=== PATIENT | female | born 1960 | race Caucasian/White ===

== ENCOUNTER 2020-04-30 13:30 | Emergency (ER) | payer OTHER, SELFPAY ==
--- NOTE | ~2020-04-30 | XR_ITS ---
XR tibia fibula RT 2V 04/30/2020 14:03 INDICATION: Right leg pain status post recent fall PROCEDURE: 2 views right tibia/fibula COMPARISON: 08/03/2016 FINDINGS: Fracture, dislocation or subluxation is not identified. The soft tissues appear within norm al limits. No foreign bodies are identified. IMPRESSION: 1: NO ACUTE BONE OR JOINT ABNORMALITY IDENTIFIED. Reviewed, dictated and finalized at location A.
[2020-04-30 13:49] VITALS: PULSE 87; RESP 16; TEMP 36.7; O2SAT 99
[2020-04-30 13:53] VITALS: BP 110/66
--- NOTE | 2020-04-30 14:02 | ED.GENADULT ---
HPI - General Adult General Chief complaint: Extremity Injury, Lower Stated complaint: fell right leg pain Time Seen by Provider: 04/30/20 14:02 Source: patient and RN notes reviewed Mode of arrival: ambulatory (with walker) Limitations: no limitations History of Present Illness HPI narrative: 59-year-old female presents with complains of right anterior-lateral knee-leg (below knee) pain for 1 day. Andra says she fell on 04/29/20 without injury to head. Advil 800mg, last this morning at 09:30 without relief. No radiation of pain. No numbness or tingling, or bleeding. No swelling. No loss of mobility. Exacerbating factor consist of bearing weight. Denies loss of consciousness. No fever or chills. Denies nausea, vomiting, and abdominal pain. LMP hysterectoomy. Remains active. The patient reports she have not been diagnosed with COVID-19. The patient reports she is not waiting for the results of a COVID-19 lab test. The patient reports she do not have fever, chills, weakness, or fatigue. The patient reports she do not have a new or worsening cough or shortness of breath. Denies chest pain. The patient reports she do not have any rhinorrhea, congestion, sore throat, loss of taste, nausea, vomiting, abdominal pain, and diarrhea. Tolerating po intake well. Denies recent traveling. Denies concerns for COVID-19 or exposures been home with limited outdoor exposure except for essential household needs, work, and return home. At this time, patient is not suspected of having COVID-19. Some parts of this dictation were generated by voice recognition software and may contain typographical and/or grammatical inaccuracies. Related Data Home Medications Medication Instructions Recorded Confirmed cetirizine 10 mg tablet 10 mg PO DAILY PRN 07/03/19 02/12/20 fluticasone propionate 50 2 spray NASAL DAILY PRN 07/03/19 02/12/20 mcg/actuation nasal spray,suspension cholecalciferol (vitamin D3) 125 125 mcg PO DAILY 02/12/20 02/12/20 mcg (5,000 unit) capsule cyanocobalamin (vitamin B-12) 5,000 mcg SUBLINGUAL DAILY 02/12/20 02/12/20 5,000 mcg sublingual tablet diazepam 5 mg PO QID PRN 04/30/20 04/30/20 furosemide 20 mg PO QAM 04/30/20 04/30/20 Allergies Allergy/AdvReac Type Severity Reaction Status Date / Time adhesive tape Allergy Unknown BLISTER Verified 02/12/20 11:33 clonazepam AdvReac Unknown Drowsy Verified 02/12/20 11:33 Review of Systems Review of Systems: Narrative: CONSTITUTIONAL: Denies fever, chills, sweats. EYES: Denies visual changes, redness, discharge. ENT: Denies rhinorrhea, congestion, sore throat, otalgia. CARDIOVASCULAR: Denies chest pain, palpitations, edema. RESPIRATORY: Denies dyspnea, wheezing, cough. GASTROINTESTINAL: Denies abdominal pain, nausea, vomiting, diarrhea. GENITOURINARY: Denies dysuria, hematuria, abnormal discharge SKIN: Denies rash or itching. MUSCULOSKELETAL: Denies acute back pain or myalgia. Complains right anterior-lateral knee-leg (below knee) pain. NEUROLOGIC: Denies numbness or focal weakness. PSYCHIATRIC: Denies anxiety or depression. All other systems reviewed & are unremarkable except as noted in HPI and below. [facility] Past Medical History Medical History (Updated 04/30/20 @ 14:28 by RONALD Cruz) Diabetic gastroparesis Essential (primary) hypertension Fibromyalgia Glucose intolerance Intervertebral disc degeneration (~2001) Major depressive disorder, recurrent, moderate Metabolic syndrome Other obesity due to excess calories Primary insomnia Surgical History Surgical History (Updated 04/30/20 @ 14:28 by RONALD Cruz) History of cholecystectomy (~12/04/11) History of gastric bypass (~02/02/09) History of hysterectomy, supracervical (~03/05/06) History of left knee surgery meniscus tear History of lumbar discectomy (~07/05/10) History of lumbar discectomy (~07/05/09) History of lumbar discectomy (~1999) History of lumbar fusion (~
== END 2020-04-30 14:32 | disposition home or self-care (01) ==
PROVIDERS: Emergency Provider Nurse Practitioner Family; PCP Family Medicine
DX: S83.91XA Sprain of unspecified site of right knee, initial encounter (principal); W19.XXXA Unspecified fall, initial encounter; S80.11XA Contusion of right lower leg, initial encounter; Z98.84 Bariatric surgery status; E11.43 Type 2 diabetes mellitus with diabetic autonomic (poly)neuropathy; K31.84 Gastroparesis; I10 Essential (primary) hypertension; M79.7 Fibromyalgia; E66.09 Other obesity due to excess calories; Z68.42 Body mass index [BMI] 45.0-49.9, adult
CPT/HCPCS: 73590; 99213; G0463

== ENCOUNTER → 2020-05-13 11:17 | Outpatient (CLI) | payer OTHER, SELFPAY ==
--- NOTE | ~2020-05-13 | CT_ITS ---
EXAMINATION: CT abdomen pelvis wo/w con DATE: 05/13/2020 11:56 INDICATION: Right lower quadrant abdominal pain. (History of hysterectomy, gastric bypass and cholecy stectomy.) TECHNIQUE: Computed tomography (CT) of the abdomen and pelvis was performed without and subsequently with 100 cc Omnipaque 350 intravenous contrast. Automated exposure control and iterative reconstructi on technique were employed. Exam dose: 1709.80 mGy-cm total exam DLP. COMPARISON: None. FINDINGS: There is mild discoid atelectasis or scarring in both lower lobes. No infiltrate or consoli dation in the included lower lung zones. Normal heart size. No pericardial or pleural effusion. There is postoperative change from gastric bypass surgery. Status post cholecystectomy. The liver, bile ducts, pancreas, pancreatic duct, spleen, and adrenal glands appear normal. Probable 7 mm lower pole left renal cyst; the kidneys are otherwise unremarkable. No urinary tract ca lculus or hydroureteronephrosis. Normal caliber of the abdominal aorta. No intraperitoneal or retroperitoneal or pelvic mass lesion or adenopathy or ascites. The urinary bladder is unremarkable. History of hysterectomy. No bowel obstruction, bowel wall thickening, pneumatosis or intraperitoneal free air. Normal appendix . There is posterior surgical spinal fusion at L1-L5. There is severe degenerative disc disease at L5-S1 with associated mild retrolisthesis. There is mode rate to moderately severe degenerative disease at the remaining lumbar interspaces. There is diffuse idiopathic skeletal hyperostosis of the lower thoracic spine. IMPRESSION: Normal appendix Probable 7 mm lower pole left renal cyst Status post cholecystectomy Status post gastric bypass surgery Status post partial hysterectomy by clinical history Reviewed, dictated and finalized at Location A. Reviewed, dictated and finalized at location A.
[2020-05-13 11:42] LABS: Estimated Glomerular Filt Rate > 60
== END ==
PROVIDERS: PCP Family Medicine; Visit Provider Family Medicine
DX: R10.9 Unspecified abdominal pain (principal); Z98.84 Bariatric surgery status; Z90.710 Acquired absence of both cervix and uterus; Z90.49 Acquired absence of other specified parts of digestive tract; Z79.899 Other long term (current) drug therapy
CPT/HCPCS: 74178; Q9967

== ENCOUNTER → 2020-10-26 14:36 | Outpatient (CLI) | payer OTHER, SELFPAY ==
--- NOTE | ~2020-10-26 | XR_ITS ---
XR hip BI 2V w AP pelvis DATE: 10/26/2020 15:45 INDICATION: Fall. Pelvis and hip injury TECHNIQUE: AP pelvis. AP and lateral views of each hip. COMPARISON: None FINDINGS: There is diffuse osteopenia. No pelvic fracture or bone destruction. Normal alignment at th e pubic symphysis and sacroiliac joints. No fracture or dislocation, avascular necrosis or bone destruction of either hip is evident. Hip join t spaces are symmetric and relatively preserved. Postoperative change and degenerative change of the lumbar spine findings are described in a separate lumbar spine radiographic report today. IMPRESSION: Osteopenia No pelvic or left or right hip fracture or dislocation Reviewed, dictated and finalized at location B.
--- NOTE | ~2020-10-26 | XR_ITS ---
XR_CERV2-3V_CR DATE: 10/26/2020 15:45 INDICATION: Fall. TECHNIQUE: Swimmer's, lateral, AP, open-mouth views COMPARISON: None FINDINGS: Status post anterior cervical spine fusion by plate and screws at C5-C7. Diffuse osteopenia. C1 and C2 are normally aligned and the odontoid process is intact. No fracture or dislocation or lock ed facet or prevertebral soft tissue swelling. IMPRESSION: No fracture or dislocation Status post anterior cervical spine fusion at C5-7 Reviewed, dictated and finalized at Location A. Reviewed, dictated and finalized at location B.
--- NOTE | ~2020-10-26 | XR_ITS ---
XR ribs RT 2V w CXR 2V DATE: 10/26/2020 15:45 INDICATION: Fall. Right rib injury, pain TECHNIQUE: PA and lateral views of the right ribs. 3 views of the right ribs. COMPARISON: 07/27/2017 PA and lateral chest FINDINGS: Normal heart size. No hilar or mediastinal enlargement. No pulmonary infiltrate or consolid ation, pleural effusion or pulmonary vascular congestion or pneumothorax. Diffuse osteopenia. Degenerative spurring of the thoracic spine. No right rib fracture is evident. Status post lumbar spine surgical fusion by pedicle screws and rods. Lumbar laminectomy. IMPRESSION: No active cardiopulmonary disease No right rib fracture is evident Postoperative changes of the cervical and lumbar spine Reviewed, dictated and finalized at location B.
--- NOTE | ~2020-10-26 | XR_ITS ---
XR lumbar spine 6V w bending DATE: 10/26/2020 15:45 INDICATION: Fall. TECHNIQUE: Standing AP and lateral neutral, flexion and extension views. Bilateral oblique views, con ed lateral lumbosacral view COMPARISON: 04/23/2018 lumbar spine FINDINGS: Diffuse osteopenia. Posterior surgical spinal fusion by pedicle screws and rods from L1 through L5 and interbody spinal f usion at L3-4. There is mild retrolisthesis at L2-3 and association with moderately severe degenerative disc disease . There is grade 1 anterolisthesis at L4-5. There is severe degenerative disc disease at L5-S1 with mild retrolisthesis. These findings are stabl e in flexion and extension. There is no significant change since 04/23/2018. The sacroiliac joints are intact. Diffuse idiopathic skeletal hyperostosis of the thoracic spine. Postoperative changes, left upper quadrant. IMPRESSION: No lumbar spine fracture or significant change since 04/23/2018 Reviewed, dictated and finalized at location B.
--- NOTE | ~2020-10-26 | XR_ITS ---
XR sacroiliac joints min 3V DATE: 10/26/2020 15:45 INDICATION: Fall. Sacral and coccygeal injury TECHNIQUE: AP and bilateral oblique views COMPARISON: 10/26/2020 lumbar spine FINDINGS: Surgical lumbar spine fusion from L1 to L5. Severe degenerative disc disease at L5-S1. Diffuse osteopenia. The pubic symphysis and sacroiliac joints are intact. No sacral fracture or bone destruction is evide nt. IMPRESSION: No sacral fracture or bone destruction Reviewed, dictated and finalized at Location A. Reviewed, dictated and finalized at location B.
== END ==
PROVIDERS: PCP Family Medicine; Visit Provider Family Medicine
DX: T14.90XA Injury, unspecified, initial encounter (principal); M48.14 Ankylosing hyperostosis [Forestier], thoracic region; Z98.1 Arthrodesis status; M47.817 Spondylosis without myelopathy or radiculopathy, lumbosacral region
CPT/HCPCS: 71046; 71100; 72040; 72114; 72202; 73521

== ENCOUNTER → 2021-02-21 13:26 | Outpatient (CLI) | payer OTHER, SELFPAY ==
--- NOTE | ~2021-02-21 | DEXA_ITS ---
Bone Density Report Name: Andra Ross Age: 60 Sex: Female Ethnicity: White Date of : 1960 Indication: postmenopausal; screening for osteoporosis; height loss; hysterectomy; Referring Provider: Prieto Meeks Study: Bone densitometry was performed. Exam Date: February 21, 2021 Accession number: [id number] Bone Density: Region BMD T-score Z-score Classification Femoral Neck (Left) 0.802 -0.4 0.8 Normal Total Hip (Left) 0.903 -0.3 0.6 Normal Femoral Neck (Right) 0.754 -0.9 0.4 Normal Total Hip (Right) 0.852 -0.7 0.2 Normal Total Hip Mean 0.878 -0.5 0.4 Normal World Health Organization criteria for BMD impression classify patients as: Normal (T-score at or above -1.0), Osteopenia (T-score between -1.0 and -2.5), or Osteoporosis (T-score at or below -2.5). 10-year Fracture Risk: FRAX not reported because: All T-scores for Spine Total, Hip Total, Femoral Neck at or above -1.0 Clinical Information Provided by Patient: Has used the following medications: Vitamin D, Calcium Has the following medical conditions: Hysterectomy Patient maximum height was 66.5 Menopause Age: 46 No regular weight bearing exercise Does not regularly consume dairy products Drinks caffeinated beverages Onset of menses at age 11.5 Number of children 0 Impression: The patient has normal bone mass. Discussion: BONE DENSITY IS ABOVE THE MINIMUM DESIRABLE LEVEL AT ALL SKELETAL SITES TESTED. This patient?s bone mineral density is above the minimum desirable level (T-score -1.0 or better) at all sites measured. The patient should follow a healthful lifestyle (good nutrition with adequate calcium and vitamin D, and appropriate weight-bearing exercise). Follow-Up: Consider repeating this study in 5 years or sooner if there is some new clinical indication. Reported by: SAMI on 02/21/2021 1:47:00 PM. Reviewed, dictated and finalized at location ACandis QUIÑONES
== END ==
PROVIDERS: PCP Family Medicine; Visit Provider Family Medicine
DX: Z78.0 Asymptomatic menopausal state (principal)
CPT/HCPCS: 77080

== ENCOUNTER → 2021-03-07 12:13 | Outpatient (CLI) | payer OTHER, SELFPAY ==
--- NOTE | ~2021-03-07 | MR_ITS ---
EXAMINATION: MR thoracic spine wo con DATE: 03/07/2021 13:27 INDICATION: Thoracic back pain. TECHNIQUE: Magnetic resonance imaging (MRI) of the thoracic spine was performed without intravenous c ontrast. Sagittal localizer T1-weighted FSE of the cervical spine was obtained. Thoracic spine sequen darby included sagittal T2-weighted FSE, sagittal T1-weighted FSE, sagittal T2-weighted FS FSE, and axi al T2-weighted FSE. COMPARISON: None FINDINGS: There is 5 degrees dextrocurvature of thoracic spine. There is 2 mm anterolisthesis of T2 o n T3 and 4 mm retrolisthesis of T12 on L1. There is mild chronic anterior wedging of T3, T10, T11, T1 2, and L1 vertebral bodies. There are changes of posterior fusion procedure in lumbar spine and samuel es of anterior fusion procedure in cervical spine. There is mildly decreased disc height at most leve ls in thoracic spine. There is multilevel facet joint osteoarthritis, severe at some levels. At T5-T6 , there is a right central extrusion with mild central canal stenosis. At T9-T10, there is a left mark tral extrusion with mild central canal stenosis. At T10-T11, disc is bulging with mild central canal stenosis. At T11-T12, the disc is bulging with mild central canal stenosis. At T12-L1, the disc is bu lging with mild central canal stenosis. There is mild neural foraminal stenosis at many levels bilate rally. On the right, there is moderate neural foraminal stenosis at T10-T11 and T12-L1. On the left, there is moderate neural foraminal stenosis at T6-T7, T10-T11, and T12-L1. The spinal cord signal int ensity is normal. IMPRESSION: 1. Moderate thoracic spondylosis. Reviewed, dictated and finalized at location A.
== END ==
PROVIDERS: PCP Family Medicine
DX: M47.814 Spondylosis without myelopathy or radiculopathy, thoracic region (principal)
CPT/HCPCS: 72146

== ENCOUNTER → 2021-04-04 02:41 | Outpatient (CLI) | payer OTHER, SELFPAY ==
[2021-04-06 19:18] LABS: SARS-CoV-2 RNA PCR Negative
== END ==
PROVIDERS: PCP Family Medicine; Visit Provider Family Medicine
DX: R53.83 Other fatigue (principal); R50.9 Fever, unspecified
CPT/HCPCS: C9803; U0003; U0005

== ENCOUNTER → 2022-03-01 08:38 | Outpatient (CLI) | payer OTHER, SELFPAY ==
--- NOTE | ~2022-03-01 | MR_ITS ---
EXAMINATION: MR cervical spine wo con DATE: 03/01/2022 09:46 INDICATION: Impairment of balance TECHNIQUE: Magnetic resonance imaging (MRI) of the cervical spine was performed without intravenous c ontrast. Sequences included sagittal T2-weighted FSE, sagittal T2-weighted FS FSE, sagittal T1-weight ed FSE, axial MERGE and axial T2-weighted FSE. COMPARISON: Cervical spine CT dated 10/09/2016 FINDINGS: Osseous alignment of the cervical spine is normal. 2 mm anterolisthesis T1 on T2. Again seen is C5-C7 anterior spinal fusion with anterior plate and screw fixation.Unfused vertebral body heights are nor mal. Mild disc height loss at C7-T1 with annular fissure and disc extrusion. Mild disc height loss at T1-T2 and T2-T3. Additional annular fissure and disc extrusion at C4-C5 without appreciable disc hei ght loss. Bone marrow signal intensity is normal. Cervical soft tissues are unremarkable. Cord signa l intensity is normal. The following disc levels are specifically discussed: C2-C3: The disc does not extend beyond the endplate margin. There is no uncovertebral joint osteoarth ritis. There is mild left and minimal right facet joint osteoarthritis. There is no neural foraminal stenosis. There is no central canal stenosis. C3-C4: The disc does not extend beyond the endplate margin. There is minimal bilateral uncovertebral joint osteoarthritis. There is minimal bilateral facet joint osteoarthritis. There is mild right neur al foraminal stenosis. There is no central canal stenosis. C4-C5: Disc is bulging with annular fissure and small left paracentral disc extrusion with disc mater ial extending up to 4 mm caudal to the level of the superior endplate of C5 and which mildly flattens the left ventral surface of the cord. There is mild to moderate left and mild right uncovertebral deborah int osteoarthritis. There is mild bilateral facet joint osteoarthritis. There is mild bilateral neura l foraminal stenosis. There is mild central canal stenosis. C5-C6: Disc space is fused with small right paracentral osteophyte with mild indentation of the right ventral surface of the cord. There is mild bilateral facet joint osteoarthritis. There is mild right neural foraminal stenosis. There is mild central canal stenosis. C6-C7: Disc space is fused with mild hypertrophic change at the central aspect of the disc space. The re is mild bilateral facet joint osteoarthritis. There is no neural foraminal stenosis. There is mini mal central canal stenosis. C7-T1: Annular fissure with left foraminal zone disc extrusion with disc material extending a few mil limeters cephalad and caudal to the level of the endplates. There is mild bilateral uncovertebral narcisa nt osteoarthritis. There is mild bilateral facet joint osteoarthritis. There is mild right and modera te left neural foraminal stenosis. There is mild central canal stenosis. IMPRESSION: 1. C5-C7 anterior spinal fusion with mild cervical spondylosis. Reviewed, dictated and finalized at location A.
== END ==
PROVIDERS: PCP Emergency Medicine
DX: R26.89 Other abnormalities of gait and mobility (principal); Z98.1 Arthrodesis status; M47.812 Spondylosis without myelopathy or radiculopathy, cervical region
CPT/HCPCS: 72141

== ENCOUNTER 2022-08-15 00:11 | Day surgery (SDC) | payer OTHER, SELFPAY ==
[2022-07-31 14:34] VITALS: BMI 42.7
[2022-08-15 09:39] VITALS: BP 136/78; PULSE 75; RESP 20; TEMP 36.1; O2SAT 96
[2022-08-15] MEDS: LACTATED RINGERS 1,000 ML 150 ML IV CONT (09:59)
[2022-08-15 10:02] LABS: Glucose Point of Care 111 mg/dl (65-105)
--- NOTE | 2022-08-15 10:02 | WPDANESEPPF ---
Anes - Initial Pre Proc Eval Procedure: Operation Date: 08/15/22 11:00 Proposed Procedures p Screening Colonoscopy - Ashkan Dyer MD Date/Time: 08/15/22 10:02 Surgeon: Ashkan Dyer MD Pre Op Diagnosis: hx colon polyps Patient Data Age: 61 Gender: F Height: 1.63 m Weight: 110.8 kg Last Vital Signs Temp 97 F L 08/15/22 09:39 Pulse 75 08/15/22 09:39 Resp 20 08/15/22 09:39 BP 136/78 08/15/22 09:39 Pulse Ox 96 08/15/22 09:39 O2 Del Method Room Air 08/15/22 09:39 Allergies Allergy/AdvReac Type Severity Reaction Status Date / Time adhesive tape Allergy Unknown BLISTER Verified 08/15/22 09:38 Home Medications Medication Instructions Recorded Confirmed Type cetirizine 10 mg tablet (Zyrtec) 10 mg PO DAILY PRN Allergy Symptoms 07/03/19 07/31/22 History syringe with needle, safety 3 mL #20 ea 10/03/20 04/10/22 Rx 25 gauge x 1 (BD Integra Syringe) metronidazole 1 % topical gel 1 applic topical DAILY #60 grams 01/03/22 07/31/22 Rx (Metrogel) duloxetine 60 mg capsule,delayed 120 mg PO DAILY #180 caps 03/19/22 07/31/22 Rx release albuterol sulfate 90 mcg/actuation 2 puff inhalation Q4H PRN 03/22/22 07/31/22 Rx aerosol inhaler (Ventolin HFA) bronchospasm #8.5 grams metoprolol tartrate 50 mg tablet 50 mg PO DAILY #90 tabs 03/22/22 07/31/22 Rx zolpidem 10 mg tablet 10 mg PO QHS PRN insomnia #90 tabs 06/14/22 07/31/22 Rx pregabalin 150 mg capsule 150 mg PO TID #90 caps 06/21/22 07/31/22 Rx methocarbamol 1,000 mg tablet 1,000 mg PO TID PRN chronic pain 07/02/22 07/31/22 Rx #120 tabs trazodone 100 mg tablet See Rx Instructions .Route 07/06/22 07/31/22 Rx .COMPLEX #270 tabs diazepam 5 mg tablet 5 mg PO QID PRN anxiety #60 tabs 07/19/22 07/31/22 Rx aspirin 81 mg capsule 162 mg PO EVERY OTHER DAY 07/31/22 07/31/22 History cyanocobalamin (vitamin B-12) 1,000 mcg IM WEEKLY 07/31/22 07/31/22 History 1,000 mcg/mL injection solution phentermine 37.5 mg tablet 37.5 mg PO DAILY 07/31/22 07/31/22 History semaglutide 0.25 mg or 0.5 mg (2 mg subcut 07/31/22 History mg/1.5 mL) subcutaneous pen injector (Ozempic) Laboratory Tests 08/15/22 09:58 POC Capillary Glucose Pending Patient hx anesthesia problems: none Family hx anesthesia problems: none Results Review: All pre-operative results and documents have been reviewed as part of the pre-operative evaluation. [facility] Past Medical History Medical History Abdominal pain in female Acute cystitis Acute non-recurrent maxillary sinusitis Diabetic gastroparesis Diarrhea of presumed infectious origin Essential (primary) hypertension Fibromyalgia Glucose intolerance History of miscarriage x 1 Intervertebral disc degeneration (~2001) Major depressive disorder, recurrent, moderate Metabolic syndrome Other obesity due to excess calories Preoperative clearance Primary insomnia RLQ discomfort Surgical History Surgical History History of cholecystectomy (~12/04/11) History of dilatation and curettage History of gastric bypass (~02/02/09) History of hysterectomy, supracervical (~03/05/06) History of left knee surgery meniscus tear History of lumbar discectomy (~07/05/10) History of lumbar discectomy (~07/05/09) History of lumbar discectomy (~1999) History of lumbar fusion (~09/05/13) S/P cervical spinal fusion (~03/05/14) Family History Family History Mother Hypertension Vascular disease Cerebrovascular accident Dementia Father Brain cancer Other Breast cancer Maternal niece Ovarian cancer Paternal cousin Other Family history of malignant neoplasm of breast Family history of malignant neoplasm of ovary No family history of malignant neoplasm Social History Social History (Reviewed 06/07
--- NOTE | 2022-08-15 10:17 | PM.HPGS ---
History of Present Illness History of Present Illness Consent: Risks, benefits, and alternatives have been discussed and questions answered. Patient agrees to proceed with procedure. Chief complaint: hx colon polyps Narrative: Andra Ross is a 61 year old female Referred for colon cancer screening. She has a history of polyps. Review of Systems Review of Systems: All systems reviewed & are unremarkable except as noted in HPI and below PMFSH Past Medical History Medical History Abdominal pain in female Acute cystitis Acute non-recurrent maxillary sinusitis Diabetic gastroparesis Diarrhea of presumed infectious origin Essential (primary) hypertension Fibromyalgia Glucose intolerance History of miscarriage x 1 Intervertebral disc degeneration (~2001) Major depressive disorder, recurrent, moderate Metabolic syndrome Other obesity due to excess calories Preoperative clearance Primary insomnia RLQ discomfort Surgical History Surgical History History of cholecystectomy (~12/04/11) History of dilatation and curettage History of gastric bypass (~02/02/09) History of hysterectomy, supracervical (~03/05/06) History of left knee surgery meniscus tear History of lumbar discectomy (~07/05/10) History of lumbar discectomy (~07/05/09) History of lumbar discectomy (~1999) History of lumbar fusion (~09/05/13) S/P cervical spinal fusion (~03/05/14) Family History Family History Mother Hypertension Vascular disease Cerebrovascular accident Dementia Father Brain cancer Other Breast cancer Maternal niece Ovarian cancer Paternal cousin Other Family history of malignant neoplasm of breast Family history of malignant neoplasm of ovary No family history of malignant neoplasm Social History Social History Smoking status: Never smoker Tobacco type: cigarettes Second hand tobacco smoke exposure: No Alcohol intake: former Substance use: never Substance use type: does not use Living arrangements: with family 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 Gender identity (if verbalized by the patient): Female Sexual Orientation (if Verbalized by the Patient): Straight or Heterosexual Spiritual care concerns: No Meds Home Medications and Allergies Home Medications Medication Instructions Recorded Confirmed Type cetirizine 10 mg tablet (Zyrtec) 10 mg PO DAILY PRN Allergy Symptoms 07/03/19 07/31/22 History syringe with needle, safety 3 mL #20 ea 10/03/20 04/10/22 Rx 25 gauge x 1 (BD Integra Syringe) metronidazole 1 % topical gel 1 applic topical DAILY #60 grams 01/03/22 07/31/22 Rx (Metrogel) duloxetine 60 mg capsule,delayed 120 mg PO DAILY #180 caps 03/19/22 07/31/22 Rx release albuterol sulfate 90 mcg/actuation 2 puff inhalation Q4H PRN 03/22/22 07/31/22 Rx aerosol inhaler (Ventolin HFA) bronchospasm #8.5 grams metoprolol tartrate 50 mg tablet 50 mg PO DAILY #90 tabs 03/22/22 07/31/22 Rx zolpidem 10 mg tablet 10 mg PO QHS PRN insomnia #90 tabs 06/14/22 07/31/22 Rx pregabalin 150 mg capsule 150 mg PO TID #90 caps 06/21/22 07/31/22 Rx methocarbamol 1,000 mg tablet 1,000 mg PO TID PRN chronic pain 07/02/22 07/31/22 Rx #120 tabs trazodone 100 mg tablet See Rx Instructions .Route 07/06/22 07/31/22 Rx .COMPLEX #270 tabs diazepam 5 mg tablet 5 mg PO QID PRN anxiety #60 tabs 07/19/22 07/31/22 Rx aspirin 81 mg capsule 162 mg PO EVERY OTHER DAY 07/31/22 07/31/22 History cyanocobalamin (vitamin B-12) 1,000 mcg IM WEEKLY 07/31/22 07/31/22 History 1,000 mcg/mL injection solution phentermine 37.5 mg tablet 37.5 mg PO DAILY 07/31/22 07/31/22 History semaglutide 0.25 mg or 0.5 mg (2 mg subcut 07/31/22 History mg/1.5 mL) subcutaneo
[2022-08-15 10:34] VITALS: BP 79/45; PULSE 67; RESP 16; O2SAT 95
[2022-08-15 10:44] VITALS: BP 134/70; PULSE 69; RESP 16; O2SAT 100
[2022-08-15 10:54] VITALS: BP 134/69; PULSE 67; RESP 16; O2SAT 100
== END 2022-08-15 11:17 | disposition home or self-care (01) ==
PROVIDERS: Visit Provider Internal Medicine Gastroenterology
PROC: 0DJD8ZZ Inspection of Lower Intestinal Tract, Via Natural or Artificial Opening Endoscopic (ICD-10-PCS; CPT 45378; principal; 2022-08-15 11:00)
DX: Z12.11 Encounter for screening for malignant neoplasm of colon (principal); Z86.010 Personal history of colon polyps; I10 Essential (primary) hypertension; E11.43 Type 2 diabetes mellitus with diabetic autonomic (poly)neuropathy; K31.84 Gastroparesis; M79.7 Fibromyalgia; F33.1 Major depressive disorder, recurrent, moderate; Z79.51 Long term (current) use of inhaled steroids; Z79.82 Long term (current) use of aspirin; Z79.899 Other long term (current) drug therapy; Z98.84 Bariatric surgery status; Z98.1 Arthrodesis status; E66.01 Morbid (severe) obesity due to excess calories; Z68.41 Body mass index [BMI] 40.0-44.9, adult
CPT/HCPCS: 45378; 82948; J2704; J7120

== ENCOUNTER → 2023-01-02 13:31 | Outpatient (CLI) | payer OTHER, SELFPAY ==
--- NOTE | ~2023-01-02 | MR_ITS ---
MRI of the cervical spine Clinical History: Pain Technique: Axial T2-weighted and gradient images, and sagittal T1-weighted, T2-weighted, and STIR jr ges were acquired. COMPARISON: 03/01/2022 Findings: No acute fracture or subluxation of the cervical spine is seen. Osseous alignment is unchan ged from prior exam. There is anterior fusion from C5 to C7, with fusion across the C5-C6 and C6-C7 d isc spaces as well. No suspicious bone marrow signal abnormality seen. At C2-C3, there is no disc bulge or herniation. No spinal canal stenosis, cord compression, or neural foraminal narrowing. At C3-C4, there is no significant disc bulge or herniation. No spinal canal stenosis, cord compressio n, or neural foraminal narrowing. At C4-C5, there is disc osteophyte complex, most pronounced in the left paracentral region, resulting in mild to moderate canal stenosis and cord compression. There is bilateral neural foraminal narrowi ng. At C5-C6, there is a right paracentral osteophyte. No ariana canal stenosis or cord compression. Neura l foramina are preserved. At C6-C7, there is no disc bulge or herniation. No spinal canal stenosis, cord compression, or neural foraminal narrowing. No abnormal signal evident in the spinal cord. Paravertebral soft tissues are unremarkable. Impression: Mild to moderate canal stenosis and cord compression at C4-C5, related to disc osteophyte complex, mo st pronounced in the left paracentral region. Degree of compression is mildly progressed since prior exam. Associated bilateral neural foraminal narrowing at C4-C5. Stable anterior fusion from C5 to C7. Reviewed, dictated and finalized at location M. Impression: Mild to moderate canal stenosis and cord compression at C4-C5, related to disc osteophyte complex, most pronounced in the left paracentral region. Degree of c ompression is mildly progressed since prior exam. Associated bilateral neural foraminal narrowing at C4-C5. Stable anterior fusion from C5 to C7.
--- NOTE | ~2023-01-02 | MR_ITS ---
MRI of the thoracic spine Clinical History: Pain Technique: Axial T2-weighted and gradient images, and sagittal T1-weighted, T2-weighted, and STIR jr ges were acquired. Findings: There is no fracture or subluxation of the thoracic spine. Thoracic vertebral bodies mainta in normal height and alignment. No suspicious marrow signal abnormality seen in the thoracic spine. T here are several small scattered intraosseous hemangiomas. There is mild degenerative disc change/narrowing throughout the thoracic spine. No significant disc b ulge or herniation seen at any thoracic level. No spinal canal stenosis or cord compression identifie d. No epidural mass or collection seen. No abnormal signal seen in the spinal cord. Paravertebral soft tissues are unremarkable. Impression: Minimal degenerative disc change throughout the thoracic spine. No other significant findings. Reviewed, dictated and finalized at [facility]. Impression: Minimal degenerative disc change throughout the thoracic spine. No other significant findings.
== END ==
PROVIDERS: PCP Family Medicine Adolescent Medicine
DX: M54.12 Radiculopathy, cervical region (principal); M48.02 Spinal stenosis, cervical region; Z98.1 Arthrodesis status
CPT/HCPCS: 72141; 72146

== ENCOUNTER → 2023-10-03 11:32 | Outpatient (CLI) | payer OTHER, SELFPAY ==
--- NOTE | ~2023-10-03 | XR_ITS ---
Left Knee Technique: AP, lateral, and sunrise views were obtained. Clinical History: Pain Findings: No fracture or dislocation is seen. Osseous alignment is anatomic. Minimal patellar spurrin g noted. Soft tissues are unremarkable. No joint effusion is seen. Impression: Minimal patellar spurring. Reviewed, dictated and finalized at location . EGE RECRUITER Impression: Minimal patellar spurring.
== END ==
PROVIDERS: PCP Nurse Practitioner Family; Visit Provider Nurse Practitioner Family
DX: M25.562 Pain in left knee (principal); M76.52 Patellar tendinitis, left knee
CPT/HCPCS: 73562

== ENCOUNTER 2024-07-15 14:18 | Outpatient (CLI) | payer OTHER, SELFPAY ==
--- NOTE | ~2024-07-15 | XR_ITS ---
XR foot RT 2V Ordering provider: Leana Luna APRN History: . S99.921A - Unspecified injury of right foot, initial enco... . Comparison: None. FINDINGS: BONES: Fracture of the midshaft of the proximal phalanx of the second toe. JOINT SPACES: Narrowing of the proximal and distal interphalangeal joints. No tarsal coalition. SOFT TISSUES: Ossification of the insertion of the tendo Achilles. IMPRESSION: Fracture of the proximal phalanx of the second toe with no displacement. Proximal and distal interphalangeal joint osteoarthritic changes. Reviewed, dictated and finalized at location A. CONTROL MECHANIC
== END 2024-07-15 14:19 | disposition home or self-care (01) ==
LOC: MICIMG 14:19
PROVIDERS: PCP Nurse Practitioner Family; Visit Provider Nurse Practitioner Family
DX: S92.514A Nondisplaced fracture of proximal phalanx of right lesser toe(s), initial encounter for closed fracture (principal); X58.XXXA Exposure to other specified factors, initial encounter; M19.071 Primary osteoarthritis, right ankle and foot
CPT/HCPCS: 73620

== ENCOUNTER 2024-09-25 12:07 | Outpatient (CLI) | payer OTHER, SELFPAY ==
--- NOTE | ~2024-09-25 | CT_ITS ---
EXAMINATION: CT abdomen pelvis wo con DATE: 09/25/2024 12:46 INDICATION: Unspecified abdominal pain. TECHNIQUE: Computed tomography (CT) of the abdomen and pelvis was performed without intravenous contr ast. Automated exposure control and iterative reconstruction technique were employed. The dose-length product was 1587.78 mGy-cm. COMPARISON: 05/23/2020 FINDINGS: Discoid atelectasis in the bilateral lower lobes, left greater than right. Small calcified left lower lobe nodule consistent with old granulomatous disease. Heart size is normal. No pericardial or pleur al effusion. Postoperative change of prior gastric bypass procedure with antecolic Hernandez limb extendin g to the jejunojejunal anastomosis in the left abdomen. Gallbladder is not displaced likely surgicall y absent. Liver, spleen, pancreas, bilateral adrenal glands and kidneys are normal. No bowel obstruct ion. Normal appendix. Bladder is normal. The uterus is not identified and has likely been surgically resected. Bilateral adnexa are unremarkable. No free intraperitoneal gas or fluid. No pathologically enlarged abdominal or pelvic lymphadenopathy. Severe lumbar and lower thoracic spondylosis. L2-L4 rodgers inectomies with instrumented L1-L5 posterior spinal fusion with bilateral vertical ronnie and pedicle sc rew fixation. There is also anterior spinal fusion with intervertebral bone graft cage at L3-L4. IMPRESSION: 1. No acute intra-abdominal/pelvic process. 2. Postoperative changes of prior cholecystectomy, Hernandez-en-Y gastric bypass procedure, hysterectomy a nd instrumented L1-L5 posterior and L3-L4 anterior spinal fusions. Reviewed, dictated and finalized at location A. ENT WORKER IMPRESSION: 1. No acute intra-abdominal/pelvic process. 2. Postoperative changes of prior cholecystectomy, Hernandez-en-Y gastric bypass pro cedure, hysterectomy and instrumented L1-L5 posterior and L3-L4 anterior spinal fusions.
--- OUTSIDE RECORDS SUMMARY | 2024-09-25 12:09 | XMS_ITS | Clinical Summary ---
Author Organization [facility] Address [address] [place] [address] Care Team Providers Care Procurement Agent Name Role Phone Molly Figueroa MD Primary Care Provider Reena Solitario ANTIQUER Unavailable [phone] Leana Luna ANTIQUER Unavailable [phone] Allergies Active Allergy Reactions Criticality Noted Date Comments Gluten Other (See comments) ,Diarrhea,Nausea And Vomiting Low 03/26/2022 Adhesive Rash Medium 07/10/2016 Medications LYRICA 150 mg capsule Take 150 mg by mouth 3 (three) times a day as needed 2 8 Active albuterol HFA (PROVENTIL HFA,VENTOLIN HFA,PROAIR HFA) 90 mcg/actuation inhaler Inhale 2 puffs as needed 2 Active cholecalciferol (VITAMIN D-3) 3,000 unit tablet Take 6,000 Units by mouth daily 2 Active ferrous fumarate 325 mg (106 mg iron) tabletIndication s:History of gastric bypass Take 1 tablet (325 mg total) by mouth daily with breakfast 90 tablet [address] (CYMBALTA) 60 mg capsuleIndicatio ns:AMBER (generalized anxiety disorder) Take 1 capsule (60 mg total) by mouth 2 (two) times a day 180 capsule 1 3 Active zolpidem (AMBIEN) 5 mg tabletIndication s:Sleep-Onset Insomnia Take 1 tablet (5 mg total) by mouth nightly as needed for sleep 10 tabs needs to last 30 days 10 tablet 3 Active Additional Information Patient not taking.Reported on 10/26/2022 mupirocin (BACTROBAN) 2 % ointmentIndicati ons:Rash and nonspecific skin eruption Apply topically 3 (three) times a day To sores on face and torso for 2-3 weeks until healed 22 g 1 3 Active metoprolol tartrate (LOPRESSOR) 50 mg immediate release tabletIndication s:Hypertension, essential Take 1 tablet (50 mg total) by mouth 2 (two) times a day 180 tablet 1 3 Active methocarbamoL (ROBAXIN) 500 mg tabletIndication s:Chronic pain syndrome,Failed back syndrome,Fibromy algia Take 1-2 tablets (500-1,000 mg total) by mouth 3 (three) times a day as needed for muscle spasms 540 tablet 3 Active traZODone (DESYREL) 100 mg tablet Take 3 tablets (300 mg total) by mouth nightly 270 tablet 1 3 Active buprenorphine (BUTRANS) 10 mcg/hourIndicati ons:Lumbar post-laminectomy syndrome,Chronic midline low back pain without sciatica,Fibromy algia Place 1 patch on the skin every 7 days 4 patch 3 Active semaglutide 0.25 mg or 0.5 mg (2 mg/3 mL) pen injector injectionIndicat ions:Prediabetes Inject 0.5 mg under the skin every 7 days 9 mL 1 3 Active Active Problems Problem Noted Date Diagnosed Date Moderate episode of recurrent major depressive d isorder 10/26/2022 Sedative dependence (CMS/[facility]) 10/26/2022 Primary insomnia 10/26/2022 Sacroiliitis 10/20/2022 Lumbar post-laminectomy syndrome 10/02/2022 Lumbar radiculitis 10/02/2022 Prediabetes 08/29/2022 Overview (08/29/2022): unclear if controlled Dm or true Pre-DM. get records. continue ozempic for now. work on diet, exercise, wt loss Mild intermittent asthma without complication 01 / Lumbar stenosis 12/04/2016 Chronic midline low back pain without sciatica 0 10/09/2016 AMBER (generalized anxiety disorder) 10/09/2016 [id number] spots 08/29/2015 Fibromyalgia 05/18/2015 Vitamin D deficiency 03/10/2015 Hypertension, essential 03/10/2015 Spondylolisthesis of lumbar region 09/09/2013 Immunizations Immunization Administration Dates Next Due Influenza, Quadrivalent, Rec ombinant, Egg Free, Preservative Free, Intramuscular 07/15/2020,07/03/2019 Influenza, Quadrivalent, Spl it, Preservative Free, Intramuscular 04/15/2018 Influenza, Trivalent, IM (MDV) 05/06/2016,2012,05/05/2011 Influenza, Trivalent, Preser vative Free, Intramuscular 05/05/2014 Pfizer SARS-CoV-2 Monovalent Vaccination (12+ Yrs) PURPLE 07/27/2021,10/27/2020,10/06/2020 Td, Unspecified 04/02/1995 Tdap 04/16/2007 Surgical History Surgery Date Site/Laterality Comments SC ARTHRD ANT INTERBODY MIN DSC LUMBAR Lumbar Vertebral Fusion - (Added by TW Conv) SC ARTHRD ANT INTERBODY MIN DSC CRV BELOW C2 Cervical Vertebral Fusion - (Added by TW Conv) SC CHOLECYSTECTOMY Cholecystectomy - (Added by TW Conv) GASTRIC BYPASS High Gastric Bypass - (Added by TW Conv) SC ARTHROSCOPY KNEE W/MENISCUS RPR MEDIAL/LATERAL Knee Arthroscopy With Lateral Meniscus Repair - (Added by TW Conv) BACK SURGERY Back Surgery - (Added by TW Conv) SC NEUROPLASTY &/TRANSPOS MEDIAN NRV CARPAL TUNNE Neuroplasty Decompression Median Nerve At Carpal Tunnel - (Added by TW Conv) LAPRASCOPIC SUPRACERVICAL HYSTERECTOMY Supracervical Hysterectomy Laparoscopic - (Added by TW Conv) FACET BLOCK CERVICAL THORACIC 1 LEVEL LEFT 03/22/2021 Bilateral HYSTERECTOMY At age 41, partial SPINE SURGERY 7 surgeries beginnin g approx. 20 yr ago with resulting in failed back syndrome s. ago with concommitent BARIATRIC SURGERY Completed approx. 2009 Medical History Medical History Date Comments Personal history of other diseases of the respiratory system History of asthma - (Added by TW Conv) Personal history of other me ntal and behavioral disorders History of depression - (Added by TW Conv) Personal history of other diseases of the musculoskeletal system and connective tissue History of fibromyalgia - (Added by TW Conv) Hypertension Fibromyalgia Arthritis Sinusitis Depression Insomnia Anemia Until March 2022, n oted via blood results Anxiety Dx. over 10 yrs ago. Autoimmune disease (CMS/HCC) (HCC) Fibro myalgia Infection Upper resp. Infectio n, possible pneumonia. Family History Medical History Relation Name Comments Diabetes Brother Antonio Hewitt Vision loss Brother Antonio Hewitt Arthritis Father Jesus E. Scherff Family his tory of arthritis - (Added by TW Conv) Cancer Father Jesus E. Scherff brain tumo r Coronary artery disease Father Jesus E. Scherff Depression Father Jesus E. Scherff Diabetes Father Jesus E. Scherff Family his tory of diabetes mellitus - (Added by TW Conv) Hyperlipidemia Father Jesus E. Scherff Hypertension Father Jesus E. Scherff Family his tory of hypertension - (Added by TW Conv) Lung cancer Father Jesus E. Scherff Obesity Father Jesus E. Scherff Rashes / Skin problems Father Jesus E. Scherff Vision loss Father Jesus ECandis Scherff Arthritis Mother Anais Hewitt (Mother) Depression Mother Anais Hewitt (Mother) Family history of depression - (Added by TW Conv) Heart disease Mother Anais Hewitt (Mother) Famil y history of cardiac disorder - (Added by TW Conv) Hyperlipidemia Mother Anais Hewitt (Mother) Memory loss Mother Anais Hewitt (Mother) Rashes / Skin problems Mother Anais Hewitt (Moth er) Vision loss Mother Anais Hewitt (Mother) Cancer Other 1 Family history of cancer - (Added by TW Conv) Coronary artery disease Other 2 Fami ly history of coronary artery disease - (Added by TW Conv) Diabetes Other 3 Family history of diabetes mellitus - (Added by TW Conv) Hypertension Other 4 Family history of hypertension - (Added by TW Conv) Relation Name Status Comments Brother Atnonio Hewitt Father Jesus Hilliard Scherff Mother Anais Hewitt (Mother) Other 1 Other 2 Other 3 Other 4 Social History Tobacco Use Types Packs/Day Years Used Date Smoking Tobacco: Never Smokeless Tobacco: Never Alcohol Use Standard Drinks/Week Comments Never 0 (1 standard drink = 0.6 oz pur e alcohol) PHQ-2 Answer Date Recorded PHQ-2 Total Score (If total score is 3 or more points, staff should administer the PHQ-9) 2 10/26/2022 Comments No Sex and Gender Information Value Date Recorded Sex Assigned at Not on file 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 Gender Identity Not on file Sexual Orientation Not on file Obstetrics History Last Filed Vital Signs Vital Sign Reading Time Taken Comments Blood Pressure 138/77 10/30/2022 1:06 PM CDT Pulse 72 10/30/2022 1:06 PM CDT Temperature 37.8 C (100.1 F) 01/12/2022 9:39 AM CDT Respiratory Rate 16 10/17/2022 3:35 PM CDT Oxygen Saturation 95% 10/30/2022 1:06 PM CDT Inhaled Oxygen Concentration - - Weight 109.1 kg (240 lb 8 oz) 10/30/2022 1:06 PM CDT Height 164.5 cm (5' 4.76 ) 10/30/2022 1:06 PM CD T Body Mass Index 40.31 10/30/2022 1:06 PM CDT Plan of Treatment Health Maintenance Due Date Last Done Comments Breast Cancer Screening-Mammogram 1961 Hepatitis C Screening 1960 Hepatitis B Screening 11/27/1979 Regular Well Visit/Exam 18-64 11/27/1979 Pneumococcal vaccine <65 (1 of 2 - PCV) 1980 Zoster Vaccine (1 of 2) 11/27/2011 DTaP/Tdap/Td Vaccine (2 - Td or Tdap) 04/16/2017 04/16/2007, 04/02/1995 Depression Screening 10/27/2023 10/26/2022, 10/26/2022, 08/29/2022, Additional history exists Covid-19 Vaccine ( - 2023-2 5 season) 2024 07/27/2021, 10/27/2020, 10/06/2020 Influenza Vaccine (#1) 2024 , 07/03/2019, 04/15/2018, Additional history exists Colon Cancer Screening-Colonoscopy 08/15/2027 08/15/2022 Colon Cancer Screening-CT Colonography Discontinued 08/15/2022 Colon Cancer Screening-DNA Stool Discontinued 08/15/19 Colon Cancer Screening-FIT Discontinued 08/15/2022 Colon Cancer Screening-Sigmoidoscopy Discontinued 08/15/2022 Procedures Procedure Name Priority Date/Time Associated Diagnosis Comments COLONOSCOPY Routine 08/15/2022 from Last 3 Months or Most Recently Relevant to Health Maintenance Results * COLONOSCOPY (08/15/2022) us Historical Provider MD HEALTH MAINTENANCE Final Result from Last 3 Months or Most Recently Relevant to Health Maintenance Insurance [facility] Member Subscriber Plan / Payer (Ef fective 2020-Present) Name:Andra Ross Relation to Subscriber:Spouse Name:EMY ROSS Date of :1962 (Home) Address: [address] [place] [id number] Payer ID:[id number] (NAIC) Type:[facility] HMO/PPO Address: [place] [id number] [facility] Advance Directives For more information, please contact: [phone] * Full Code (Latest Code Status on File) Date Activated Date Inactivated Comments 08/17/2021 9:30 AM 08/18/2021 4:36 AM Care Teams Procurement Agent Relationship Specialty Start Date End Date Molly Figueroa MD PCP - General Family Practice 08/29/22 Reena Solitario NP [address] [place] [address] Nurse Practitioner Psychiatry 10/26/22 Leana Lnua NP [address] [place] [address] Nurse Practitioner Family Practice 03/11/23
--- OUTSIDE RECORDS SUMMARY | 2024-09-25 12:09 | XMS_ITS | Continuity of Care Document ---
Author Organization [facility] Address [address] [place] [address] Phone Care Team Providers Care Applications Support Analyst Name Role Phone Myke Reed MD Unavailable Unavailable Advance Directives Directive Yes / No Effective Date File Name No Information Encounters Encounter Description Practice Location Reason(s) For Visit Diagnoses Date Provider Providers Copied on Encounter [facility] , [address] [facility] [address], [place], [address], tel:[phone] [facility] No Information 2 Derek Stringer. [address] [place], [place], [id number] . tel:[phone] Referring Provider: Jean Perla [address], [place], [address] . tel:[phone] Family History Family Member Type Diagnosis Age At Onset No Information Payers Payer name Insurance type Covered republican ID Authoriza dom(s) UMR [id number] [id number] Social History Type Description Quantity Date Captured Comments Sex Female Smoking Status No Information Chief Complaint And Reason For Visit No Information Reason For Referral Reason For Referral No Information History Of Present Illness Encounter Date Complaint History Of Prese nt Illness No Information Functional Status Date Functional Assessmen t No Information Instructions Date Instruction Additional Infor mation No Information Assessments Type Assessment Date No Information Patient Care Teams Name Effective Dates (start - stop) Status Members No Information
--- OUTSIDE RECORDS SUMMARY | 2024-09-25 12:09 | XMS_ITS | Referral Summary ---
Author Organization [facility] Address [address] [place] [id number] Care Team Providers Care Mud Plant Operator Name Role Phone Molly Figueroa MD Primary Care Provider Reena Solitario DIVEMASTER Unavailable [phone] Leana Luna DIVEMASTER Unavailable [phone] Allergies Active Allergy Reactions Criticality Noted [...] major depressive d isorder 10/26/2022 Sedative dependence (CMS/[facility]) 10/26/2022 Primary insomnia 10/26/2022 Sacroiliitis 10/20/2022 Lumbar post-laminectomy syndrome 10/02/2022 Lumbar radiculitis 10/02/2022 Prediabetes 08/29/2022 Overview (08/29/2022): unclear if controlled Dm or true Pre-DM. get records. continue ozempic for now. 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 H[facility]/PPO Address: [facility] [id number] [place] [phone] [facility] HMO/PPO Address: [address] [address] [place] [address] R [facility]PP[facility] Address: [address] [address] [place] [address] Advance Directives For more information, please contact: [phone] * Full Code (Latest Code Status on File) Date Activated Date Inactivated Comments 08/17/2021 9:30 AM 08/18/2021 4:36 AM Care Teams Mud Plant Operator Relationship Specialty Start Date End Date Molly Figueroa MD PCP - General Family Practice 08/29/22 Reena Solitario NP [address] [place] [address] Nurse Practitioner Psychiatry 10/26/22 Leana Luna NP [address] [place] [address] Nurse Practitioner Family Practice 03/11/23
--- OUTSIDE RECORDS SUMMARY | 2024-09-25 12:09 | XMS_ITS | Continuity of Care Document ---
Author Organization [id number] - [facility] Address [address] [place] [address] Phone Care Team Providers Care Apartment Community Manager Name Role Phone Surendra Killian MD Unavailable Unavailable Procedures Procedure Date OFFICE/OUTPT EM EST EXP PROB FOCUS/LOW 1 5 MINS UPPER GI ENDO DX W/WO COLLECTION SPECIME N OFFICE/OUTPT EM EST EXP PROB FOCUS/LOW 1 5 MINS POSTOP FOLLOW-UP VISIT POSTOP FOLLOW-UP VISIT POSTOP FOLLOW-UP VISIT LAPAROSCOPIC CHOLECYSTECTOMY OFFICE/OUTPATIENT VISIT, NEW Advance Directives Directive Yes / No Effective Date File Name No Information Encounters Encounter Description Practice Location Reason(s) For Visit Diagnoses Date Provider Providers Copied on Encounter OFFICE/OUTPT EM EST EXP PROB FOCUS/LOW 15 MINS [id number] - [facility], [address], [place], [address], [place] tel:[phone] [facility] No Information Constantin Agosto. [facility], [address], [place], [place], [id number]. tel:[phone] Referring Provider: Surendra Lyon, [facility] [address], [place], [address] . tel:[phone] [id number] - [facility], [address], [place], [address], [place] tel:[phone] [facility] No Information Constantin Agosto. [facility], [address], [place], [place], [id number]. tel:[phone] Referring Provider: Surendra Lyon, [facility] [address] [facility] [address], [place], [address] . tel:[phone] OFFICE/OUTPT EM EST EXP PROB FOCUS/LOW 15 MINS [id number] - [facility],[employer], [address], [place], [address], [place] tel:[phone] [facility] No Information Constantin Agosto. [facility], [address], [place], [place], [id number]. tel:[phone] Referring Provider: Surendra Lyon, [facility] [address] [facility] [address], [place], [address] . tel:[phone] [id number] - [facility] [employer], [address], [place], [address], [place] tel:[phone] [facility] No Information Constantin Agosto. [facility], [address], [place], [place], [id number]. tel:[phone] Referring Provider: Surendra Lyon, [facility] [address], [place], [address] . tel:[phone] [id number] - [facility] [employer], [address], [place], [address], [place] tel:[phone] [facility] No Information Constantin Agosto. [facility], [address], [place], [place], [id number]. tel:[phone] Referring Provider: Surendra Lyon, [facility] [address], [place], [address] . tel:[phone] [id number] - [facility], [address] [facility] [address], [place], [address], [place] tel:[phone] PMS [facility] No Information Constantin Surendra. [facility], [address], [place], [place], [id number]. tel:[phone] Referring Provider: Surendra Lyon, [facility] [address], [place], [address] . tel:[phone] [id number] - [facility],[employer], [address] [facility] [address], [place], [address], [place] tel:[phone] [facility] No Information Constantin Surendra. [facility], [address], [place], [place], [id number]. tel:[phone] Referring Provider: Surendra Lyon, [facility] [address], [place], [address] . tel:[phone] OFFICE/OUTPAT IENT VISIT, NEW [id number] - [facility],[employer], [address] [facility] [address], [place], [address], [place] tel:[phone] PMS [facility] No Information Constantin Surendra. [facility], [address], [place], [place], [id number]. tel:[phone] Referring Provider: Surendra Lyon, [facility] [address], [place], [address] . tel:[phone] Family History Family Member Type Diagnosis Age At Onset No Information Payers Payer name Insurance type Covered libertarian ID Brenda fernandes(s) [facility] CI [id number] Social History Type Description Quantity Date Captured [...]
--- OUTSIDE RECORDS SUMMARY | 2024-09-25 12:09 | XMS_ITS | Encounter Summary ---
Author Organization [facility] Address [address] [place] [address] Phone Care Team Providers Care Fitter Helper Name Role Phone Javi Meeks MD Primary Care Provider [phone] Jose Panda MD Primary Care Provider [phone] Unknown, Notinfile Primary Care Provider Unavail able Molly Figueroa MD Primary Care Provider Reena Solitario CHURCH SUPERVISOR Unavailable [phone] Leana Luna CHURCH SUPERVISOR Unavailable [phone] Encounter Details Date Type Department Care Team (Late st Contact Info) Description 03/26/2022 Telephone [facility] [address] [place] [address] Jassi Rene MD [address] [facility] [address] [place], [place] [id number] Social History Tobacco Use Types Packs/Day Years Used Date Smoking Tobacco: Never Smokeless Tobacco: Never Alcohol Use Standard Drinks/Week Comments Never 0 (1 standard drink = 0.6 oz pur e alcohol) Comments No Sex and Gender Information Value Date Recorded Sex Assigned at Not on file Legal Sex Female 1:19 PM [employer] Gender Identity Not on file Sexual Orientation Not on file documented as of this encounter Plan of Treatment Not on file documented as of this encounter Visit Diagnoses Not on filedocumented in this encounter Care Teams Fitter Helper Relationship Specialty Start Date End Date Javi Meeks MD [address] [place], [place] [id number] PCP - General 10/15/16 06/03/22 Jose Panda MD [address] [place] [address] PCP - General Family Medicine 06/04/22 07/10/22 Unknown, Notinfile PCP - General 07/11/22 08/28/22 Molly Figueroa MD PCP - General Family Practice 08/29/22 Reena Solitario NP [address] [facility] [address] [place] [address] Nurse Practitioner Psychiatry 10/26/22 Leana Luna NP [address] [place] [address] Nurse Practitioner Family Practice 03/11/23 documented as of this encounter
--- OUTSIDE RECORDS SUMMARY | 2024-09-25 12:09 | XMS_ITS | Referral Summary ---
Author Organization [facility] Address [address] [place] [address] Care Team Providers Care Gas Plant Worker Name Role Phone Javi Meeks MD Primary Care Provider [phone] Source Comments [facility],non-owned Affiliates and Associated Physician Practices is amultiple site organization consisting of ambulatory clinics and hospital sitesin [place], [place], [place] and [place]. This disclosure is being madepursuant to the Care Everywhere program and may not contain all information available regarding this patient. 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 [id number] spots 08/29/2015 Fibromyalgia 05/18/2015 Social History Tobacco Use Types Packs/Day Years Used Date Smoking Tobacco: Never Smokeless Tobacco: Never Alcohol Use Standard Drinks/Week Comments No 0 (1 standard drink = 0.6 oz pur e alcohol) Sex and Gender Information Value Date Recorded Sex Assigned at Not on file Gender Identity Not on file Sexual Orientation Not on file Last Filed Vital Signs Vital Sign Reading Time Taken Comments Blood Pressure 136/72 06/22/2015 8:42 AM LOCK TENDER Pulse 74 06/22/2015 8:42 AM LOCK TENDER Temperature 36.2 C (97.1 F) 06/22/2015 8:42 AM LOCK TENDER Respiratory Rate - - Oxygen Saturation 98% 06/22/2015 8:42 AM LOCK TENDER Inhaled Oxygen Concentration - - Weight 91.5 kg (201 lb 12.8 oz) 06/22/2015 8:42 AM LOCK TENDER Height 162.6 cm (5' 4 ) 06/22/2015 8:42 AM LOCK TENDER Body Mass Index 34.64 06/22/2015 8:42 AM LOCK TENDER Plan of Treatment Not on file Procedures Procedure Name Priority Date/Time Associated Diagnosis Comments HEPATITIS C ANTIBODY Routine 05/18/2015 1:36 PM CDT from Last 3 Months or Most Recently Relevant to Health Maintenance Results * HEPATITIS C ANTIBODY (05/18/2015 1:36 PM CDT) Hepatitis C Virus Antibody <0.1 0.0 - 0.9 s/co ratio [facility] Comment: Negative: < 0.8 Indeterminate: 0.8 - 0.9 Positive: > 0.9 In order to reduce the incidence of a false positive result, the CDC recommends that all s/co ratios between 1.0 and 10.9 be confirmed by a more specific supplemental or PCR testing. [facility] offers HCV Ab w/Reflex to Verification test #[id number]. Blood specimen (specimen) BLOOD SPECIMEN / Unknown 05/18/2015 1:36 PM CDT 05/18/2015 4:06 PM CDT Narrative [facility]) - 05/20/2015 7:18 AM CDT Performed at: [address] [place] [id number] Snowboard Instructor: Santiago Jaime PhD, Phone: [phone] Gayla Abreu MD LAB - CHEM ISTRY ORDERABLES [facility]IS [facility]) from Last 3 Months or Most Recently Relevant to Health Maintenance Care Teams Gas Plant Worker Relationship Specialty Start Date End Date Javi Meeks MD [address] [place] [id number] PCP - General 05/16/18
--- OUTSIDE RECORDS SUMMARY | 2024-09-25 12:09 | XMS_ITS | Patient Health Summary ---
Author Organization [facility] Address [address] [address] Care Team Providers Care Head Sawyer Name Role Phone Javi Meeks MD Primary Care Provider [phone] Note from [facility],non-owned Affiliates and Associated Physician Practices is amultiple site organization consisting of ambulatory clinics and hospital sitesin [place], [place], [place] and [place]. This disclosure is being madepursuant to the Care Everywhere program and may not contain all information available regarding this patient. 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 Bexg-gt-ofsi spots 08/29/2015 Fibromyalgia 05/18/2015 Social History Tobacco [...] Comments Blood Pressure 136/72 06/22/2015 8:42 AM AUTO BODY REPAIR TECHNICIAN Pulse 74 06/22/2015 8:42 AM AUTO BODY REPAIR TECHNICIAN Temperature 36.2 C (97.1 F) 06/22/2015 8:42 AM AUTO BODY REPAIR TECHNICIAN Respiratory Rate - - Oxygen Saturation 98% 06/22/2015 8:42 AM AUTO BODY REPAIR TECHNICIAN Inhaled Oxygen Concentration - - Weight 91.5 kg (201 lb 12.8 oz) 06/22/2015 8:42 AM AUTO BODY REPAIR TECHNICIAN Height 162.6 cm (5' 4 ) 06/22/2015 8:42 AM AUTO BODY REPAIR TECHNICIAN Body Mass Index 34.64 06/22/2015 8:42 AM AUTO BODY REPAIR TECHNICIAN Procedures * XR PELVIS W BILAT HIP 2VW(Performed 09/03/2023) Performed for Ankylosing spondylitis of multiple sites in spine (HCC) * CYCLIC CITRULLINATED PEPTIDE(CCP) AB IGG(Performed 05/18/2015) * RHEUMATOID FACTOR BLOOD QUANTITATIVE(Performed 05/18/2015) * CHEMICAL LABORATORY CHIEF ANTIBODY(Performed 05/18/2015) * MATOS (SM) ANTIBODY RAYSHAWN(Performed 05/18/2015) * SS-A/SS-B (SJOGREN'S) ANTIBODY PANEL(Performed 05/18/2015) * DNA ANTIBODY DOUBLE STRANDED(Performed 05/18/2015) * LOPEZ BLOOD SCREEN W/REFLEX TITER(Performed 05/18/2015) * ERYTHROCYTE SEDIMENTATION RATE(Performed 05/18/2015) * C-REACTIVE PROTEIN(Performed 05/18/2015) * CK BLOOD(Performed 05/18/2015) * ALDOLASE(Performed 05/18/2015) * HEPATITIS C ANTIBODY(Performed 05/18/2015) * HEPATITIS B SURFACE ANTIGEN W RFLX CONFIRMATION(Performed 05/18/2015) * HEPATITIS B CORE ANTIBODY TOTAL(Performed 05/18/2015) * VITAMIN D 25-HYDROXY(Performed 05/18/2015) * TSH(Performed 05/18/2015) * URINALYSIS W/MICROSCOPIC NO CULTURE(Performed 05/18/2015) * COMPREHENSIVE METABOLIC PANEL(Performed 05/18/2015) * CBC W AUTO DIFFERENTIAL(Performed 05/18/2015) * URINALYSIS MICROSCOPIC ONLY REFLEXED(Performed 05/18/2015) Results * XR HIPS BILATERAL 2 VW W AP PELVIS (09/03/2023 9:19 AM AUTO BODY REPAIR TECHNICIAN) Anatomical Region Laterality Modality Pelvis, Lower Extremity [facility] 09/03/2023 9:35 AM AUTO BODY REPAIR TECHNICIAN Impressions 09/03/2023 9:38 AM AUTO BODY REPAIR TECHNICIAN IMPRESSION: 1. No acute fracture or osseous abnormality. 2. Postoperative changes in the lower lumbar spine. > Interpreting Provider: Cynthia Shin MD on 09/03/2023 9:38 AM Narrative 09/03/2023 9:38 AM AUTO BODY REPAIR TECHNICIAN PROCEDURE: XR PELVIS W BILAT HIP 2VW DATE/TIME OF EXAM: 09/03/2023 9:19 AM CLINICAL INFORMATION: None relevant/not provided if blank. Indication: M45.0: Ankylosing spondylitis of multiple sites in spine ([facility]) Additional History: COMPARISON: None. TECHNIQUE: AP and lateral views of both hips were obtained along with AP view of the pelvis. FINDINGS: Postoperative changes and spinal rods are seen in the lower lumbar spine. No acute fracture or dislocation is seen in either hip. No acute fractures noted in the pelvis. Joint spaces are maintained. Procedure Note Cynthia Shin MD - 09/03/2023 PROCEDURE: XR PELVIS W BILAT HIP 2VW DATE/TIME OF EXAM: 09/03/2023 9:19 AM CLINICAL INFORMATION: None relevant/not provided if blank. Indication: M45.0: Ankylosing spondylitis of multiple sites in spine ([facility]) Additional History: COMPARISON: None. TECHNIQUE: AP and lateral views of both hips were obtained along with AP view ofthe pelvis. FINDINGS: Postoperative changes and spinal rods are seen in the lower lumbarspine. No acute fracture or dislocation is seen in either hip. No acutefractures noted in the pelvis. Joint spaces are maintained. IMPRESSION: 1. No acute fracture or osseous abnormality. 2. Postoperative changes in the lower lumbar spine. > Interpreting Provider: Cynthia Shin MD on 09/03/2023 9:38 AM Emory Roth MD DIAGNOSTIC IMAGING O RDERABLES * URINALYSIS MICROSCOPIC ONLY REFLEXED (05/18/2015 1:36 PM CDT) WBC, UA 0-5 0 - 5 /hpf [facility] (BEAKER) RBC UA None seen 0 - 2 /hpf [facility] (BEAKER) Epithelial Cells (non renal) None seen 0 - 10 /hpf [facility] (BEAKER) Bacteria UA None seen None seen/Few [facility] (BEAKER) 05/18/2015 1:36 PM CDT 05/18/2015 4:06 PM CDT Narrative [facility] (BEAKER) - 05/20/2015 7:18 AM CDT Performed at: 01 - [address] [id number] Tie Presser: Santiago Jaime PhD, Phone: [phone] Gayla Abreu MD LAB - URIN ALYSIS ORDERABLES [facility] (BEAKER) * (ABNORMAL) URINALYSIS W/MICROSCOPIC NO CULTURE (05/18/2015 1:36 PM CDT) Specific [place]nam <=1.005(A) 1.005 - 1.030 [facility] (BEAKER) pH Urine 6.5 5.0 - 7.5 [facility] ([facility]) Color UA Yellow Yellow [facility] (BEAK[facility]) Appearance Clear Clear [facility] (BE[facility]) Leukocyte Esterase Negative Negative [facility] (BEAK[facility]) Protein UA Negative Negative/Tra ce [facility] (BEAKER) Glucose UA Negative Negative [facility] (BEAK[facility]) Ketone UA Negative Negative [facility] (BEAK[facility]) Occult Blood Negative Negative [facility] (BEAKER) Bilirubin Negative Negative [facility] ([facility]) Urobilinogen Semi-Qn 0.2 0.0 - 1.9 mg/dL [facility] (BEAKER) Comment: Effective May 23, 2015 the reference interval for Urobiliogen,Semi-Qn will be changing to: 0.2 - 1.0 Nitrite UA Negative Negative [facility] (BEAKER) Microscopic Examination [facility] (BEAKER) Comment:Microscopic follows if indicated. Microscopic Examination See below: [facility] (BEAKER) Comment:Microscopic was bdudy cated and was performed. Urine specimen (specimen) URINE SPECIMEN OBTAINED BY CLEAN CATCH PROCEDURE / Unknown 05/18/2015 1:36 PM CDT 05/18/2015 4:06 PM CDT Narrative [facility] (BEAKER) - 05/20/2015 7:18 AM CDT Performed at: - Lab[address] [id number] Tie Presser: Santiago Jaime PhD, Phone: [phone] Gayla Abreu MD LAB - URIN ALYSIS ORDERABLES Performing Organization Address City/[facility]/ZIP Co de Phone Number [facility]) * MATOS (SM) ANTIBODY RAYSHAWN (05/18/2015 1:36 PM CDT) Matos Antibody <0.2 0.0 - 0.9 AI [facility] ([facility]) Blood specimen (specimen) BLOOD SPECIMEN / Unknown 05/18/2015 1:36 PM CDT 05/18/2015 4:06 PM CDT Narrative [facility]) - 05/20/2015 7:18 AM CDT Performed at: [address] [place] [address] [id number] Tie Presser: Santiago Jaime PhD, Phone: [phone] Gayla Abreu MD LAB - CHEM ISTRY ORDERABLES Performing Organization Address [facility] Co de Phone Number [facility] ([facility]) * CHEMICAL LABORATORY CHIEF ANTIBODY (05/18/2015 1:36 PM CDT) CHEMICAL LABORATORY CHIEF Antibody <0.2 0.0 - 0.9 [facility]) Blood specimen (specimen) BLOOD SPECIMEN / Unknown 05/18/2015 1:36 PM CDT 05/18/2015 4:06 PM CDT Narrative [facility]) - 05/20/2015 7:18 AM CDT Performed at: [address] [place] [address] [id number] Tie Presser: Santiago Jaime PhD, Phone: [phone] Gayla Abreu MD LAB - CHEM ISTRY ORDERABLES Performing Organization Address City/[facility]/ZIP Co de Phone Number [facility]) * RHEUMATOID FACTOR BLOOD QUANTITATIVE (05/18/2015 1:36 PM CDT) Pathologist [facility] RA latex Turbidimetry 7.1 0.0 - 13.9 IU/mL [facility] ([facility]) Blood specimen (specimen) BLOOD SPECIMEN / Unknown 05/18/2015 1:36 PM CDT 05/18/2015 4:06 PM CDT Narrative [facility] ([facility]) - 05/20/2015 7:18 AM CDT Performed at: [address] [place] [id number] Tie Presser: Santiago Jaime PhD, Phone: [phone] Gayla Abreu MD LAB - CHEM ISTRY ORDERABLES Performing Organization Address [facility]/ZIP Co de Phone Number [facility]) * C-REACTIVE PROTEIN (05/18/2015 1:36 PM CDT) Pathologist [facility] C-Reactive Protein <0.3 0.0 - 4.9 mg/L [facility]) Blood specimen (specimen) BLOOD SPECIMEN / Unknown 05/18/2015 1:36 PM CDT 05/18/2015 4:06 PM CDT Narrative [facility]) - 05/20/2015 7:18 AM CDT Performed at: [address] [place] [address] [id number] Tie Presser: Santiago Jaime PhD, Phone: [phone] Gayla Abreu MD LAB - CHEM ISTRY ORDERABLES [facility] ([facility]) * LOPEZ BLOOD SCREEN W/REFLEX TITER (05/18/2015 1:36 PM CDT) Pathologist [facility] LOPEZ IFA Negative [facility] ([facility]) Comment: Negative <1:80 Borderline 1:80 Positive >1:80 Blood specimen (specimen) BLOOD SPECIMEN / Unknown 05/18/2015 1:36 PM CDT 05/18/2015 4:06 PM CDT Narrative [facility] (BEAKER) - 05/20/2015 7:18 AM CDT Performed at: [address] [place] [address] [id number] Tie Presser: Santiago Jaime PhD, Phone: [phone] Gayla Abreu MD LAB - CHEM ISTRY ORDERABLES Performing Organization Address [facility] de Phone Number [facility] ([facility]) * SS-A/SS-B (SJOGRENS) ANTIBODY PANEL (05/18/2015 1:36 PM CDT) Sjogren's Antibodies (SSA) <0.2 0.0 - 0.9 AI [facility] ([facility]) Sjogren's Antibodies (SSB) <0.2 0.0 - 0.9 AI [facility] ([facility]) 05/18/2015 1:36 PM CDT 05/18/2015 4:06 PM CDT Narrative [facility] ([facility]) - 05/20/2015 7:18 AM CDT Performed at: [address] [place] [address] [id number] Tie Presser: Santiago Jaime PhD, Phone: [phone] Gayla Abreu MD LAB - CHEM ISTRY ORDERABLES Performing Organization Address [facility] de Phone Number [facility] ([facility]) * DNA ANTIBODY DOUBLE STRANDED (05/18/2015 1:36 PM CDT) dsDNA Antibody <1 0 - 9 IU/mL [facility] ([facility]) Comment: Negative <5 Equivocal 5 - 9 Positive >9 Blood specimen (specimen) BLOOD SPECIMEN / Unknown 05/18/2015 1:36 PM CDT 05/18/2015 4:06 PM CDT Narrative [facility] ([facility]) - 05/20/2015 7:18 AM CDT Performed at: 01 - [address] [id number] Tie Presser: Santiago Jaime PhD, Phone: [phone] Gayla Abreu MD LAB - BRIAN TOLOGY ORDERABLES Performing Organization Address [facility] Co de Phone Number [facility] ([facility]) * VITAMIN D 25-HYDROXY (05/18/2015 1:36 PM CDT) Vitamin D, 25 Hydroxy 31.8 30.0 - 100.0 ng/mL [facility]) Comment: Vitamin D deficiency has been defined by the Alexander of Medicine and an Endocrine Society practice guideline as a level of serum 25-OH vitamin D less than 20 ng/mL (1,2). The Endocrine Society went on to further define vitamin D insufficiency as a level between 21 and 29 ng/mL (2). 1. IOM (Alexander of Medicine). 2010. Dietary reference intakes for calcium and D. [place]: The National Academies Press. 2. Alesia MF, Surjit NC, Darren JUNG, et al. Evaluation, treatment, and prevention of vitamin D deficiency: an Endocrine Society clinical practice guideline. JCEM. 2010; 96(7):1911-30. Blood specimen (specimen) BLOOD SPECIMEN / Unknown 05/18/2015 1:36 PM CDT 05/18/2015 4:06 PM CDT Narrative [facility]) - 05/20/2015 7:18 AM CDT Performed at: [address] [place] [address] [id number] Tie Presser: Santiago Jaime PhD, Phone: [phone] Gayla Abreu MD LAB - CHEM ISTRY ORDERABLES Performing Organization Address City/[facility]/ZIP Co de Phone Number [facility]) * ALDOLASE (05/18/2015 1:36 PM CDT) Aldolase 5.0 3.3 - 10.3 U/L [facility]) Blood specimen (specimen) BLOOD SPECIMEN / Unknown 05/18/2015 1:36 PM CDT 05/18/2015 4:06 PM CDT Narrative [facility]) - 05/20/2015 7:18 AM CDT Performed at: [address] [id number] Tie Presser: Santiago Jaime PhD, Phone: [phone] Gayla Abreu MD LAB - CHEM ISTRY ORDERABLES [facility] ([facility]) * CYCLIC CITRUL PEPTIDE AB IGG (CCP) (05/18/2015 1:36 PM CDT) Cyclic Citrullinated Peptide Antibody 2 0 - 19 units [facility] ([facility]) Comment: Negative <20 Weak positive 20 - 39 Moderate positive 40 - 59 Strong positive >59 Blood specimen (specimen) BLOOD SPECIMEN / Unknown 05/18/2015 1:36 PM CDT 05/18/2015 4:06 PM CDT Narrative [facility] ([facility]) - 05/20/2015 7:18 AM CDT Performed at: [address] [place] [id number] Tie Presser: Kevin Harris MD, Phone: [phone] Gayla Abreu MD LAB - CHEM ISTRY ORDERABLES Performing Organization Address City/[facility]/ZIP Co de Phone Number [facility] ([facility]) * ERYTHROCYTE SEDIMENTATION RATE (05/18/2015 1:36 PM CDT) Erythrocyte Sedimentation Rate Westergren 2 0 - 40 mm/hr [facility]) Blood specimen (specimen) BLOOD SPECIMEN / Unknown 05/18/2015 1:36 PM CDT 05/18/2015 4:06 PM CDT Narrative [facility] ([facility]) - 05/20/2015 7:18 AM CDT Performed at: [address], [place] [id number] Tie Presser: Santiago Jaime PhD, Phone: [phone] Gayla Abreu MD LAB - BRIAN TOLOGY ORDERABLES [facility] (BEAKER) * CBC W AUTO DIFFERENTIAL (05/18/2015 1:36 PM CDT) WBC 5.7 3.4 - 10.8 x10E3/uL [facility] (BEAK[facility]) RBC 4.08 3.77 - 5.28 x10E6/uL [facility] ([facility]) Hemoglobin 12.3 11.1 - 15.9 g/dL [facility] ([facility]) Hematocrit 37.0 34.0 - 46.6 % [facility] (BEAK[facility]) MCV 91 79 - 97 fL [facility] ([facility]) MCH 30.1 26.6 - 33.0 pg [facility] (BEAKER) MCHC 33.2 31.5 - 35.7 g/dL [facility] (BEAK[facility]) RDW-CV 14.0 12.3 - 15.4 % [facility] (BEAKER) Platelet 237 150 - 379 x10E3/uL [facility] ([facility]) Neutrophils % 63 % [facility] ([facility]) Lymphocytes % 29 % [facility] ([facility]) Monocytes % 4 % [facility] ([facility]) Eosinophils % 3 % [facility] ([facility]) Basophil % 1 % [facility] ([facility]) Neutrophils Absolute 3.7 1.4 - 7.0 x10E3/uL [facility] ([facility]) Lymphocyte Absolute Manual 1.6 0.7 - 3.1 x10E3/uL [facility] (BEAKER) Monocytes Absolute 0.2 0.1 - 0.9 x10E3/uL [facility] ([facility]) Eosinophils Absolute Manual 0.1 0.0 - 0.4 x10E3/uL [facility] (BEAKER) Basophil Absolute Manual 0.0 0.0 - 0.2 x10E3/uL [facility] ([facility]) Immature Granulocytes % 0 % [facility] (BE[facility]ER) Immature Granulocytes absolute 0.0 0.0 - 0.1 x10E3/uL [facility] ([facility]ER) Blood specimen (specimen) BLOOD SPECIMEN / Unknown 05/18/2015 1:36 PM CDT 05/18/2015 4:06 PM CDT Narrative [facility] ([facility]) - 05/20/2015 7:18 AM CDT Performed at: [address] [id number] Tie Presser: Santiago Jaime PhD, Phone: [phone] Gayla Abreu MD LAB - BRIAN TOLOGY ORDERABLES [facility] ([facility]) * (ABNORMAL) COMPREHENSIVE METABOLIC PANEL (05/18/2015 1:36 PM CDT) Glucose 72 65 - 99 mg/dL [facility] (BEAKER) BUN 8 6 - 24 mg/dL [facility] (BEAKER) Creatinine 0.75 0.57 - 1.00 mg/dL [facility] (BEAKER) eGFR non- 91 >59 mL/min/1.7 3 [facility] (BEAKER) eGFR 105 >59 mL/min/1.7 3 [facility] (BEAKER) BUN/Creatinine Ratio 11 9 - 23 [facility] ([facility]AKER) Sodium 141 134 - 144 mmol/L [facility] (BEAKER) Potassium 4.6 3.5 - 5.2 mmol/L [facility] (BEAKER) Chloride 101 97 - 108 mmol/L [facility] (BEAKER) CO2 26 18 - 29 mmol/L [facility] (BEAKER) Calcium 9.4 8.7 - 10.2 mg/dL [facility] (BEAKER) Protein Total 6.3 6.0 - 8.5 g/dL [facility] ([facility]) Albumin 4.1 3.5 - 5.5 g/dL [facility] ([facility]ER) Globulin Total 2.2 1.5 - 4.5 g/dL [facility] (BE[facility]ER) Albumin/Globulin Ratio 1.9 1.1 - 2.5 [facility] ([facility]) Bilirubin Total 0.3 0.0 - 1.2 mg/dL [facility] ([facility]AK[facility]) Alkaline Phosphatase 74 39 - 117 IU/L [facility] (BEAKER) AST 64(H) 0 - 40 IU/L [facility] ([facility]) ALT 61(H) 0 - 32 IU/L [facility] (BEAKER) Blood specimen (specimen) BLOOD SPECIMEN / Unknown 05/18/2015 1:36 PM CDT 05/18/2015 4:06 PM CDT Narrative [facility] ([facility]) - 05/20/2015 7:18 AM CDT Performed at: [address] [place] [address] [id number] Tie Presser: Santiago Jaime PhD, Phone: [phone] Gayla Abreu MD LAB - CHEM ISTRY ORDERABLES Performing Organization Address City/[facility] Co de Phone Number [facility] ([facility]) * HEPATITIS B CORE ANTIBODY (05/18/2015 1:36 PM CDT) Hepatitis B Core Virus Antibody Total Negative Negative [facility] ([facility]) Blood specimen (specimen) BLOOD SPECIMEN / Unknown 05/18/2015 1:36 PM CDT 05/18/2015 4:06 PM CDT Narrative [facility] ([facility]) - 05/20/2015 7:18 AM CDT Performed at: [address] [place] [address] [id number] Tie Presser: Santiago Jaime PhD, Phone: [phone] Gayla Abreu MD LAB - CHEM ISTRY ORDERABLES Performing Organization Address City/[facility]/ZIP Co de Phone Number [facility]) * HEPATITIS B SURFACE ANTIGEN W RFLX CONFIRMATION (05/18/2015 1:36 PM CDT) Pathologist [facility] Hepatitis B Virus Surface Antigen Screen Negative Negative [facility] ([facility]) Blood specimen (specimen) BLOOD SPECIMEN / Unknown 05/18/2015 1:36 PM CDT 05/18/2015 4:06 PM CDT Narrative [facility] ([place]) - 05/20/2015 7:18 AM CDT Performed at: [address] [place] [address] [id number] Tie Presser: Santiago Jaime PhD, Phone: [phone] Gayla Abreu MD LAB - CHEM ISTRY ORDERABLES Performing Organization Address [facility] de Phone Number [facility] ([facility]) * CK BLOOD (05/18/2015 1:36 PM CDT) Pathologist [facility] CK Total 67 24 - 173 U/L [facility] ([place]) Blood specimen (specimen) BLOOD SPECIMEN / Unknown 05/18/2015 1:36 PM CDT 05/18/2015 4:06 PM CDT Narrative [facility] ([place]) - 05/20/2015 7:18 AM CDT Performed at: [address] [place] [address] [id number] Tie Presser: Santiago Jaime PhD, Phone: [phone] Gayla Abreu MD LAB - CHEM ISTRY ORDERABLES Performing Organization Address City/[facility] Co de Phone Number [facility] ([place]) * TSH (05/18/2015 1:36 PM CDT) Pathologist [facility] TSH 1.180 0.450 - 4.500 uIU/mL [facility] ([facility]) Blood specimen (specimen) BLOOD SPECIMEN / Unknown 05/18/2015 1:36 PM CDT 05/18/2015 4:06 PM CDT Narrative [facility] ([place]) - 05/20/2015 7:18 AM CDT Performed at: [address] [id number] Tie Presser: Santiago Jaime PhD, Phone: [phone] Gayla Abreu MD LAB - CHEM ISTRY ORDERABLES Performing Organization Address [facility] de Phone Number [facility] * HEPATITIS C ANTIBODY (05/18/2015 1:36 PM CDT) Hepatitis C Virus Antibody <0.1 0.0 - 0.9 s/co ratio [facility] ([facility]) Comment: Negative: < 0.8 Indeterminate: 0.8 - 0.9 Positive: > 0.9 In order to reduce the incidence of a false positive result, the CDC recommends that all s/co ratios between 1.0 and 10.9 be confirmed by a more specific supplemental or PCR testing. [facility] offers HCV Ab w/Reflex to Verification test #[id number]. Blood specimen (specimen) BLOOD SPECIMEN / Unknown 05/18/2015 1:36 PM CDT 05/18/2015 4:06 PM CDT Narrative [facility]) - 05/20/2015 7:18 AM CDT Performed at: [address] [place] [address] [id number] Tie Presser: Santiago Jaime PhD, Phone: [phone] Gayla Abreu MD LAB - CHEM ISTRY ORDERABLES Performing Organization Address City/[facility]/ZIP Co de Phone Number [facility] Care Teams Head Sawyer Relationship Specialty Start Date End Date Javi Meeks MD [address] [place] [address] PCP - General 05/16/18
--- OUTSIDE RECORDS SUMMARY | 2024-09-25 12:09 | XMS_ITS | Clinical Summary ---
Author Organization [facility] Address [address] [place] [address] Care Team Providers Care Merchandise Clerk Name Role Phone Javi Meeks MD Primary Care Provider [phone] Source Comments [facility],non-owned Affiliates and Associated Physician Practices is amultiple site organization consisting of ambulatory clinics and hospital sitesin [place], [place], [place] and [place]. This disclosure is being madepursuant to the Care Everywhere program and may not contain all information available regarding this patient. Last updated 18.[facility] Active Problems Problem Noted Date Diagnosed Date Epidermal cyst 08/29/2015 Melanocytic nevus 08/29/2015 Other melanin hyperpigmentation 08/29/2015 Personal history of other malignant neoplasm of skin 08/29/2015 Other specified follicular disorders 08/29/2015 Lzjn-vs-ukuq spots 08/29/2015 Fibromyalgia 05/18/2015 Family History Medical History Relation Name Comments Depression Brother Status: Alive Diabetes Brother Status: Alive Thyroid Disease Brother Status: Aliv e Diabetes Father Status: d Arthritis - Osteo Mother Status: Al mike Cancer - Skin, Melanoma Neg Hx Cancer - Skin, Non Melanoma Neg Hx Relation Name Status Comments Brother Father Mother Social History Tobacco Use Types Packs/Day Years [...] Comments Blood Pressure 136/72 06/22/2015 8:42 AM TOOL OR DIE DRAWING CHECKER Pulse 74 06/22/2015 8:42 AM TOOL OR DIE DRAWING CHECKER Temperature 36.2 C (97.1 F) 06/22/2015 8:42 AM TOOL OR DIE DRAWING CHECKER Respiratory Rate - - Oxygen Saturation 98% 06/22/2015 8:42 AM TOOL OR DIE DRAWING CHECKER Inhaled Oxygen Concentration - - Weight 91.5 kg (201 lb 12.8 oz) 06/22/2015 8:42 AM TOOL OR DIE DRAWING CHECKER Height 162.6 cm (5' 4 ) 06/22/2015 8:42 AM TOOL OR DIE DRAWING CHECKER Body Mass Index 34.64 06/22/2015 8:42 AM TOOL OR DIE DRAWING CHECKER Plan of Treatment Health Maintenance Due Date Last Done Comments COLOGUARD (AGES 45-75) - COLON CA SCREENING 1961 COLON MONITORING 1961 COLONOSCOPY - COLON CA SCREENING 1961 CT COLONOGRAPHY - COLON CA SCREENING 1961 Colorectal Cancer Screening 1961 FIT - COLON CA SCREENING 1961 FLEX SIG - COLON CA SCREENING 1961 LIPID TESTING 1961 MAMMOGRAM 1961 PAP SMEAR 1961 HIV SCREENING 1976 DTAP/TDAP/TD VACCINES (1 - Tdap) 1980 PNEUMOCOCCAL VACCINE 50+ (1 of 1 - PCV) 11/27/2011 ZOSTER VACCINE (1 of 2) 11/27/2011 COVID-19 VACCINE (4 - season) 2024 07/27/2021, 10/27/2020, 10/06/2020 INFLUENZA VACCINE (#1) 2024 , 07/03/2019, 04/15/2018, Additional history exists DEPRESSION SCREENING 08/05/2024 Respiratory Syncytial Virus (RSV) Vaccine Pt: or over 60 yrs (1 - 1-dose 75+ series) 2036 HEPATITIS C SCREENING Completed 05/18/2015 HEPATITIS B VACCINE Aged Out No longe r eligible based on patient's age to complete this topic HIB VACCINE Aged Out No longer eligi ble based on patient's age to complete this topic HPV VACCINE Aged Out No longer eligi ble based on patient's age to complete this topic MENINGOCOCCAL (Group B) VACCINE Aged Out No longer eligible based on patient's age to complete this topic MENINGOCOCCAL VACCINE Aged Out No jean gaetano eligible based on patient's age to complete this topic PNEUMOCOCCAL VACCINE Aged Out No long er eligible based on patient's age to complete this topic Procedures Procedure Name Priority Date/Time Associated Diagnosis Comments HEPATITIS C ANTIBODY Routine 05/18/2015 1:36 PM CDT from Last 3 Months or Most Recently Relevant to Health Maintenance Results * HEPATITIS C ANTIBODY (05/18/2015 1:36 PM CDT) Hepatitis C Virus Antibody <0.1 0.0 - 0.9 s/co ratio [facility] Comment: Negative: < 0.8 Indeterminate: 0.8 - 0.9 Positive: > 0.9 In order to reduce the incidence of a false positive result, the CDC recommends that all s/co ratios between 1.0 and 10.9 be confirmed by a more specific supplemental or PCR testing. [facility] offers HCV Ab w/Reflex to Verification test #[id number]. Blood specimen (specimen) BLOOD SPECIMEN / Unknown 05/18/2015 1:36 PM CDT 05/18/2015 4:06 PM CDT Narrative [facility] ([place]) - 05/20/2015 7:18 AM CDT Performed at: [address] [id number] Slot Operations Manager: Santiago Jaime PhD, Phone: [phone] Gayla Abreu MD LAB - CHEM ISTRY ORDERABLES Performing Organization Address City/State/[facility] Co de Phone Number [facility] [place]) from Last 3 Months or Most Recently Relevant to Health Maintenance Care Teams Merchandise Clerk Relationship Specialty Start Date End Date Javi Meeks MD [address] [place], [place] [id number] PCP - General 05/16/18
== END 2024-09-25 12:08 | disposition home or self-care (01) ==
LOC: ANHIMG 12:08
PROVIDERS: PCP Nurse Practitioner Family; Visit Provider Nurse Practitioner Family
DX: R10.9 Unspecified abdominal pain (principal); Z90.49 Acquired absence of other specified parts of digestive tract; Z87.442 Personal history of urinary calculi; Z98.84 Bariatric surgery status; Z90.710 Acquired absence of both cervix and uterus; Z98.1 Arthrodesis status
CPT/HCPCS: 74176

== ENCOUNTER 2025-02-16 08:53 | Emergency (ER) | payer OTHER, SELFPAY ==
--- NOTE | ~2025-02-16 | XR_ITS ---
XR hand LT min 3V Ordering provider: Candice Dudley APRN History: . pain swelling bruising, bent fingers backwards . Comparison: March 02, 2013 FINDINGS: BONES: Fracture at the base of the proximal phalanx of the second, third and fourth fingers. Minimal anterior displacement is noted. Osteopenia of the bones. JOINT SPACES: Narrowing of the proximal and distal interphalangeal joints.. SOFT TISSUES: Unremarkable. IMPRESSION: Fracture at the base of the second, third and fourth fingers proximal phalanges. Reviewed, dictated and finalized at location A. IMPRESSION: Fracture at the base of the second, third and fourth fingers proximal phalanges .
[2025-02-16 09:02] VITALS: BP 130/81; PULSE 80; RESP 16; TEMP 36.2; O2SAT 94
--- NOTE | 2025-02-16 09:08 | ED_ITS ---
HPI - General Adult General Chief complaint: Extremity Injury, Upper Stated complaint: Fall, Left Hand Injury Time Seen by Provider: 02/16/25 09:10 Source: patient, RN notes reviewed and old records reviewed Mode of arrival: ambulatory Limitations: no limitations History of Present Illness HPI narrative: 64-year-old female presents to the [facility] with left hand pain worse of the 4 fingers. Patient states that on 4:00 a.m. this morning she was changing, was in a seated position, fell forward and bent her fingers all the way back. Significant bruising, swelling are noted able to the palmar and dorsal aspect. Patient has sensation intact in all 5 fingers. Capillary refill under 2 seconds Denies hitting head. Has been applying ice Related Data Home Medications ?Medication ?Instructions ?Recorded ?Confirmed ?Last Taken ?Type cetirizine 10 mg tablet (Zyrtec) 10 mg PO DAILY PRN Allergy Symptoms 07/03/19 12/23/24 Unknown History folic acid 1 mg tablet PO DAILY 10/03/23 12/23/24 Unknown History golimumab 12.5 mg/mL intravenous IV 06/03/24 12/23/24 Unknown History solution (Simponi ARIA) methotrexate sodium 2.5 mg tablet 2.5 mg PO WEEKLY 09/25/24 12/23/24 Unknown History Allergies Allergy/AdvReac Type Severity Reaction Status Date / Time adhesive tape Allergy Unknown BLISTER Verified 02/16/25 09:27 prednisone AdvReac Intermediate edema Verified 02/16/25 09:27 Review of Systems 2 Review of Systems: All systems reviewed & are unremarkable except as noted in HPI and below Constitutional: Constitutional: Reports no additional constitutional complaints Musculoskeletal: Musculoskeletal: Reports as per HPI Integumentary/Breasts: Skin/Breast: Reports as per HPI PMFSH Past Medical History Medical History RLQ discomfort Preoperative clearance Diarrhea of presumed infectious origin Acute non-recurrent maxillary sinusitis Acute cystitis Abdominal pain in female History of miscarriage x 1 Fibromyalgia Diabetic gastroparesis Major depressive disorder, recurrent, moderate Metabolic syndrome Other obesity due to excess calories Essential (primary) hypertension Primary insomnia Intervertebral disc degeneration (~2001) Surgical History Surgical History History of dilatation and curettage History of left knee surgery meniscus tear History of cholecystectomy (~12/04/11) History of lumbar discectomy (~1999) History of hysterectomy, supracervical (~03/05/06) History of gastric bypass (~02/02/09) History of lumbar discectomy (~07/05/09) History of lumbar discectomy (~07/05/10) History of lumbar fusion (~09/05/13) S/P cervical spinal fusion (~03/05/14) Family History Family History Mother Hypertension Vascular disease Cerebrovascular accident Dementia Father Brain cancer Other Breast cancer Maternal niece Ovarian cancer Paternal cousin Other Family history of malignant neoplasm of breast Family history of malignant neoplasm of ovary No family history of malignant neoplasm Social History Social History Smoking status: Never smoker Tobacco type: cigarettes Second hand tobacco smoke exposure: No Alcohol intake: former Substance use: never Substance use type: does not use Lack of Transportation: No Lack of Food: Never True Current Housing: I Have Housing Concerned About Future Housing: No Difficulty Paying Gas/Electric Bills: No Difficulty Paying for Meds: No Currently Unemployed: No Education: Master's Degree or Higher Difficulty w/ Childcare or Family Care: Decline to Answer Living arrangements: with family 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 There is no relevant family history pertinent to the patient complaint. Exam 2 Const: General: cooperative, healthy appearing, comfortable, no acute distress, well developed, alert and well nourished Nutritional Appearance: w ell nourished and obese Orientation/consciousness: patient oriented x3 L imitations: no limitations HENMT: Head: normal to inspection Eyes: General: appearance normal, both eyes and all related structures A lignment and Position: alignment normal Neck: Neck: normal visual inspection, full ROM, no lymphadenopathy and no meningeal signs Chest: Chest palpation & inspection: normal inspection of the chest Resp: Effort & Inspection: normal respiratory effort and able to speak in complete sentences Cardio: Rate: regular rate Neuro: General: patient oriented x3, gait normal, moves all extremities and no meningeal signs Cognition (Neuro): normal cognition Speech: normal speech Gait exam (Neuro): Normal gait present Extrem: General: normal to inspection, full ROM, capillary refill normal and normal gait Left upper extremity: hand normal capillary refill, neuromotor exam normal Details: wrist extension normal, thumb opposition normal, thumb IP flexion normal, thumb ADduction normal and fingers 2-5 ABduction normal, tenderness, vascular exam radial pulse present and normal capillary refill, swelling and ecchymosis Hand/finger images: 1. Bruising and swelling noted 2. Significant bruising and swelling Psych: Appearance: grossly normal and well kempt Mental Status: mental status grossly normal Speech and movement: Normal speech and movement present and Clear speech present Affect: normal affect Attitude: cooperative Course Course Level of Care: Express Care Visit Vital Signs Vital signs: Vital Signs Temperature 97.2 F L 02/16/25 09:02 Pulse Rate 80 02/16/25 09:02 Respiratory Rate 16 02/16/25 09:02 Blood Pressure 130/81 02/16/25 09:02 Pulse Oximetry 94 02/16/25 09:02 Oxygen Delivery Room Air 02/16/25 09:02 Temperature 97.2 F L 02/16/25 09:02 Pulse Rate 80 02/16/25 09:02 Respiratory Rate 16 02/16/25 09:02 Blood Pressure 130/81 02/16/25 09:02 Pulse Oximetry 94 02/16/25 09:02 Oxygen Delivery Room Air 02/16/25 09:02 Reviewed Medical Decision Making MDM Narrative Medical decision making narrative: Patient sitting comfortably in exam room. Nontoxic, vitals stable. Patient in no acute distress Patient presents with bending back fingers at 4:00 a.m.. Significant bruising and swelling. X-ray shows fractures to fingers 2 3 and 4 proximal Discussed with patient prescribing pain medications which she is declining at this time. Splint is applied, sling given. Patient is appropriate for outpatient treatment with close follow-up with orthopedic Discharge instructions reviewed with patient, as well as provided in writing per nursing staff. The instructions also include specific and strict return/GO TO THE ER as well as f/u information. All questions have been answered, and the patient deny any further questions with discharge and discharge plan. Some parts of this dictation were generated by voice recognition software and may contain typographical and/or grammatical inaccuracies. Differential Diagnosis Differential Diagnosis: Sprain, sprain, fracture, contusion Medical Records Medical records reviewed: Yes I reviewed the external patient's medical records. Vital Signs Vital Signs: Vital Signs Temperature 97.2 F L 02/16/25 09:02 Pulse Rate 80 02/16/25 09:02 Respiratory Rate 16 02/16/25 09:02 Blood Pressure 130/81 02/16/25 09:02 Pulse Oximetry 94 02/16/25 09:02 Oxygen Delivery Room Air 02/16/25 09:02 Temperature 97.2 F L 02/16/25 09:02 Pulse Rate 80 02/16/25 09:02 Respiratory Rate 16 02/16/25 09:02 Blood Pressure 130/81 02/16/25 09:02 Pulse Oximetry 94 02/16/25 09:02 Oxygen Delivery Room Air 02/16/25 09:02 Reviewed Lab Data Lab results reviewed: Yes I reviewed the patient's lab results. Labs: Reviewed Imaging Data Radiologist's impression: XR hand LT min 3V Ordering provider: Candice Dudley APRN History: . pain swelling bruising, bent fingers backwards . Comparison: March 02, 2013 FINDINGS: BONES: Fracture at the base of the proximal phalanx of the second, third and fourth fingers. Minimal anterior displacement is noted. Osteopenia of the bones. JOINT SPACES: Narrowing of the proximal and distal interphalangeal joints.. SOFT TISSUES: Unremarkable. IMPRESSION: Fracture at the base of the second, third and fourth fingers proximal phalanges. Critical Care Time Critical Care Time Critical Care Time: No Discharge Plan Discharge Clinical Impression: Multiple closed fractures of fingers Qualifiers: Encounter type: initial encounter Qualified Code(s): S62.609A - Fracture of unspecified phalanx of unspecified finger, initial encounter for closed fracture Patient Disposition: Home Condition: Stable Instructions: Antibiotic Form, Finger Fracture (ED), How to Use a Sling (ED), Splint Care (ED) Additional Instructions: Rest, ice and elevate every 2-3 hours for 15-20 minutes while awake. Wear the splint until cleared by Ortho Follow-up with primary care provider Call Ortho today for a appointment Patient Language: Barbadian Prescriptions: No Action folic acid 1 mg tablet PO DAILY meclizine 25 mg tablet 25 mg PO TID PRN (Reason: dizziness) Qty: 30 0RF methotrexate sodium 2.5 mg tablet 2.5 mg PO WEEKLY Simponi ARIA 12.5 mg/mL solution IV Wegovy 2.4 mg/0.75 mL pen injector 2.4 mg subcut WEEKLY Qty: 3 5RF cetirizine [Zyrtec] 10 mg tablet 10 mg PO DAILY PRN (Reason: Allergy Symptoms) albuterol sulfate [Ventolin HFA] 90 mcg/actuation HFA aerosol inhaler 2 puff INHALATION Q4H PRN (Reason: bronchospasm) Qty: 8.5 2RF meloxicam 7.5 mg tablet 7.5 mg PO BID PRN (Reason: pain) Qty: 30 0RF trazodone 100 mg tablet 200 mg PO QHS Qty: 180 1RF duloxetine [Cymbalta] 60 mg capsule,delayed release(DR/EC) 60 mg PO DAILY Qty: 90 1RF spironolactone 25 mg tablet See Rx Instructions .ROUTE .COMPLEX Qty: 90 0RF Dose Instruction: TAKE 1 TABLET BY MOUTH DAILY Rx Instructions: TAKE 1 TABLET BY MOUTH DAILY metoprolol tartrate 50 mg tablet See Rx Instructions .ROUTE .COMPLEX Qty: 180 1RF Dose Instruction: TAKE ONE TABLET BY MOUTH TWICE A DAY Rx Instructions: TAKE ONE TABLET BY MOUTH TWICE A DAY zolpidem 10 mg tablet 10 mg PO QHS Qty: 30 5RF diazepam 5 mg tablet 5 mg PO TID PRN (Reason: anxiety or muscle spasms) Qty: 30 1RF baclofen 20 mg tablet 20 mg PO TID PRN (Reason: muscle spasm) Qty: 60 0RF Rx Instructions: Do not take with cyclobenzaprine hydrocodone-acetaminophen 5-325 mg tablet 1 tablet PO QID PRN (Reason: pain) Qty: 25 0RF Follow-up/Referrals: Mikel Goodson MD [Physician] - 3 Days Leana Luna APRN [Advanced Practice Nurse] - Marquis Mann MD [Primary Care Provider] - 1 Week Time of Disposition: 10:08
== END 2025-02-16 10:15 | disposition home or self-care (01) ==
PROVIDERS: Emergency Provider Nurse Practitioner; PCP Family Medicine Adolescent Medicine
DX: S62.611A Displaced fracture of proximal phalanx of left index finger, initial encounter for closed fracture (principal); S62.613A Displaced fracture of proximal phalanx of left middle finger, initial encounter for closed fracture; S62.615A Displaced fracture of proximal phalanx of left ring finger, initial encounter for closed fracture; W19.XXXA Unspecified fall, initial encounter; M79.7 Fibromyalgia; E11.43 Type 2 diabetes mellitus with diabetic autonomic (poly)neuropathy; K31.84 Gastroparesis; Z79.85 Long-term (current) use of injectable non-insulin antidiabetic drugs; I10 Essential (primary) hypertension; E66.89 Other obesity not elsewhere classified; Z68.41 Body mass index [BMI] 40.0-44.9, adult; Z98.84 Bariatric surgery status; F33.9 Major depressive disorder, recurrent, unspecified
CPT/HCPCS: 29125; 73130; 99214; A4565; G0463

== ENCOUNTER 2025-02-20 15:14 | Observation (INO) | payer OTHER, SELFPAY ==
[2025-02-20] VITALS (8 sets, daily range): BP systolic 138–188; BP diastolic 76–99; PULSE 76–93; RESP 16–20; TEMP 36.7–36.9; O2SAT 95–100; BMI 43.1
--- NOTE | ~2025-02-20 | XR_ITS ---
Portable chest x-ray Comparison: 10/26/2020 Clinical History: CVA Findings: Lungs are clear, without focal consolidation or pleural effusion. Cardiomediastinal silho uette is stable. Soft tissues are unremarkable. Stable fixation hardware at the cervical and lumbar s pine.. Impression: Clear lungs. Reviewed, dictated and finalized at location . Impression: Clear lungs.
--- NOTE | ~2025-02-20 | MR_ITS ---
EXAMINATION: MR brain/brain stem wo/w con DATE: 02/21/2025 16:02 INDICATION: TIA workup TECHNIQUE: Magnetic resonance imaging (MRI) of the brain and brainstem was performed without and with 20 mL MultiHance were intravenous contrast. Sequences included sagittal and axial T1-weighted SE, ax ial diffusion-weighted FS EPI ASSET, axial T2*-weighted GRE, axial T2-weighted FLAIR Propeller, and a xial T2-weighted Propeller. Postcontrast axial and coronal T1-weighted SE was obtained. Apparent diff usion coefficient (ADC) maps were created. COMPARISON: 10/22/2014; CTA brain carotid 02/20/2025; CT brain April 1925 FINDINGS: No abnormal restricted diffusion to suggest acute ischemic infarct. No MRI evidence of hemorrhage or extra-axial collection. No suspicious foci of susceptibility to suggest prior intraparenchymal hemorr kadie. Scattered foci of white matter hyperintensity, likely representing mild small vessel ischemic d isease. Mild generalized parenchymal volume loss. The basilar cisterns are patent. Flow voids are pre served. Paranasal sinuses are within normal limits. Globes and orbital contents are within normal tabor its. IMPRESSION: No acute intracranial process. Reviewed, dictated and finalized at location K.
--- NOTE | ~2025-02-20 | CT_ITS ---
Non-contrast Head CT History: CVA Technique: Axial non-contrast imaging of the brain was performed. Dose reduction technique was used on this scan by utilizing automated exposure control and iterative reconstruction technique. The dose -length product (DLP) was 605.33 mGy-cm. Findings: There is no evidence of intracranial hemorrhage, mass lesion, or acute infarct. Brain par enchyma appears normal. The ventricles and subarachnoid spaces are normal in size. The calvarium ap pears normal. The visualized paranasal sinuses and mastoid air cells are clear. Impression: No significant abnormality seen. Reviewed, dictated and finalized at location . Impression: No significant abnormality seen.
--- NOTE | ~2025-02-20 | CT_ITS ---
CT ANGIOGRAM NECK AND HEAD History: CVA. Technique: Serial spiral axial images through the head and neck were obtained during arterial phase I V injection of 100 cc of Omnipaque 350. 3-D postprocessing and MIP images were then reconstructed on the remote workstation. Dose reduction technique was used on this scan by utilizing automated exposur e control and iterative reconstruction technique. The dose-length product (DLP) was 1154.44 mGy-cm. CTA neck findings: Bilateral vertebral arteries are patent. Bilateral common carotid, internal carot id, and external carotid arteries are patent. Questionable focal high-grade stenosis at the origin of the right internal carotid artery, versus volume averaging. No large vessel occlusion. No aneurysm. The proximal right internal carotid artery demonstrates possible 70% stenosis relative to the normal distal artery lumen diameter. The proximal left internal carotid artery demonstrates 0% stenosis rela tive to the normal distal artery lumen diameter. CTA head findings: Distal vertebral arteries, basilar artery, posterior cerebral arteries are patent. Distal internal carotid arteries, middle cerebral arteries, and anterior cerebral arteries are paten t. No large vessel occlusion or stenosis. No aneurysm. Impression: Questionable 70% stenosis of the origin of the right internal carotid artery versus volume averaging. Reviewed, dictated and finalized at location M. Impression: Questionable 70% stenosis of the origin of the right internal carotid artery ve rsus volume averaging.
--- OUTSIDE RECORDS SUMMARY | 2025-02-20 15:18 | XMS_ITS | Clinical Summary ---
Author Organization [facility] Address [address] [place] [id number] Care Team Providers Care Water Engineer Name Role Phone Molly Figueroa MD Primary Care Provider Reena Solitario AUDIOMETRIC TECHNICIAN Unavailable [phone] Leana Luna AUDIOMETRIC TECHNICIAN Unavailable [phone] Allergies Active Allergy Reactions Criticality Noted [...] major depressive d isorder 10/26/2022 Sedative dependence 10/26/2022 Primary insomnia 10/26/2022 Sacroiliitis 10/20/2022 Lumbar post-laminectomy syndrome 10/02/2022 Lumbar radiculitis 10/02/2022 Prediabetes 08/29/2022 Overview (08/29/2022): unclear if controlled Dm or true Pre-DM. get records. continue ozempic for now. work on diet, exercise, wt loss Mild intermittent asthma without complication Lumbar stenosis 12/04/2016 Chronic midline low back pain without sciatica 0 10/09/2016 AMBER (generalized anxiety disorder) 10/09/2016 Cdft-pu-qzzu spots 08/29/2015 Fibromyalgia 05/18/2015 Vitamin D deficiency [...] 04/16/2007 Surgical History Surgery Date Site/Laterality Comments ME ARTHRD ANT INTERBODY MIN DSC LUMBAR Lumbar Vertebral Fusion - (Added by TW Conv) ME ARTHRD ANT INTERBODY MIN DSC CRV BELOW C2 Cervical Vertebral Fusion - (Added by TW Conv) ME CHOLECYSTECTOMY Cholecystectomy - (Added by TW Conv) GASTRIC BYPASS High Gastric Bypass - (Added by TW Conv) ME ARTHROSCOPY KNEE W/MENISCUS RPR MEDIAL/LATERAL Knee Arthroscopy With Lateral Meniscus Repair - (Added by TW Conv) BACK SURGERY Back Surgery - (Added by TW Conv) ME NEUROPLASTY &/TRANSPOS MEDIAN NRV CARPAL TUNNE Neuroplasty Decompression Median Nerve At Carpal Tunnel - (Added by TW Conv) LAPRASCOPIC SUPRACERVICAL HYSTERECTOMY Supracervical Hysterectomy Laparoscopic - (Added by TW Conv) FACET BLOCK CERVICAL THORACIC 1 LEVEL LEFT 03/22/2021 Bilateral HYSTERECTOMY At age 41, partial SPINE SURGERY 7 surgeries beginnin g approx. 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 ago with concommitent BARIATRIC SURGERY Completed approx. [...] Dx. over 10 yrs ago. Autoimmune disease Fibro myalgia Infection Upper resp. Infectio n, possible pneumonia. Family History Medical History Relation Name Comments Diabetes Brother Antonio Hewitt Vision loss Brother Antonio Hewitt Arthritis Father Jesus Benites. 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 Gender Identity Not on file Sexual Orientation [...] 1:06 PM CDT Height 164.5 cm (5' 4.76) 10/30/2022 1:06 PM CD T Body Mass [...] 10/26/2022, 08/29/2022, Additional history exists Covid-19 Vaccine (4 - 2023-2 5 season) 2024 07/27/2021, 10/27/2020, 10/06/2020 Influenza Vaccine (Season Ended) 2025 07/15/2020, 07/03/2019, 04/15/2018, Additional history exists Colon Cancer [...] Most Recently Relevant to Health Maintenance Insurance [facility] Advance Directives For more information, please contact: [phone] * Full Code (Latest Code Status on File) Date Activated Date Inactivated Comments 08/17/2021 9:30 AM 08/18/2021 4:36 AM Care Teams Water Engineer Relationship Specialty Start Date End Date Molly Figueroa MD PCP - General Family Practice 08/29/22 Reena Solitario NP [address] [place] [address] Nurse Practitioner Psychiatry 10/26/22 Leana Luna NP [address] [place] [address] Nurse Practitioner Family Practice 03/11/23
--- OUTSIDE RECORDS SUMMARY | 2025-02-20 15:18 | XMS_ITS | Clinical Summary ---
Author Organization [facility] Address [address] [place] [address] Care Team Providers Care Manager Office Name Role Phone Javi Meeks MD Primary Care Provider [phone] Source Comments [facility],non-owned Affiliates and Associated Physician Practices is amultiple site organization consisting of ambulatory clinics and hospital sitesin [place], [place] and [place]. This disclosure is being madepursuant to the Care Everywhere program and may not contain all information available regarding this patient. 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/2015 [id number] spots 08/29/2015 Fibromyalgia 05/18/2015 Family History Medical [...] = 0.6 oz pur e alcohol) Comments Unknown Sex and Gender Information Value Date Recorded Sex Assigned at Not on file Legal Sex Female 6:02 PM FIREMAN Gender Identity Not on file Sexual Orientation Not on file Last Filed Vital Signs Vital Sign Reading Time Taken Comments Blood Pressure 136/72 06/22/2015 8:42 AM FIREMAN Pulse 74 06/22/2015 8:42 AM FIREMAN Temperature 36.2 C (97.1 F) 06/22/2015 8:42 AM FIREMAN Respiratory Rate - - Oxygen Saturation 98% 06/22/2015 8:42 AM FIREMAN Inhaled Oxygen Concentration - - Weight 91.5 kg (201 lb 12.8 oz) 06/22/2015 8:42 AM FIREMAN Height 162.6 cm (5' 4) 06/22/2015 8:42 AM FIREMAN Body Mass Index 34.64 06/22/2015 8:42 AM FIREMAN Plan of Treatment Health Maintenance Due Date Last Done Comments COLOGUARD (AGES 45-75) - COLON CA SCREENING 1961 COLON MONITORING 1961 COLONOSCOPY - COLON CA SCREENING 1961 CT COLONOGRAPHY - COLON CA SCREENING 1961 Colorectal Cancer Screening 1961 FIT - COLON CA SCREENING 1961 FLEX SIG - COLON CA SCREENING 1961 LIPID TESTING 1961 MAMMOGRAM 1961 HIV SCREENING 1976 DTAP/TDAP/TD VACCINES (1 - Tdap) 1980 PAP SMEAR 1982 PNEUMOCOCCAL VACCINE 50+ (1 of 1 - PCV) 11/27/2011 ZOSTER VACCINE (1 of 2) 11/27/2011 COVID-19 VACCINE (4 - 2023- season) 2024 07/27/2021, 10/27/2020, 10/06/2020 DEPRESSION SCREENING 08/05/2024 INFLUENZA VACCINE (#1) 2025 , 07/03/2019, 04/15/2018, Additional history exists Respiratory Syncytial Virus (RSV) Vaccine Pt: or [...] complete this topic MENINGOCOCCAL (Group B) VACCINE SHARED DECISION-MAKING Aged Out No longer eligible based on patient's age to complete this topic MENINGOCOCCAL GROUPS A/C/Y/W VACCINE Aged Out No longer eligible based on patient's age to complete this topic Procedures Procedure Name Priority Date/Time Associated Diagnosis Comments HEPATITIS C ANTIBODY Routine 05/18/2015 1:36 PM CDT from Last 3 Months or Most Recently Relevant to Health Maintenance Results * HEPATITIS C ANTIBODY (05/18/2015 1:36 PM CDT) Hepatitis C Virus Antibody <0.1 0.0 - 0.9 s/co ratio [facility] ([facility]) Comment: Negative: < 0.8 Indeterminate: 0.8 - 0.9 Positive: > 0.9 In order to reduce the incidence of a false positive result, the CDC recommends that all s/co ratios between 1.0 and 10.9 be confirmed by a more specific supplemental or PCR testing. [facility] offers HCV Ab w/Reflex to Verification test #[id number]. Blood specimen (specimen) BLOOD SPECIMEN / Unknown 05/18/2015 1:36 PM CDT 05/18/2015 4:06 PM CDT Narrative [facility] ([facility]) - 05/20/2015 7:18 AM CDT Performed at: - [facility] [address] [place], [place] [id number] [employer] Roller: Santiago Jaime PhD, Phone: [phone] Gayla Abreu MD LAB - CHEMISTRY OR DERABLES Edited Result - Final [facility] ([facility]) [address] [place] [address], [facility] from Last 3 Months or Most Recently Relevant to Health Maintenance Insurance [facility] Care Teams Manager Office Relationship Specialty Start Date End Date Javi Meeks MD [address] [place] [id number] PCP - General 05/16/18
--- OUTSIDE RECORDS SUMMARY | 2025-02-20 15:18 | XMS_ITS | Referral Summary ---
Author Organization [facility] Address [address] [place] [address] Care Team Providers Care Maintenance Engineer Oil Field Name Role Phone Molly Figueroa MD Primary Care Provider Reena Solitario CUE WORKER Unavailable [phone] Leana Luna CUE WORKER Unavailable [phone] Allergies Active Allergy Reactions Criticality Noted [...] 0 10/09/2016 AMBER (generalized anxiety disorder) 10/09/2016 [id number] spots 08/29/2015 Fibromyalgia 05/18/2015 Vitamin D deficiency [...] on file Legal Sex Female 1:19 PM NET MOBILE DEVELOPER Gender Identity Not on file Sexual Orientation [...] Results * COLONOSCOPY (08/15/2022) us Historical Provider HEALTH MAINTENANCE Final Result from Last 3 Months or Most Recently Relevant to Health Maintenance Insurance [facility] Address: [address] [address] [facility] Address: [address] [place] [address] [facility]/PPO Address: [address] [place] [phone] Advance Directives For more information, please contact: [phone] * Full Code (Latest Code Status on File) Date Activated Date Inactivated Comments 08/17/2021 9:30 AM 08/18/2021 4:36 AM Care Teams Maintenance Engineer Oil Field Relationship Specialty Start Date End Date Molly Figueroa MD PCP - General Family Practice 08/29/22 Reena Solitario NP [address] [place] [address] Nurse Practitioner Psychiatry 10/26/22 Leana Luna NP [address] [place] [address] Nurse Practitioner Family Practice 03/11/23
--- OUTSIDE RECORDS SUMMARY | 2025-02-20 15:18 | XMS_ITS | Encounter Summary ---
Author Organization [facility] Address [address] [place] [address] Phone Care Team Providers Care Muskrat Trapper Name Role Phone Javi Meeks MD Primary Care Provider [phone] Jose Panda MD Primary Care Provider [phone] Unknown, Notinfile Primary Care Provider Unavail able Molly Figueroa MD Primary Care Provider Reena Solitario METER MAINTENANCE PERSON Unavailable [phone] Leana Luna METER MAINTENANCE PERSON Unavailable [phone] Encounter Details Date Type Department Care Team (Late st Contact Info) Description 03/26/2022 Telephone [facility] Orthopaedic Surgery [address] [place] [address] Jassi Rene MD [address] [address] [place], [place] [id number] Social History Tobacco Use Types Packs/Day Years Used Date Smoking Tobacco: Never Smokeless Tobacco: Never Alcohol Use Standard Drinks/Week Comments Never 0 (1 standard drink = 0.6 oz pur e alcohol) Comments No Sex and Gender Information Value Date Recorded Sex Assigned at Not on file Legal Sex Female 1:19 PM LICENSED PHYSICAL THERAPIST Gender Identity Not on file Sexual Orientation Not on file documented as of this encounter Plan of Treatment Not on file documented as of this encounter Visit Diagnoses Not on filedocumented in this encounter Care Teams Muskrat Trapper Relationship Specialty Start Date End Date Javi Meeks MD [address] [place] [address] PCP - General 10/15/16 06/03/22 Jose Panda MD [address] [place] [address] PCP - General Family Medicine 06/04/22 07/10/22 Unknown, Notinfile PCP - General 07/11/22 08/28/22 Molly Figueroa MD PCP - General Family Practice 08/29/22 Reena Solitario NP [address] [place] [address] Nurse Practitioner Psychiatry 10/26/22 Leana Luna NP [address] [place] [address] Nurse Practitioner Family Practice 03/11/23 documented as of this encounter
--- OUTSIDE RECORDS SUMMARY | 2025-02-20 15:18 | XMS_ITS | Patient Health Record ---
Author Organization [facility] Address [address] [place] [address] Care Team Providers Care Bunch Maker Hand Name Role Phone Reena Solitario Unavailable [phone] Reason For Referral No Information Medications Medication SIG (Take, Route, Frequency, Duration) Notes Start Date End Date Status Methocarbamol 500 MG Oral 12/06/2022 Active DULoxetine HCl 60 MG Oral 12/06/2022 Active busPIRone HCl 10 MG Oral 12/06/2022 Active Penicillin V Potassium 500 MG Oral 12/06/2022 Active Zolpidem Tartrate 10 MG Oral 12/06/2022 Active oxyCODONE HCl 5 MG Oral 12/06/2022 Active ProAir HFA 108 (90 Base) MCG/ACT Inhalation 12/06/2022 Active Buprenorphine 10 mcg/hour Transdermal *[email or web address]* 12/06/2022 Active Cyanocobalamin 1000 MCG/ML Injection 12/06/2022 Active traZODone HCl 100 MG Oral 12/06/2022 Active traMADol HCl 50 MG Oral 12/06/2022 Active Metoprolol Tartrate 50 MG Oral 12/06/2022 Active Ozempic (0.25 or 0.5 MG/DOSE) 2 MG/3ML Subcutaneous *Pick strength-form from [email or web address] for e[facility]* 12/06/2022 Active Pregabalin 150 MG Oral 12/06/2022 A ctive Metoprolol Tartrate *Pick strength-form from [facility] for eRX* 12/06/2022 Active lamoTRIgine 25 MG Oral 12/06/2022 A ctive diazePAM 5 MG Oral 12/06/2022 Activ e Ergocalciferol 1.25 MG (94271 [place]) Oral 12/06/2022 Active Ambien 5 MG Oral 12/06/2022 Active Immunizations Vaccine Route Administration Date Status Comme nts Influenza virus vaccine, quadrivalent (IIV4), split virus, 0.25 mL dosage Unknown 04/07/2018 Administered Plan Of Treatment No Information Insurance Providers Payer Name Payer Address Payer Phone Subscriber Number Group Number Insured Name Patient Relationship to Insured Coverage Start Date Coverage End Date [facility] [address] [address] [place] [address] [id number] LUZ LUEVANO Self - patient is the insured
--- NOTE | 2025-02-20 15:48 | ED_ITS ---
HPI - General Adult General Chief complaint: Recheck/Abnormal Lab/Rx Stated complaint: TIA Time Seen by Provider: 02/20/25 15:45 History of Present Illness HPI narrative: This is a 64-year-old female presenting for possible TIA. She was laying in bed at 2:00 p.m. when she said she started to feel very tired. She tried to call her and her speech was very garbled and they cannot understand. She then had her called 911 and by time EMS arrived her symptoms have started to resolve. Patient had taken her baclofen at 11:00 a.m. this morning. She is not typically experience severe fatigue from that. She also had broken her hand earlier in the week and has not yet seen hand. She has removed the splint on her and because she said it hurt. Patient denies any recent illnesses, fevers chills nausea vomit chest pain breathing abdominal pain Related Data Home Medications ?Medication ?Instructions ?Recorded ?Confirmed ?Last Taken ?Type cetirizine 10 mg tablet (Zyrtec) 10 mg PO DAILY PRN Allergy Symptoms 07/03/19 12/23/24 Unknown History folic acid 1 mg tablet PO DAILY 10/03/23 12/23/24 Unknown History golimumab 12.5 mg/mL intravenous IV 06/03/24 12/23/24 Unknown History solution (Simponi ARIA) methotrexate sodium 2.5 mg tablet 2.5 mg PO WEEKLY 09/25/24 12/23/24 Unknown History Allergies Allergy/AdvReac Type Severity Reaction Status Date / Time adhesive tape Allergy Unknown BLISTER Verified 02/16/25 09:27 prednisone AdvReac Intermediate edema Verified 02/16/25 09:27 [facility] Past Medical History Medical History RLQ discomfort Preoperative clearance Diarrhea of presumed infectious origin Acute non-recurrent maxillary sinusitis Acute cystitis Abdominal pain in female History of miscarriage x 1 Fibromyalgia Diabetic gastroparesis Major depressive disorder, recurrent, moderate Metabolic syndrome Other obesity due to excess calories Essential (primary) hypertension Primary insomnia Intervertebral disc degeneration (~2001) Surgical History Surgical History History of dilatation and curettage History of left knee surgery meniscus tear History of cholecystectomy (~12/04/11) History of lumbar discectomy (~1999) History of hysterectomy, supracervical (~03/05/06) History of gastric bypass (~02/02/09) History of lumbar discectomy (~07/05/09) History of lumbar discectomy (~07/05/10) History of lumbar fusion (~09/05/13) S/P cervical spinal fusion (~03/05/14) Family History Family History Mother Hypertension Vascular disease Cerebrovascular accident Dementia Father Brain cancer Other Breast cancer Maternal niece Ovarian cancer Paternal cousin Other Family history of malignant neoplasm of breast Family history of malignant neoplasm of ovary No family history of malignant neoplasm Social History Social History Smoking status: Never smoker Tobacco type: cigarettes Second hand tobacco smoke exposure: No Alcohol intake: former Substance use: never Substance use type: does not use Lack of Transportation: No Lack of Food: Never True Current Housing: I Have Housing Concerned About Future Housing: No Difficulty Paying Gas/Electric Bills: No Difficulty Paying for Meds: No Currently Unemployed: No Education: Master's Degree or Higher Difficulty w/ Childcare or Family Care: Decline to Answer Living arrangements: with family 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 Head: atraumatic. EYES: Extraocular eye movement intact except for Left eye has impaired upward movement from a previous closed head injury as a child NOSE: Atraumatic NECK: Trachea midline RESPIRATORY: No increased rate of breathing CARDIOVASCULAR: RRR, ABDOMINAL: Non-distended MUSCULOSKELETAl: Focal exam of left hand revealed diffuse bruising and pain due to previous fracture that the patient removed her splint from NEURO: Alert. Sensation light touch, motor function cerebellar function intact for 4 extremities. Gait exam was normal. SKIN:: Warm, dry. Normal color PSYCHIATRIC: Normal affect NIH Stroke Scale/Score (NIHSS) from [email or web address] on 02/20/2025 All calculations should be rechecked by clinician prior to use RESULT SUMMARY: 0 points NIH Stroke Scale INPUTS: 1A: Level of consciousness ?> 0 = Alert; keenly responsive 1B: Ask month and age ?> 0 = Both questi ons right 1C: 'Blink eyes' & 'squeeze hands' ?> 0 = Performs both tasks 2: Horizontal extraocular movements ?> 0 = Normal 3: Visual sequeira ?> 0 = No visual loss 4: Facial palsy ?> 0 = Normal symmetry 5A: Left arm motor drift ?> 0 = No drift for 10 seconds 5B: Right arm motor drift ?> 0 = No drif t for 10 seconds 6A: Left leg motor drift ?> 0 = No drift for 5 seconds 6B: Right leg motor drift ?> 0 = No drif t for 5 seconds 7: Limb Ataxia ?> 0 = No ataxia 8: Sensation ?> 0 = Normal; no sensory l oss 9: Language/aphasia ?> 0 = Normal; no ap hasia 10: Dysarthria ?> 0 = Normal 11: Extinction/inattention ?> 0 = No abn ormality Course Vital Signs Vital signs: Vital Signs Temperature 98.0 F 02/20/25 16:12 Pulse Rate 93 02/20/25 16:12 Respiratory Rate 16 02/20/25 16:12 Blood Pressure 188/76 H 02/20/25 16:12 Pulse Oximetry 97 02/20/25 16:12 Temperature 98.0 F 02/20/25 16:12 Pulse Rate 92 02/20/25 16:12 Respiratory Rate 18 02/20/25 16:12 Blood Pressure 188/76 H 02/20/25 16:12 Pulse Oximetry 99 02/20/25 16:12 Medical Decision Making [facility] Narrative Medical decision making narrative: -Course: This is a 64-year-old female presenting with a episode of garbled speech. This occurred at 2:00 p.m.. Symptoms resolved before 230. NIH is currently 0. CT brain negative bleed. CTA showed 70% stenosis of right vertebral artery. Rest her workup was unremarkable. Patient will be admitted the hospital for TIA workup. Differential diagnosis: TIA/CVA, medication side-effect, complex migraine Vital Signs Vital Signs: Vital Signs Temperature 98.0 F 02/20/25 16:12 Pulse Rate 93 02/20/25 16:12 Respiratory Rate 16 02/20/25 16:12 Blood Pressure 188/76 H 02/20/25 16:12 Pulse Oximetry 97 02/20/25 16:12 Temperature 98.0 F 02/20/25 16:12 Pulse Rate 92 02/20/25 16:12 Respiratory Rate 18 02/20/25 16:12 Blood Pressure 188/76 H 02/20/25 16:12 Pulse Oximetry 99 02/20/25 16:12 Lab Data 02/20/25 16:07 02/20/25 16:07 Labs: Lab Results 02/20/25 02/20/25 02/20/25 Range/Units 15:36 15:50 16:07 WBC 12.6 H (4.5-10.0) K/mm3 RBC 3.98 L (4.2-5.4) M/mm3 Hgb 11.3 L (12.0-15.0) g/dL Hct 36.7 L (37.0-47.0) % MCV 92.2 (80-100) fl MCH 28.4 (26-34) pg MCHC 30.8 L (32-36) g/dl RDW 17.4 H (11.5-14.5) % Plt Count 143 L (150-375) k/mm3 MPV 12.7 H (7.4-10.4) fl Immature Gran % (Auto) Not Reportable Neut % (Auto) Not Reportable Lymph % (Auto) Not Reportable [place] % (Auto) Not Reportable Eos % (Auto) Not Reportable Baso % (Auto) Not Reportable Lymph # (Auto) Not Reportable [place] # (Auto) Not Reportable Eos # (Auto) Not Reportable Baso # (Auto) Not Reportable Abs Immat Gran (auto) Not Reportable Absolute Neuts (auto) Not Reportable Absolute Nucleated RBC Not Reportable Total Counted 100 Neutrophils % (Manual) 73 (46-73) % Band Neutrophils % 0 (0-6) % Lymphocytes % (Manual) 14.0 L (18-44) % Monocytes % (Manual) 13 H (3-9) % Nucleated RBC % Not Reportable Abs Neuts (Manual) 9.19 H (1.3-6.7) K/mm3 Abs Lymphs (Manual) 1.76 (1.1-4.5) K/mm3 Abs Monocytes (Manual) 1.63 H (0.1-0.90) K/mm3 Nucleated RBCs 1 % Platelet Estimate Slightly decreased (Adequate) Hypochromasia 1+ Anisocytosis 3+ Schistocytes None seen PT 14.0 (11.1-14.7) Seconds INR 1.1 APTT 25.9 (22.3-36.8) Seconds Sodium 139 (137-145) mmol/L Potassium 3.1 L (3.4-5.0) mmol/L Chloride 106 (98-107) mmol/L Carbon Dioxide 23 (22-30) mmol/L Anion Gap 10 (4-12) mmol/L BUN 11 (7-17) mg/dL Creatinine 0.60 L 0.51 L (0.7-1.2) mg/dL Estim Creat Clear Calc Not Reportable 118 Estimated GFR > 60 > 60 (59 - ) Glucose 141 H (65-110) mg/dL POC Capillary Glucose 134 H (65-105) mg/dl Calcium 9.0 (8.4-10.2) mg/dL Total Bilirubin 0.5 (0.2-1.3) mg/dL AST 45 H (14-36) U/L ALT 32 (6-35) U/L Alkaline Phosphatase 75 (38-126) U/L Troponin I < 0.012 (0.000-0.034) ng/mL Total Protein 7.7 (6.3-8.2) g/dL Albumin 4.3 (3.5-5.1) g/dL Discharge Plan Discharge Clinical Impression: Transient neurological symptoms Patient Disposition: Still a Patient Condition: Stable Patient Language: Mongolian Prescriptions: No Action folic acid 1 mg tablet PO DAILY meclizine 25 mg tablet 25 mg PO TID PRN (Reason: dizziness) Qty: 30 0RF methotrexate sodium 2.5 mg tablet 2.5 mg PO WEEKLY Simponi ARIA 12.5 mg/mL solution IV Wegovy 2.4 mg/0.75 mL pen injector 2.4 mg subcut WEEKLY Qty: 3 5RF cetirizine [Zyrtec] 10 mg tablet 10 mg PO DAILY PRN (Reason: Allergy Symptoms) meloxicam 7.5 mg tablet 7.5 mg PO BID PRN (Reason: pain) Qty: 30 0RF trazodone 100 mg tablet 200 mg PO QHS Qty: 180 1RF duloxetine [Cymbalta] 60 mg capsule,delayed release(DR/EC) 60 mg PO DAILY Qty: 90 1RF spironolactone 25 mg tablet See Rx Instructions .ROUTE .COMPLEX Qty: 90 0RF Dose Instruction: TAKE 1 TABLET BY MOUTH DAILY Rx Instructions: TAKE 1 TABLET BY MOUTH DAILY metoprolol tartrate 50 mg tablet See Rx Instructions .ROUTE .COMPLEX Qty: 180 1RF Dose Instruction: TAKE ONE TABLET BY MOUTH TWICE A DAY Rx Instructions: TAKE ONE TABLET BY MOUTH TWICE A DAY zolpidem 10 mg tablet 10 mg PO QHS Qty: 30 5RF diazepam 5 mg tablet 5 mg PO TID PRN (Reason: anxiety or muscle spasms) Qty: 30 1RF baclofen 20 mg tablet 20 mg PO TID PRN (Reason: muscle spasm) Qty: 60 0RF Rx Instructions: Do not take with cyclobenzaprine hydrocodone-acetaminophen 5-325 mg tablet 1 tablet PO QID PRN (Reason: pain) Qty: 25 0RF albuterol sulfate [Ventolin HFA] 90 mcg/actuation HFA aerosol inhaler 2 puff INHALATION Q4H PRN (Reason: bronchospasm) Qty: 8.5 2RF Follow-up/Referrals: Marquis Mann MD [Primary Care Provider] -
--- NOTE | 2025-02-20 15:51 | ECG_ITS ---
Test Date: 2025-02-20 16:22:52 Measurements Intervals [place] Rate: 86 P: 41 FL: 147 QRS: -31 QRSD: 109 T: 17 QT: 403 QTc: 485 Interpretive Statements SINUS RHYTHM LEFT AXIS DEVIATION [QRS AXIS < -30] ABNORMAL ECG No previous ECG available for comparison Electronically Signed On 02-21-2025 08:09:00 CDT by Geoffrey Rosado M.D.
[2025-02-20 16:02] LABS: Estimated Glomerular Filt Rate > 60
[2025-02-20 16:12] LABS: Hematocrit 36.7 % (37.0-47.0); Hemoglobin 11.3 g/dL (12.0-15.0); Mean Corpuscular HGB Conc 30.8 g/dl (32-36); Mean Corpuscular Hemoglobin 28.4 pg (26-34); Mean Corpuscular Volume 92.2 fl (80-100); Platelet Count Result 143 k/mm3 (150-375); Red Blood Count 3.98 M/mm3 (4.2-5.4); White Blood Count 12.6 K/mm3 (4.5-10.0)
[2025-02-20 16:23] LABS: INR 1.1; Prothrombin Time 14.0 Seconds (11.1-14.7)
[2025-02-20 16:24] LABS: Partial Thromboplastin Time 25.9 Seconds (22.3-36.8)
[2025-02-20 16:25] LABS: Alanine Aminotransferase 32 U/L (6-35); Albumin Level 4.3 g/dL (3.5-5.1); Alkaline Phosphatase 75 U/L (38-126); Anion Gap 10 mmol/L (4-12); Aspartate Amino Transferase 45 U/L (14-36); Bilirubin,Total 0.5 mg/dL (0.2-1.3); Blood Urea Nitrogen 11 mg/dL (7-17); Calcium 9.0 mg/dL (8.4-10.2); Carbon Dioxide 23 mmol/L (22-30); Chloride 106 mmol/L (98-107); Estimated CRCL calculation 118 ml/min; Estimated Glomerular Filt Rate > 60; Glucose 141 mg/dL (65-110); Potassium 3.1 mmol/L (3.4-5.0); Sodium 139 mmol/L (137-145); Total Protein 7.7 g/dL (6.3-8.2)
[2025-02-20 16:36] LABS: Lymphocytes Absolute Manual 1.76 K/mm3 (1.1-4.5); Lymphocytes Percent Manual 14.0 % (18-44); Monocytes Absolute Manual 1.63 K/mm3 (0.1-0.90); Monocytes Percent Manual 13 % (3-9); Neutrophils Percent Manual 73 % (46-73); Total Cells Counted 100; Troponin I < 0.012 ng/mL (0.000-0.034)
[2025-02-20 16:40] LABS: Hypochromasia 1+; Schistocytes None Seen
[2025-02-20 16:41] LABS: Anisocytosis 3+
[2025-02-20 16:42] LABS: Band Neutrophils Percent 0 % (0-6); Neutrophils Absolute Manual 9.19 K/mm3 (1.3-6.7)
[2025-02-20] MEDS: POTASSIUM CHLORIDE 20 MEQ PACKET (FOR LIQUID) 40 MEQ PO (17:00)
--- NOTE | 2025-02-20 17:02 | PC.NURSE ---
patient provided with ordered potassium drink, patient was able to tolerate PO intake, with no coughing, choking, or gagging.
--- OUTSIDE RECORDS SUMMARY | 2025-02-20 17:02 | XMS_ITS | Referral Summary ---
Author Organization [facility] Address [address] [place] [address] Care Team Providers Care Credit Risk Management Director Name Role Phone Molly Figueroa MD Primary Care Provider Reena Solitario TUBE WRAPPER Unavailable Leana Luna TUBE WRAPPER Unavailable [phone] Allergies Active Allergy Reactions Criticality Noted [...] 0 10/09/2016 AMBER (generalized anxiety disorder) 10/09/2016 [id number] spots 08/29/2015 Fibromyalgia 05/18/2015 Vitamin D deficiency [...] on file Legal Sex Female 1:19 PM PHARMACY TECH Gender Identity Not on file Sexual Orientation [...] Most Recently Relevant to Health Maintenance Insurance [facility] Advance Directives For more information, please contact: [phone] * Full Code (Latest Code Status on File) Date Activated Date Inactivated Comments 08/17/2021 9:30 AM 08/18/2021 4:36 AM Care Teams Credit Risk Management Director Relationship Specialty Start Date End Date Molly Figueroa MD PCP - General Family Practice 08/29/22 Reena Solitario NP [address] [place] [address] Nurse Practitioner Psychiatry 10/26/22 Leana Luna NP [address] [place] [address] Nurse Practitioner Family Practice 03/11/23
--- OUTSIDE RECORDS SUMMARY | 2025-02-20 17:02 | XMS_ITS | Clinical Summary ---
Author Organization [facility] Address [address] [place] [address] Care Team Providers Care Block Handler Name Role Phone Javi Meeks MD Primary Care Provider Source Comments [facility],non-owned Affiliates and Associated Physician Practices is amultiple site organization consisting of ambulatory clinics and hospital sitesin [place], [place], [place] and [place]. This disclosure is being madepursuant to the Care Everywhere program and may not contain all information available regarding this patient. 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 [id number] spots 08/29/2015 Fibromyalgia 05/18/2015 Family History Medical [...] on file Legal Sex Female 6:02 PM CUSTOMS PORT DIRECTOR Gender Identity Not on file Sexual Orientation Not on file Last Filed Vital Signs Vital Sign Reading Time Taken Comments Blood Pressure 136/72 06/22/2015 8:42 AM CUSTOMS PORT DIRECTOR Pulse 74 06/22/2015 8:42 AM CUSTOMS PORT DIRECTOR Temperature 36.2 C (97.1 F) 06/22/2015 8:42 AM CUSTOMS PORT DIRECTOR Respiratory Rate - - Oxygen Saturation 98% 06/22/2015 8:42 AM CUSTOMS PORT DIRECTOR Inhaled Oxygen Concentration - - Weight 91.5 kg (201 lb 12.8 oz) 06/22/2015 8:42 AM CUSTOMS PORT DIRECTOR Height 162.6 cm (5' 4) 06/22/2015 8:42 AM CUSTOMS PORT DIRECTOR Body Mass Index 34.64 06/22/2015 8:42 AM CUSTOMS PORT DIRECTOR Plan of Treatment Health Maintenance Due Date [...] Antibody <0.1 0.0 - 0.9 s/co ratio [facility] ([facility]) Comment: Negative: < 0.8 Indeterminate: 0.8 - 0.9 Positive: > 0.9 In order to reduce the incidence of a false positive result, the CDC recommends that all s/co ratios between 1.0 and 10.9 be confirmed by a more specific supplemental or PCR testing. [facility] offers HCV Ab w/Reflex to Verification test #[id number]. Blood specimen (specimen) BLOOD SPECIMEN / Unknown 05/18/2015 1:36 PM CDT 05/18/2015 4:06 PM CDT Narrative [facility] ([facility]) - 05/20/2015 7:18 AM CDT Performed at: - [facility] [address] [place], [place] [id number] Regulatory Affairs Assistant: Santiago Jaime PhD, Phone: [phone] Gayla Abreu MD LAB - CHEMISTRY OR DERABLES Edited Result - Final [facility] ([facility]) [address] [place] [address], [facility] from Last 3 Months or Most Recently Relevant to Health Maintenance Insurance [facility] [place] [address] [facility] Care Teams Block Handler Relationship Specialty Start Date End Date Javi Meeks MD [address] [place] [address] PCP - General 05/16/18
--- OUTSIDE RECORDS SUMMARY | 2025-02-20 17:03 | XMS_ITS | Encounter Summary ---
Author Organization [facility] Address [address] [place] [address] Phone Care Team Providers Care White Goods Appliance Tech Name Role Phone Javi Meeks MD Primary Care Provider [phone] Jose Panda MD Primary Care Provider [phone] Unknown, Notinfile Primary Care Provider Unavail able Molly Figueroa MD Primary Care Provider Reena Solitario PICK UP DRIVER Unavailable [phone] Leana Luna PICK UP DRIVER Unavailable [phone] Encounter Details Date Type Department Care Team (Late st Contact Info) Description 03/26/2022 Telephone [facility] Orthopaedic Surgery [address] [place] [address] Jassi Rene MD [address] [address] [place], [place] [id number] Social History Tobacco Use Types Packs/Day Years Used Date Smoking Tobacco: Never Smokeless Tobacco: Never Alcohol Use Standard Drinks/Week Comments Never 0 (1 standard drink = 0.6 oz pur e alcohol) Comments No Sex and Gender Information Value Date Recorded Sex Assigned at Not on file Legal Sex Female 1:19 PM TOWN CLERK Gender Identity Not on file Sexual Orientation Not on file documented as of this encounter Plan of Treatment Not on file documented as of this encounter Visit Diagnoses Not on filedocumented in this encounter Care Teams White Goods Appliance Tech Relationship Specialty Start Date End Date Javi Meeks MD [address] [place] [address] PCP - General 10/15/16 06/03/22 Jose Panda MD [address] [place] [address] PCP - General Family Medicine 06/04/22 07/10/22 Unknown, Notinfile PCP - General 07/11/22 08/28/22 Molly Figueroa MD PCP - General Family Practice 08/29/22 Reena Solitario NP [address] [place] [address] Nurse Practitioner Psychiatry 10/26/22 Leana Luna NP [address] [place] [address] Nurse Practitioner Family Practice 03/11/23 documented as of this encounter
--- OUTSIDE RECORDS SUMMARY | 2025-02-20 17:03 | XMS_ITS | Clinical Summary ---
Author Organization [facility] Address [address] [place] [address] Care Team Providers Care Drafting Engineer Name Role Phone Molly Figueroa MD Primary Care Provider Reena Solitario BLASTING CAP ASSEMBLER Unavailable [phone] Leana Luna BLASTING CAP ASSEMBLER Unavailable [phone] Allergies Active Allergy Reactions Criticality Noted [...] 0 10/09/2016 AMBER (generalized anxiety disorder) 10/09/2016 [id number] spots 08/29/2015 Fibromyalgia 05/18/2015 Vitamin D deficiency [...] 04/16/2007 Surgical History Surgery Date Site/Laterality Comments [facility] ARTHRD ANT INTERBODY MIN DSC LUMBAR Lumbar Vertebral Fusion - (Added by TW Conv) [facility] ARTHRD ANT INTERBODY MIN DSC CRV BELOW C2 Cervical Vertebral Fusion - (Added by TW Conv) [facility] CHOLECYSTECTOMY Cholecystectomy - (Added by TW Conv) GASTRIC BYPASS High Gastric Bypass - (Added by TW Conv) [facility] ARTHROSCOPY KNEE W/MENISCUS RPR MEDIAL/LATERAL Knee Arthroscopy With Lateral Meniscus Repair - (Added by TW Conv) BACK SURGERY Back Surgery - (Added by TW Conv) [facility] NEUROPLASTY &/TRANSPOS MEDIAN NRV CARPAL TUNNE Neuroplasty [...] Father Jesus ECandis Scherff Vision loss Father Jessu Hilliard Scherff Arthritis Mother Anais Hewitt (Mother) [...] on file Legal Sex Female 1:19 PM COTTON CLASSER Gender Identity Not on file Sexual Orientation [...] Most Recently Relevant to Health Maintenance Insurance [facility] Advance Directives For more information, please contact: [phone] * Full Code (Latest Code Status on File) Date Activated Date Inactivated Comments 08/17/2021 9:30 AM 08/18/2021 4:36 AM Care Teams Drafting Engineer Relationship Specialty Start Date End Date Molly Figueroa MD PCP - General Family Practice 08/29/22 Reena Solitario NP [address] [place] [address] Nurse Practitioner Psychiatry 10/26/22 Leana Luna NP [address] [place] [address] Nurse Practitioner Family Practice 03/11/23
--- NOTE | 2025-02-20 17:50 | ADMGEN ---
This patient, Andra Ross, was admitted to 3 [facility] Surg Room 312-01. Patient/family oriented to hospital policies and general routines including ID bracelet, bed and alarms, visiting hours, pain management, procedures, bathroom and other care routines, personal items, smoking policy, room service/diet, and visiting hours. Information on how to activate the Rapid Response Team has been discussed. Patient/Family are encouraged to report perceived risks to care and to ask questions if they do not understand what they are told or what they should do.
--- NOTE | 2025-02-20 17:55 | P.HP_ITS ---
H&P: HPI History of Present Illness Date/Time: 02/20/25 17:55 Chief Complaint: Fatigue, Confusion Narrative: 64 y/o F with PMH of fibromyalgia, diabetic gastroparesis, anxiety/depression, hypertension, DM, and anemia presents here with transient fatigue, confusion, and garbled speech. The patient presents here from home via EMS for further evaluation of transient neurological deficits. She reports onset of fatigue, confusion, and garbled speech at 2:00 p.m. today (02/20). LNK was on Saturday (02/19), unable to provide a specific time. She denied accompanying focal weakness, focal numbness, vision changes, or dizziness. provided collateral information and reported she was acting very confused and had garbled speech prior to EMS arrival. EMS report no focal deficits noted on their exam and at the patient was answering questions and following commands. Patient confirms all her symptoms resolved. She denies previous history of stroke or TIA. Of note, the patient was diagnosed with a broken left hand on 02/16. She had a splint applied and was discharged with instructions to follow-up with an orthopedist. The patient however discontinued her splint stating that it was uncomfortable. Initial VS at presentation: 98? F, HR 93, R 16, 188/76, and 97% on RA. ED workup showed: WBC 12.6, hemoglobin 11.3, normal coags, potassium 3.1, creatinine 0.51 and GFR >60, glucose 141, initial troponin negative. Head CT and CXR were unremarkable. Head/neck CTA showed a questionable 70% stenosis of the origin of the right internal carotid artery versus volume averaging. Review of Systems Review of Systems: All systems reviewed & are unremarkable except as noted in HPI and below [facility] Past Medical History Medical History (Updated 02/20/25 @ 21:50 by Makeda Mcgovern APRN) Anxiety Diabetes Anemia Ankylosing spondylitis Preoperative clearance History of miscarriage x 1 Fibromyalgia Diabetic gastroparesis Major depressive disorder, recurrent, moderate Metabolic syndrome Other obesity due to excess calories Essential (primary) hypertension Primary insomnia Intervertebral disc degeneration (~2001) Surgical History Surgical History (Updated 02/20/25 @ 18:00 by Makeda Mcgovern APRN) History of bilateral carpal tunnel release History of dilatation and curettage History of left knee surgery meniscus tear History of cholecystectomy (~12/04/11) History of lumbar discectomy (~1999) History of hysterectomy, supracervical (~03/05/06) History of gastric bypass (~02/02/09) History of lumbar discectomy (~07/05/09) History of lumbar discectomy (~07/05/10) History of lumbar fusion (~09/05/13) S/P cervical spinal fusion (~03/05/14) Family History Family History Mother Hypertension Vascular disease Cerebrovascular accident Dementia Father Brain cancer Other Breast cancer Maternal niece Ovarian cancer Paternal cousin Other Family history of malignant neoplasm of breast Family history of malignant neoplasm of ovary No family history of malignant neoplasm Social History Social History Smoking status: Never smoker Tobacco type: cigarettes Second hand tobacco smoke exposure: No Alcohol intake: never Substance use: never Substance use type: does not use Do You Feel Safe in your Home?: Yes Lack of Transportation: No Lack of Food: Never True Current Housing: I Have Housing Concerned About Future Housing: No Difficulty Paying Gas/Electric Bills: No Difficulty Paying for Meds: No Currently Unemployed: No Education: Master's Degree or Higher Difficulty w/ Childcare or Family Care: No Living arrangements: with family 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 Gender identity (if verbalized by the patient): Female Sexual Orientation (if Verbalized by the Patient): Straight or Heterosexual Spiritual care concerns: No Meds Home Medications and Allergies Home Medications ?Medication ?Instructions ?Recorded ?Confirmed ?Type cetirizine 10 mg tablet (Zyrtec) 10 mg PO DAILY PRN Allergy Symptoms 07/03/19 02/20/25 History folic acid 1 mg tablet 1 mg PO DAILY 10/03/23 02/20/25 History golimumab 12.5 mg/mL intravenous IV 06/03/24 12/23/24 History solution (Simponi ARIA) methotrexate sodium 2.5 mg tablet 2.5 mg PO WEEKLY 09/25/24 02/20/25 History duloxetine 60 mg capsule,delayed 60 mg PO DAILY #90 caps 10/05/24 02/20/25 Rx release (Cymbalta) spironolactone 25 mg tablet See Rx Instructions .Route 11/19/24 02/20/25 Rx .COMPLEX #90 tabs metoprolol tartrate 50 mg tablet See Rx Instructions .Route 11/22/24 02/20/25 Rx .COMPLEX #180 tabs semaglutide (weight loss) 2.4 2.4 mg (0.75 mL) subcut WEEKLY #3 12/02/24 02/20/25 Rx mg/0.75 mL subcutaneous pen mL injector (Ksenia) zolpidem 10 mg tablet 10 mg PO QHS #30 tabs 12/21/24 02/20/25 Rx meloxicam 7.5 mg tablet 7.5 mg PO BID PRN pain #30 tabs 12/23/24 02/20/25 Rx baclofen 20 mg tablet 20 mg PO TID PRN muscle spasm #60 02/15/25 02/20/25 Rx tabs albuterol sulfate 90 mcg/actuation 2 puff inhalation Q4H PRN 02/17/25 02/20/25 R x aerosol inhaler (Ventolin HFA) bronchospasm #8.5 grams trazodone 100 mg tablet 100 mg PO QHS 02/20/25 02/20/25 History Allergies Allergy/AdvReac Type Severity Reaction Status Date / Time adhesive tape Allergy Unknown BLISTER Verified 02/20/25 17:19 prednisone AdvReac Intermediate edema Verified 02/20/25 17:19 Vital Signs Vital Signs - 24 hr 02/20/25 16:12 02/20/25 16:12 02/20/25 16:57 Temperature 98.0 F Pulse Rate 93 92 Respiratory Rate 16 18 20 Blood Pressure 188/76 H 188/76 H Pulse Oximetry 97 99 98 02/20/25 17:18 Temperature Pulse Rate 79 Respiratory Rate 16 Blood Pressure 148/99 H Pulse Oximetry 97 Exam Const: General: comfortable and no acute distress Other: , female, nontoxic appearance HENMT: Face/Nose/Sinus: Normal nares present Mouth: Yes moist mucous membranes Eyes: General: appearance normal, both eyes and all related structures Sclera: sclerae normal Pupils: Equal, round and reactive pupils present EOM: EOMs intact bilaterally Resp: Effort & Inspection: normal respiratory effort Auscultation: clear to auscultation bilaterally Cardio: Rate: regular rate Rhythm: regular rhythm Other: S1-S2 present without murmur, rub, ectopy GI: Other: Abdomen soft, nondistended, nontender. Normoactive bowel sounds in all quadrants. Skin: Wounds: no wounds Other: Mild erythema and edema to the left hand. Neuro: Speech: normal speech Motor exam (neuro): 5/5 motor strength present throughout Sensory Exam: normal sensation Other: A&O x4 Extrem: General: normal to inspection Psych: Mental Status: mental status grossly normal Affect: normal affect Other: Good insight judgment, pleasant H&P: Results Labs Labs: Short CBC 02/20/25 Range/Units 16:07 WBC 12.6 H (4.5-10.0) K/mm3 Hgb 11.3 L (12.0-15.0) g/dL Hct 36.7 L (37.0-47.0) % Plt Count 143 L (150-375) k/mm3 BMP 02/20/25 02/20/25 15:50 16:07 Sodium 139 Potassium 3.1 L Chloride 106 Carbon Dioxide 23 BUN 11 Creatinine 0.60 L 0.51 L Glucose 141 H Calcium 9.0 Cardiac Enzymes 02/20/25 Range/Units 16:07 Troponin I < 0.012 (0.000-0.034) ng/mL Liver Function 02/20/25 Range/Units 16:07 Total Bilirubin 0.5 (0.2-1.3) mg/dL AST 45 H (14-36) U/L ALT 32 (6-35) U/L Alkaline Phosphatase 75 (38-126) U/L Albumin 4.3 (3.5-5.1) g/dL Assessment and Plan Assessment and plan (1) TIA (transient ischemic attack): Code(s): G45.9 - Transient cerebral ischemic attack, unspecified Status: Acute Assessment and Plan: New deficits of fatigue and garbled speech with onset around 2:00 p.m. on 02/20 with resolution prior to arrival. Last known well on 02/19. - admission for observation and telemetry - not candidate for thrombolytics or thrombectomy as the patient's symptoms have resolved and no LVO on CTA - CXR: clear lungs - Head CT: No significant abnormality seen. - CTA: Questionable 70% stenosis of the origin of the right internal carotid artery versus volume averaging. - neurology consulted - brain MRI w/wo ordered - echo w/Bubble ordered - neuro checks Q4 - monitor daily labs. check lipid panel, A1C, and UA - as the patient's symptoms have resolved, will defer initiation of Atorvastatin, Plavix, and ASA to neurology's discretion - consider 30 day event monitoring at discharge (2) Diabetes: Qualifiers: Diabetes mellitus type: type 2 Diabetes mellitus assistant terminal manager insulin use: without assistant terminal manager use Diabetes mellitus complication status: without complication Qualified Code(s): E11.9 - Type 2 diabetes mellitus without complications Code(s): E11.9 - Type 2 diabetes mellitus without complications Status: Acute Assessment and Plan: - hypoglycemia protocol - POC blood glucose ACHS - home medication: hold Wegovy - correct regimen ordered - high dose TIDWM, based off BMI - A1C 6.2% in 2023, update (3) Essential (primary) hypertension: Code(s): I10 - Essential (primary) hypertension Status: Acute Assessment and Plan: - chronic, currently 148/99 - continue home medications: Metoprolol, spironolactone - monitor Plan Mild hypokalemia noted at 3.1, initial repletion with 40 p.o. of KCl. Recheck in a.m.. Diet: Diabetic GI Prophylaxis: N/a DVT Prophylaxis: IV fluids: None Lines/Tubes: Peripheral IV Code Status: Full code Quality VTE Prophylaxis VTE prophylaxis: mechanical ordered Hospitalist MIPS Advance Care Plan I have confirmed that the patient's Advanced Care Plan is present, code status is documented, or surrogate decision maker is listed in patient medical record.: Yes Medication Reconciliation I have utilized all available resources to obtain, update and review the patients current medications (includes all prescriptions, OTC, herbals, cannabis, and nutritional supplements).: Yes
--- OUTSIDE RECORDS SUMMARY | 2025-02-20 18:24 | XMS_ITS | Clinical Summary ---
Author Organization [facility] Address [address] [place] [address] Care Team Providers Care Apparel Patternmaker Name Role Phone Javi Meeks MD Primary Care Provider [phone] Source Comments [facility],non-owned Affiliates and Associated Physician Practices is amultiple site organization consisting of ambulatory clinics and hospital sitesin [place], [place], [place] and [place]. This disclosure is being madepursuant to the Care Everywhere program and may not contain all information available regarding this patient. Last updated 18.[facility] Active Problems Problem Noted Date Diagnosed Date Epidermal cyst 08/29/2015 Melanocytic nevus 08/29/2015 Other melanin hyperpigmentation 08/29/2015 Personal history of other malignant neoplasm of skin 08/29/2015 Other specified follicular disorders 08/29/2015 [id number]-qq-[id number] spots 08/29/2015 Fibromyalgia 05/18/2015 Family History Medical [...] on file Legal Sex Female 6:02 PM SOCK LINING STITCHER Gender Identity Not on file Sexual Orientation Not on file Last Filed Vital Signs Vital Sign Reading Time Taken Comments Blood Pressure 136/72 06/22/2015 8:42 AM SOCK LINING STITCHER Pulse 74 06/22/2015 8:42 AM SOCK LINING STITCHER Temperature 36.2 C (97.1 F) 06/22/2015 8:42 AM SOCK LINING STITCHER Respiratory Rate - - Oxygen Saturation 98% 06/22/2015 8:42 AM SOCK LINING STITCHER Inhaled Oxygen Concentration - - Weight 91.5 kg (201 lb 12.8 oz) 06/22/2015 8:42 AM SOCK LINING STITCHER Height 162.6 cm (5' 4) 06/22/2015 8:42 AM SOCK LINING STITCHER Body Mass Index 34.64 06/22/2015 8:42 AM SOCK LINING STITCHER Plan of Treatment Health Maintenance Due Date [...] Antibody <0.1 0.0 - 0.9 s/co ratio [facility] Comment: Negative: < 0.8 Indeterminate: 0.8 - 0.9 Positive: > 0.9 In order to reduce the incidence of a false positive result, the CDC recommends that all s/co ratios between 1.0 and 10.9 be confirmed by a more specific supplemental or PCR testing. [facility] offers HCV Ab w/Reflex to Verification test #[id number]. Blood specimen (specimen) BLOOD SPECIMEN / Unknown 05/18/2015 1:36 PM CDT 05/18/2015 4:06 PM CDT Narrative [facility]) - 05/20/2015 7:18 AM CDT Performed at: - [facility] [address] [place], [place] [id number] Blocking Machine Tender: Santiago Jaime PhD, Phone: [phone] Gayla Abreu MD LAB - CHEMISTRY OR DERABLES Edited Result - Final [facility] [address] [place] [address], [facility] from Last 3 Months or Most Recently Relevant to Health Maintenance Insurance [facility] Care Teams Apparel Patternmaker Relationship Specialty Start Date End Date Javi Meeks MD [address] [place] [address] PCP - General 05/16/18
--- OUTSIDE RECORDS SUMMARY | 2025-02-20 18:24 | XMS_ITS | Encounter Summary ---
Author Organization [facility] Address [address] [place] [address] Phone Care Team Providers Care Director Of Strategic Partnerships Name Role Phone Javi Meeks MD Primary Care Provider [phone] Jose Panda MD Primary Care Provider [phone] Unknown, Notinfile Primary Care Provider Unavail able Molly Figueroa MD Primary Care Provider Reena Solitario SOFTWARE QA MANAGER Unavailable [phone] Leana Luna SOFTWARE QA MANAGER Unavailable [phone] Encounter Details Date Type Department Care Team (Late st Contact Info) Description 03/26/2022 Telephone [facility] Orthopaedic Surgery [address] [place] [address] Jassi Rene MD [address] [facility] [address] [place], [place] [id number] Social History Tobacco Use Types Packs/Day Years Used Date Smoking Tobacco: Never Smokeless Tobacco: Never Alcohol Use Standard Drinks/Week Comments Never 0 (1 standard drink = 0.6 oz pur e alcohol) Comments No Sex and Gender Information Value Date Recorded Sex Assigned at Not on file Legal Sex Female 1:19 PM SALES REPRESENTATIVE PUBLICATIONS Gender Identity Not on file Sexual Orientation Not on file documented as of this encounter Plan of Treatment Not on file documented as of this encounter Visit Diagnoses Not on filedocumented in this encounter Care Teams Director Of Strategic Partnerships Relationship Specialty Start Date End Date Javi Meeks MD [address] [place] [address] PCP - General 10/15/16 06/03/22 Jose Panda MD [address] [place] [address] PCP - General Family Medicine 06/04/22 07/10/22 Unknown, Notinfile PCP - General 07/11/22 08/28/22 Molly Figueroa MD PCP - General Family Practice 08/29/22 Reena Solitario NP [address] [place] [address] Nurse Practitioner Psychiatry 10/26/22 Leana Luna NP [address] [place] [address] Nurse Practitioner Family Practice 03/11/23 documented as of this encounter
--- OUTSIDE RECORDS SUMMARY | 2025-02-20 18:24 | XMS_ITS | Referral Summary ---
Author Organization [facility] Address [address] [place] [id number] Care Team Providers Care Cable Rigger Name Role Phone Molly Figueroa MD Primary Care Provider Reena Solitario PATIENT SERVICES ASSISTANT Unavailable [phone] Leana Luna PATIENT SERVICES ASSISTANT Unavailable [phone] Allergies Active Allergy Reactions Criticality Noted [...] 0 10/09/2016 AMBER (generalized anxiety disorder) 10/09/2016 [id number] spots 08/29/2015 Fibromyalgia 05/18/2015 Vitamin D deficiency [...] on file Legal Sex Female 1:19 PM IMPORTER EXPORTER Gender Identity Not on file Sexual Orientation [...] Most Recently Relevant to Health Maintenance Insurance [facility] Advance Directives For more information, please contact: [phone] * Full Code (Latest Code Status on File) Date Activated Date Inactivated Comments 08/17/2021 9:30 AM 08/18/2021 4:36 AM Care Teams Cable Rigger Relationship Specialty Start Date End Date Molly Figueroa MD PCP - General Family Practice 08/29/22 Reena Solitario NP [address] [place] [address] Nurse Practitioner Psychiatry 10/26/22 Leana Luna NP [address] [place] [address] Nurse Practitioner Family Practice 03/11/23
--- OUTSIDE RECORDS SUMMARY | 2025-02-20 18:24 | XMS_ITS | Clinical Summary ---
Author Organization [facility] Address [address] [place] [id number] Care Team Providers Care Accelerator Systems Director Name Role Phone Molly Figueroa MD Primary Care Provider Reena Solitario DIGITAL PRODUCT SPECIALIST Unavailable [phone] Leana Luna DIGITAL PRODUCT SPECIALIST Unavailable [phone] Allergies Active Allergy Reactions Criticality Noted [...] 0 10/09/2016 AMBER (generalized anxiety disorder) 10/09/2016 [id number] spots 08/29/2015 Fibromyalgia 05/18/2015 Vitamin D deficiency [...] on file Legal Sex Female 1:19 PM INTERNIST Gender Identity Not on file Sexual Orientation [...] Most Recently Relevant to Health Maintenance Insurance [facility] H[facility]/PPO Address: [address] [place] [id number] [facility] H[facility]/PPO Address: [address] [place] [phone] [facility] H[facility]/PPO Address: [facility] [address] [place] [address] Advance Directives For more information, please contact: [phone] * Full Code (Latest Code Status on File) Date Activated Date Inactivated Comments 08/17/2021 9:30 AM 08/18/2021 4:36 AM Care Teams Accelerator Systems Director Relationship Specialty Start Date End Date Molly Figueroa MD PCP - General Family Practice 08/29/22 Reena Solitario NP [address] [place] [address] Nurse Practitioner Psychiatry 10/26/22 Leana Luna NP [address] [place] [address] Nurse Practitioner Family Practice 03/11/23
[2025-02-21] VITALS: BP 143/67; PULSE 80; PULSE 82; RESP 20; TEMP 36.4; O2SAT 95
[2025-02-21 00:49] VITALS: BP 143/67; PULSE 80; RESP 18; TEMP 36.4; O2SAT 95
[2025-02-21 01:17] LABS: Add Urine Microscopic? YES; Appearance Urine Clear (Clear); Glucose Urine UA Negative (Negative); Leukocyte Esterase Ur 1+ LEU/UL (Negative); Need Manual Microscopic Reviewed; Nitrate Urine Positive (Negative); Non Pathogenic Casts 0-2; Specific Grav Ur 1.011 (1.001-1.035)
[2025-02-21 04:00] VITALS: BP 116/58; PULSE 75; PULSE 77; RESP 20; TEMP 36.4; O2SAT 100
[2025-02-21 05:38] LABS: Hematocrit 35.8 % (37.0-47.0); Hemoglobin 10.7 g/dL (12.0-15.0); Mean Corpuscular HGB Conc 29.9 g/dl (32-36); Mean Corpuscular Hemoglobin 28.6 pg (26-34); Mean Corpuscular Volume 95.7 fl (80-100); Platelet Count Result 126 k/mm3 (150-375); Red Blood Count 3.74 M/mm3 (4.2-5.4); White Blood Count 10.0 K/mm3 (4.5-10.0)
[2025-02-21 05:51] LABS: Hemoglobin A1C 6.0 % (<5.7)
[2025-02-21 05:59] LABS: Anion Gap 7 mmol/L (4-12); Blood Urea Nitrogen 10 mg/dL (7-17); Calcium 8.8 mg/dL (8.4-10.2); Carbon Dioxide 24 mmol/L (22-30); Chloride 109 mmol/L (98-107); Cholesterol 132 mg/dL (0-200); Estimated CRCL calculation 125 ml/min; Estimated Glomerular Filt Rate > 60; Glucose 114 mg/dL (65-110); HDL Direct 45 mg/dL; Potassium 3.5 mmol/L (3.4-5.0); Sodium 140 mmol/L (137-145); Triglycerides 84 mg/dL (<150)
[2025-02-21 06:17] LABS: Anisocytosis 1+; Band Neutrophils Percent 1 % (0-6); Giant Platelets Present; Lymphocytes Absolute Manual 2.40 K/mm3 (1.1-4.5); Lymphocytes Percent Manual 24.0 % (18-44); Metamyelocytes Percent 1 %; Monocytes Absolute Manual 1.60 K/mm3 (0.1-0.90); Monocytes Percent Manual 16 % (3-9); Neutrophils Absolute Manual 5.90 K/mm3 (1.3-6.7); Neutrophils Percent Manual 58 % (46-73); Ovalocytes 1+; Poikilocytosis 1+; Total Cells Counted 100
[2025-02-21 06:18] LABS: Schistocytes 1+
[2025-02-21 06:19] LABS: Burr Cells 1+; Crenated RBC 1+; Smudge Cells PRESENT
[2025-02-21 08:00] VITALS: BP 129/59; PULSE 79; PULSE 81; RESP 16; TEMP 35.7; O2SAT 100
[2025-02-21 08:59] VITALS: PULSE 80
[2025-02-21] MEDS: SPIRONOLACTONE 25 MG TABLET PO (08:59)
[2025-02-21] MEDS: DULoxetine HCL 60 MG CAPSULE.DR PO (08:59)
[2025-02-21] MEDS: FOLIC ACID 1 MG TABLET PO (08:59)
[2025-02-21] MEDS: METOPROLOL TARTRATE 50 MG TAB PO (08:59)
--- NOTE | 2025-02-21 09:32 | P.CONNEU_ITS ---
Consult date: 02/21/25 HPI: Andra Ross is a 64 year old female admitted to the hospital through the emergency room for possible TIA. She was laying in bed at 2:00 p.m. when she started to feel very tired, she tried to call her , her speech was very garbled could not be understood, at that stage call 911 but by that time symptomatology was starting to resolve, patient had taken her baclofen at 11:00 a.m. in the morning she has had broken hand earlier in the week she had a splint on but she has no other additional symptomatology when she came to the ER. Her medications included methotrexate sodium 2.5mg p.o. weekly, she has ongoing history of diabetes mellitus with gastroparesis, metabolic syndrome, fibromyalgia and has undergone multiple surgeries on her lower back. On initial exam in the emergency room her exam but somewhat abnormal because of the impaired left eye movements from the previous closed head injury as a child. Her vital signs were with blood pressure 188/76, CBC was normal with platelet count on the lower side 143, BMP was normal, mast scan was normal, admitted to the hospital for the transient neurological symptomatology. Continued on methotrexate as such along with the other medication particularly diazepam, baclofen, hydrocodone, her hand x-ray revealed fracture of the base of the 2nd 3rd and 4th fingers proximal fell injuries, head CT scan was negative for the bleed or hydrocephalus, chest x-ray negative, but head and neck CTA revealed possible 70% stenosis of the origin of the right internal carotid artery. Review of Systems 2 Review of Systems: All systems reviewed & are unremarkable except as noted in HPI and below PMFSH Past Medical History Medical History Anxiety Diabetes Anemia Ankylosing spondylitis Preoperative clearance History of miscarriage x 1 Fibromyalgia Diabetic gastroparesis Major depressive disorder, recurrent, moderate Metabolic syndrome Other obesity due to excess calories Essential (primary) hypertension Primary insomnia Intervertebral disc degeneration (~2001) Surgical History Surgical History History of bilateral carpal tunnel release History of dilatation and curettage History of left knee surgery meniscus tear History of cholecystectomy (~12/04/11) History of lumbar discectomy (~1999) History of hysterectomy, supracervical (~03/05/06) History of gastric bypass (~02/02/09) History of lumbar discectomy (~07/05/09) History of lumbar discectomy (~07/05/10) History of lumbar fusion (~09/05/13) S/P cervical spinal fusion (~03/05/14) Family History Family History Mother Hypertension Vascular disease Cerebrovascular accident Dementia Father Brain cancer Other Breast cancer Maternal niece Ovarian cancer Paternal cousin Other Family history of malignant neoplasm of breast Family history of malignant neoplasm of ovary No family history of malignant neoplasm Social History Social History Smoking status: Never smoker Tobacco type: cigarettes Second hand tobacco smoke exposure: No Alcohol intake: never Substance use: never Substance use type: does not use Do You Feel Safe in your Home?: Yes Lack of Transportation: No Lack of Food: Never True Current Housing: I Have Housing Concerned About Future Housing: No Difficulty Paying Gas/Electric Bills: No Difficulty Paying for Meds: No Currently Unemployed: No Education: Master's Degree or Higher Difficulty w/ Childcare or Family Care: No Living arrangements: with family 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 Gender identity (if verbalized by the patient): Female Sexual Orientation (if Verbalized by the Patient): Straight or Heterosexual Spiritual care concerns: No Meds Home Medications and Allergies Home Medications ?Medication ?Instructions ?Recorded ?Confirmed ?Type cetirizine 10 mg tablet (Zyrtec) 10 mg PO DAILY PRN Allergy Symptoms 07/03/19 02/20/25 History folic acid 1 mg tablet 1 mg PO DAILY 10/03/23 02/20/25 History golimumab 12.5 mg/mL intravenous IV 06/03/24 12/23/24 History solution (Simponi ARIA) methotrexate sodium 2.5 mg tablet 2.5 mg PO WEEKLY 09/25/24 02/20/25 History duloxetine 60 mg capsule,delayed 60 mg PO DAILY #90 caps 10/05/24 02/20/25 Rx release (Cymbalta) spironolactone 25 mg tablet See Rx Instructions .Route 11/19/24 02/20/25 Rx .COMPLEX #90 tabs metoprolol tartrate 50 mg tablet See Rx Instructions .Route 11/22/24 02/20/25 Rx .COMPLEX #180 tabs semaglutide (weight loss) 2.4 2.4 mg (0.75 mL) subcut WEEKLY #3 12/02/24 02/20/25 Rx mg/0.75 mL subcutaneous pen mL injector (Wegovy) zolpidem 10 mg tablet 10 mg PO QHS #30 tabs 12/21/24 02/20/25 Rx meloxicam 7.5 mg tablet 7.5 mg PO BID PRN pain #30 tabs 12/23/24 02/20/25 Rx baclofen 20 mg tablet 20 mg PO TID PRN muscle spasm #60 02/15/25 02/20/25 Rx tabs albuterol sulfate 90 mcg/actuation 2 puff inhalation Q4H PRN 02/17/25 02/20/25 Rx aerosol inhaler (Ventolin HFA) bronchospasm #8.5 grams trazodone 100 mg tablet 100 mg PO QHS 02/20/25 02/20/25 History Allergies Allergy/AdvReac Type Severity Reaction Status Date / Time adhesive tape Allergy Unknown BLISTER Verified 02/20/25 17:19 prednisone AdvReac Intermediate edema Verified 02/20/25 17:19 Vital Signs Vital Signs - 24 hr 02/20/25 16:12 02/20/25 16:12 02/20/25 16:57 Temperature 36.7 C Pulse Rate 93 92 Respiratory Rate 16 18 20 Blood Pressure 188/76 H 188/76 H Pulse Oximetry 97 99 98 Oxygen Delivery 02/20/25 17:18 02/20/25 18:00 02/20/25 18:06 Temperature 36.7 C Pulse Rate 79 92 87 Respiratory Rate 16 16 Blood Pressure 148/99 H 149/87 H Pulse Oximetry 97 100 Oxygen Delivery 02/20/25 18:06 02/20/25 20:00 02/20/25 20:00 Temperature 36.9 C Pulse Rate 76 80 Respiratory Rate 18 18 Blood Pressure 138/77 Pulse Oximetry 99 95 Oxygen Delivery Room Air Room Air 02/20/25 20:00 02/20/25 21:13 02/20/25 21:51 Temperature 36.9 C Pulse Rate 88 77 Respiratory Rate 20 Blood Pressure 146/83 H Pulse Oximetry 99 100 Oxygen Delivery Room Air 02/21/25 00:00 02/21/25 00:00 02/21/25 00:49 Temperature 36.4 C L 36.4 C L Pulse Rate 80 82 80 Respiratory Rate 20 18 Blood Pressure 143/67 H 143/67 H Pulse Oximetry 95 95 Oxygen Delivery 02/21/25 04:00 02/21/25 04:00 02/21/25 08:00 Temperature 36.4 C 35.7 C L Pulse Rate 75 77 79 Respiratory Rate 20 16 Blood Pressure 116/58 L 129/59 L Pulse Oximetry 100 100 Oxygen Delivery 02/21/25 08:59 Temperature Pulse Rate 80 Respiratory Rate Blood Pressure Pulse Oximetry Oxygen Delivery Exam 2 Narrative: Exam today revealed her to be awake alert cooperative in no obvious acute distress, head normocephalic with no cranial bruit, ear nose throat examination normal, neck supple with no meningeal signs, no cervical bruit, no thyromegaly ,no lymphadenopathy, heart regular with no murmur, lungs clear to auscultation with no rhonchi or crepitations, abdomen is soft nontender with normal bowel sounds, neurologically she is awake alert oriented in being in the hospital ,her speech is not dysphasic, not dysarthric, not dysphonic, pupils round regular ,sequeira of the vision full in all 4 quadrants, extraocular movements full with no nystagmus, facial sensation intact ,face symmetrical, uvula midline ,motor examination revealed her to have fairly normal and symmetrical strength in upper and lower extremity, , plantar responses are down, she had decreased sensation distally and there is no evidence of cerebellar dysfunction. Results Labs 02/21/25 05:18 02/21/25 05:18 Labs: Short CBC 02/20/25 02/21/25 Range/Units 16:07 05:18 WBC 12.6 H 10.0 (4.5-10.0) K/mm3 Hgb 11.3 L 10.7 L (12.0-15.0) g/dL Hct 36.7 L 35.8 L (37.0-47.0) % Plt Count 143 L 126 L (150-375) k/mm3 BMP 02/20/25 02/20/25 02/21/25 15:50 16:07 05:18 Sodium 139 140 Potassium 3.1 L 3.5 Chloride 106 109 H Carbon Dioxide 23 24 BUN 11 10 Creatinine 0.60 L 0.51 L 0.49 L Glucose 141 H 114 H Calcium 9.0 8.8 Cardiac Enzymes 02/20/25 Range/Units 16:07 Troponin I < 0.012 (0.000-0.034) ng/mL Liver Function 02/20/25 Range/Units 16:07 Total Bilirubin 0.5 (0.2-1.3) mg/dL AST 45 H (14-36) U/L ALT 32 (6-35) U/L Alkaline Phosphatase 75 (38-126) U/L Albumin 4.3 (3.5-5.1) g/dL Urine 02/21/25 Range/Units 00:55 Urine Color Yellow (Yellow) Urine Appearance Clear (Clear) Urine pH 7.0 (5.0-9.0) Ur Specific [place] 1.011 (1.001-1.035) Urine Protein Negative (Negative) mg/dL Urine Glucose (UA) Negative (Negative) mg/dL Attestation Student Attestation 1. TIA 2. Diabetes mellitus with neuropathy number 3. Possible side effect from the medication 4. Hand injury for which she is being followed by the physician. 5. Questionable 70% stenosis of the origin of the right internal carotid artery, will need the MRI of the brain and echocardiogram as well and vena clarification 70% stenosis 6 ongoing history of anxiety with depression For which she is receiving duloxetine trazodone and p.r.n. medication.
[2025-02-21] MEDS: cefTRIAXone 1 GM in SODIUM CHLORIDE 0.9% IV 50 ML 100 ML IVPB (10:23)
[2025-02-21 12:00] VITALS: BP 131/70; PULSE 85; RESP 14; TEMP 35.8; O2SAT 98
[2025-02-21] MEDS: BACLOFEN 10 MG TABLET 20 MG PO (15:24)
--- NOTE | 2025-02-21 18:27 | P.DS_ITS ---
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 The patient presents here from home via EMS for further evaluation of transient neurological deficits. She reports onset of fatigue, confusion, and garbled speech at 2:00 p.m. today (02/20). LNK was on Saturday (02/19), unable to provide a specific time. She denied accompanying focal weakness, focal numbness, vision changes, or dizziness. provided collateral information and reported she was acting very confused and had garbled speech prior to EMS arrival. EMS report no focal deficits noted on their exam and at the patient was answering questions and following commands. Patient confirms all her symptoms resolved. She denies previous history of stroke or TIA. Of note, the patient was diagnosed with a broken left hand on 02/16. She had a splint applied and was discharged with instructions to follow-up with an orthopedist. The patient however discontinued her splint stating that it was uncomfortable. In the ED: Initial VS at presentation: 98? F, HR 93, R 16, 188/76, and 97% on RA. ED workup showed: WBC 12.6, hemoglobin 11.3, normal coags, potassium 3.1, creatinine 0.51 and GFR >60, glucose 141, initial troponin negative. Head CT and CXR were unremarkable. Head/neck CTA showed a questionable 70% stenosis of the origin of the right internal carotid artery versus volume averaging. Hospital course: Patient was admitted to the medical unit for furhter evaluation of TIA symptoms which had resolved prior to admission. Patient had a MRI brain and brain stem with no intracranial findings and Neurology was consulted. Patient also had a ECHO with bubble study ordered but there was no or scrub tech available that day. Patient was provided the option to stay for observation and echo or to discharge with order for Echo outpatient since she had no further symptoms. Patient requested to be discharged home and would return if symptoms returned. Patient was provided with order as well as request from primary for a outpatient event monitor. No further recommendations from neurology. The CTA did show possible 70% stenosis of the carotid and advised to follow-up with vascular outpatient for close monitoring. Patient ambulatory oin own and was discharged to home. Status at Discharge Functional status at discharge: independent ambulation Overall status at discharge: patient is back to baseline Time Spent with Patient Time attestation: Total time spent providing and/or coordinating discharge services: Time spent: Greater than 30 minutes Exam Narrative: mild erythema and edema to the left hand. otherwise benign exam. Const: General: comfortable and no acute distress Other: , female, nontoxic appearance HENMT: Face/Nose/Sinus: Normal nares present Mouth: Yes moist mucous membranes Eyes: General: appearance normal, both eyes and all related structures Sclera: sclerae normal Pupils: Equal, round and reactive pupils present EOM: EOMs intact bilaterally Resp: Effort & Inspection: normal respiratory effort Auscultation: clear to auscultation bilaterally Cardio: Rate: regular rate Rhythm: regular rhythm Other: S1-S2 present without murmur, rub, ectopy GI: Other: Abdomen soft, nondistended, nontender. Normoactive bowel sounds in all quadrants. Skin: Wounds: no wounds Other: Mild erythema and edema to the left hand. Neuro: Cranial nerves: Yes Equal, round and reactive pupils present Speech: normal speech Motor exam (neuro): 5/5 motor strength present throughout Sensory Exam: normal sensation Other: A&O x4 Extrem: General: normal to inspection Psych: Mental Status: mental status grossly normal Affect: normal affect Other: Good insight judgment, pleasant DS: Data Data Completed and Pending Labs on day of discharge: Labs from last 24 hours 02/21/25 02/21/25 02/21/25 17:08 11:18 07:24 WBC RBC Hgb Hct MCV MCH MCHC RDW Plt Count MPV Immature Gran % (Auto) Neut % (Auto) Lymph % (Auto) [place] % (Auto) Eos % (Auto) Baso % (Auto) Lymph # (Auto) [place] # (Auto) Eos # (Auto) Baso # (Auto) Abs Immat Gran (auto) Absolute Neuts (auto) Absolute Nucleated RBC Total Counted Neutrophils % (Manual) Band Neutrophils % Lymphocytes % (Manual) Monocytes % (Manual) Metamyelocytes % Nucleated RBC % Abs Neuts (Manual) Abs Lymphs (Manual) Abs Monocytes (Manual) Smudge Cells Platelet Estimate Giant Platelets Poikilocytosis Anisocytosis Ovalocytes [place] Cells Crenated Cell Schistocytes Sodium Potassium Chloride Carbon Dioxide Anion Gap BUN Creatinine Estim Creat Clear Calc Estimated GFR Glucose POC Capillary Glucose 111 H 94 106 H Hemoglobin A1c Calcium Triglycerides Cholesterol LDL Cholesterol Direct HDL Direct Urine Color Urine Appearance Urine pH Ur Specific [place] Urine Protein Urine Glucose (UA) Urine Ketones Ur Blood (Man) Urine Nitrate Urine Bilirubin Urine Urobilinogen Add Ur Microanalysis Leukocyte Esterase Rfl Urine RBC Urine WBC Ur Squamous Epith Cells Urine Bacteria Urine Casts 02/21/25 02/21/25 02/20/25 05:18 00:55 20:48 WBC 10.0 RBC 3.74 L Hgb 10.7 L Hct 35.8 L MCV 95.7 MCH 28.6 MCHC 29.9 L RDW 17.6 H Plt Count 126 L MPV 12.9 H Immature Gran % (Auto) Not Reportable Neut % (Auto) Not Reportable Lymph % (Auto) Not Reportable [place] % (Auto) Not Reportable Eos % (Auto) Not Reportable Baso % (Auto) Not Reportable Lymph # (Auto) Not Reportable [place] # (Auto) Not Reportable Eos # (Auto) Not Reportable Baso # (Auto) Not Reportable Abs Immat Gran (auto) Not Reportable Absolute Neuts (auto) Not Reportable Absolute Nucleated RBC Not Reportable Total Counted 100 Neutrophils % (Manual) 58 Band Neutrophils % 1 Lymphocytes % (Manual) 24.0 Monocytes % (Manual) 16 H Metamyelocytes % 1 Nucleated RBC % Not Reportable Abs Neuts (Manual) 5.90 Abs Lymphs (Manual) 2.40 Abs Monocytes (Manual) 1.60 H Smudge Cells Present Platelet Estimate Decreased Giant Platelets Present Poikilocytosis 1+ Anisocytosis 1+ Ovalocytes 1+ Charlie Cells 1+ Crenated Cell 1+ Schistocytes 1+ Sodium 140 Potassium 3.5 Chloride 109 H Carbon Dioxide 24 Anion Gap 7 BUN 10 Creatinine 0.49 L Estim Creat Clear Calc 125 Estimated GFR > 60 Glucose 114 H POC Capillary Glucose 173 H Hemoglobin A1c 6.0 H Calcium 8.8 Triglycerides 84 Cholesterol 132 LDL Cholesterol Direct 66 HDL Direct 45 Urine Color Yellow Urine Appearance Clear Urine pH 7.0 Ur Specific [place] 1.011 Urine Protein Negative Urine Glucose (UA) Negative Urine Ketones Negative Ur Blood (Man) Trace Urine Nitrate Positive H Urine Bilirubin Negative Urine Urobilinogen 0.2 Add Ur Microanalysis Reviewed Leukocyte Esterase Rfl 1+ H Urine RBC 0-2 Urine WBC 0-5 Ur Squamous Epith Cells None seen Urine Bacteria 4+ H Urine Casts 0-2 02/20/25 18:40 WBC RBC Hgb Hct MCV MCH MCHC RDW Plt Count MPV Immature Gran % (Auto) Neut % (Auto) Lymph % (Auto) [place] % (Auto) Eos % (Auto) Baso % (Auto) Lymph # (Auto) [place] # (Auto) Eos # (Auto) Baso # (Auto) Abs Immat Gran (auto) Absolute Neuts (auto) Absolute Nucleated RBC Total Counted Neutrophils % (Manual) Band Neutrophils % Lymphocytes % (Manual) Monocytes % (Manual) Metamyelocytes % Nucleated RBC % Abs Neuts (Manual) Abs Lymphs (Manual) Abs Monocytes (Manual) Smudge Cells Platelet Estimate Giant Platelets Poikilocytosis Anisocytosis Ovalocytes [place] Cells Crenated Cell Schistocytes Sodium Potassium Chloride Carbon Dioxide Anion Gap BUN Creatinine Estim Creat Clear Calc Estimated GFR Glucose POC Capillary Glucose 135 H Hemoglobin A1c Calcium Triglycerides Cholesterol LDL Cholesterol Direct HDL Direct Urine Color Urine Appearance Urine pH Ur Specific [place] Urine Protein Urine Glucose (UA) Urine Ketones Ur Blood (Man) Urine Nitrate Urine Bilirubin Urine Urobilinogen Add Ur Microanalysis Leukocyte Esterase Rfl Urine RBC Urine WBC Ur Squamous Epith Cells Urine Bacteria Urine Casts Imaging Radiologist's impression: EXAMINATION: MR brain/brain stem wo/w con DATE: 02/21/2025 16:02 INDICATION: TIA workup TECHNIQUE: Magnetic resonance imaging (MRI) of the brain and brainstem was performed without and with 20 mL MultiHance were intravenous contrast. Sequences included sagittal and axial T1-weighted SE, axial diffusion-weighted FS EPI ASSET, axial T2*-weighted GRE, axial T2-weighted FLAIR Propeller, and axial T2- weighted Propeller. Postcontrast axial and coronal T1-weighted SE was obtained. Apparent diffusion coefficient (ADC) maps were created. COMPARISON: 10/22/2014; CTA brain carotid 02/20/2025; CT brain April 1925 FINDINGS: No abnormal restricted diffusion to suggest acute ischemic infarct. No MRI evidence of hemorrhage or extra-axial collection. No suspicious foci of susceptibility to suggest prior intraparenchymal hemorrhage. Scattered foci of white matter hyperintensity, likely representing mild small vessel ischemic disease. Mild generalized parenchymal volume loss. The basilar cisterns are patent. Flow voids are preserved. Paranasal sinuses are within normal limits. Globes and orbital contents are within normal limits. IMPRESSION: No acute intracranial process. Discharge Plan Discharge Attending physician on discharge: Yasmnie Agarwal Consulting providers: Reena Parikh; Greg Montero; Makeda Mcgovern; Geoffrey Rosado; Paulo Nunn; Yaron Kat Discharging Clinician: Reena Parikh Anticipated Discharge Date/Time: 02/21/25 18:17 Patient Disposition: Home Activity: december show Diet: heart healthy Discharge Instructions: 1). TIA * MRI/CT showed no acute stroke * I have included an order for an outpatient Echo with bubble study to evaluate for any shunting * I also encourage primary to order an event monitor outpatient * Your A1C was elevated at 6.0 continue with your Wegovy and recommend a follow- up A1C in 3 months 2). UTI * I have prescribed Augmentin antibiotic for your UTI please complete as indicated even if feeling better Follow-up with ortho as scheduled If symptoms return seek medical attention for evaluation Patient Instructions: Antibiotic Form, Transient Ischemic Attack (DC) Patient Language: Irish Stand Alone Forms: General Discharge Information Follow-up/Referrals: Marquis Mann MD [Primary Care Provider] - 2 Weeks (Will need event monitor outpatient as well as Echo) Discharge Medications: New amoxicillin-pot clavulanate 875-125 mg tablet 1 tablet PO Q12H Qty: 8 0RF Continued folic acid 1 mg tablet 1 mg PO DAILY methotrexate sodium 2.5 mg tablet 2.5 mg PO WEEKLY Patient Comments: took on 02/20/25 Simponi ARIA 12.5 mg/mL solution IV Wegovy 2.4 mg/0.75 mL pen injector 2.4 mg subcut WEEKLY Qty: 3 5RF Patient Comments: Saturday cetirizine [Zyrtec] 10 mg tablet 10 mg PO DAILY PRN (Reason: Allergy Symptoms) meloxicam 7.5 mg tablet 7.5 mg PO BID PRN (Reason: pain) Qty: 30 0RF trazodone 100 mg tablet 100 mg PO QHS duloxetine [Cymbalta] 60 mg capsule,delayed release(DR/EC) 60 mg PO DAILY Qty: 90 1RF spironolactone 25 mg tablet See Rx Instructions .ROUTE .COMPLEX Qty: 90 0RF Dose Instruction: TAKE 1 TABLET BY MOUTH DAILY Rx Instructions: TAKE 1 TABLET BY MOUTH DAILY metoprolol tartrate 50 mg tablet See Rx Instructions .ROUTE .COMPLEX Qty: 180 1RF Dose Instruction: TAKE ONE TABLET BY MOUTH TWICE A DAY Rx Instructions: TAKE ONE TABLET BY MOUTH TWICE A DAY zolpidem 10 mg tablet 10 mg PO QHS Qty: 30 5RF baclofen 20 mg tablet 20 mg PO TID PRN (Reason: muscle spasm) Qty: 60 0RF Rx Instructions: Do not take with cyclobenzaprine albuterol sulfate [Ventolin HFA] 90 mcg/actuation HFA aerosol inhaler 2 puff INHALATION Q4H PRN (Reason: bronchospasm) Qty: 8.5 2RF Other Ambulatory Orders: [place] echo dop bubble study w con (Routine) Timeframe: 1 Week Location: Determined by Patient Ordered By: Reena Parikh Date of admission: 02/20/25 16:59 Primary Care Provider: Marquis Mann Admitting Provider: Mateusz Haney Attending physician on admission: Yasmine Agarwal Condition: Stable Quality VTE Prophylaxis VTE prophylaxis: mechanical ordered Hospitalist MIPS Heart Failure (Exclusion) Patient has history of Heart Transplant or Left Ventricular Assistive Device?: No IF YES, STOP HERE Heart Failure (Qualifier) Patient has current or prior documentation of LVEF less than or equal to 40%, or mod/servere depressed LVSF?: No IF NO, STOP HERE
== END 2025-02-21 19:00 | disposition home or self-care (01) ==
LOC: ANHED 17:01 → ANH3MEDSUR 02-21 08:08
PROVIDERS: Student in an Organized Health Care Education/Training Program; Admitting Provider Internal Medicine; Emergency Provider Emergency Medicine; PCP Family Medicine Adolescent Medicine; Visit Provider Family Medicine
DX: G45.9 Transient cerebral ischemic attack, unspecified (principal); I10 Essential (primary) hypertension; F33.9 Major depressive disorder, recurrent, unspecified; Z98.84 Bariatric surgery status; E11.40 Type 2 diabetes mellitus with diabetic neuropathy, unspecified; F41.9 Anxiety disorder, unspecified
CPT/HCPCS: 36415; 70450; 70496; 70498; 70553; 71045; 80048; 80053; 80061; 81001; 82948; 83036; 84484; 85025; 85610; 85730; 87086; 93005; 96365; 96374; 99285; A9270; A9577; G0378; J0696; Q9967

== ENCOUNTER 2025-03-01 12:35 | Outpatient (CLI) | payer OTHER, SELFPAY ==
--- NOTE | ~2025-03-01 | XR_ITS ---
EXAM: XR hand LT min 3V DATE: 03/01/2025 13:02 HISTORY: keep in splint . COMPARISON: None available. FINDINGS: Osseous detail obscured by overlying cast material. Severe osteopenia. Moderate scattered degenerative changes. Fractures of the proximal second through fourth proximal phalanges, in unchange d alignment. IMPRESSION: Stable left second through fourth proximal phalange fractures. Reviewed, dictated and finalized at location K.
--- OUTSIDE RECORDS SUMMARY | 2025-03-01 12:49 | XMS_ITS | Referral Summary ---
Author Organization [facility] Address [address] [place] [id number] Care Team Providers Care Medical Safety Director Name Role Phone Molly Figueroa MD Primary Care Provider Reena Solitario BODY FORMER Unavailable [phone] Leana Luna BODY FORMER Unavailable [phone] Allergies Active Allergy Reactions Criticality Noted [...] 0 10/09/2016 AMBER (generalized anxiety disorder) 10/09/2016 Blxq-qt-[id number] spots 08/29/2015 Fibromyalgia 05/18/2015 Vitamin D deficiency [...] on file Legal Sex Female 1:19 PM CARE ASST Gender Identity Not on file Sexual Orientation [...] Most Recently Relevant to Health Maintenance Insurance [facility] H[facility]/PPO Address: [address] [address] [facility]/PPO Address: [address] [place] [address] [facility] HMO/PPO Address: [address] [place] [id number] Advance Directives For more information, please contact: [phone] * Full Code (Latest Code Status on File) Date Activated Date Inactivated Comments 08/17/2021 9:30 AM 08/18/2021 4:36 AM Care Teams Medical Safety Director Relationship Specialty Start Date End Date Molly Figueroa MD PCP - General Family Practice 08/29/22 Reena Solitario NP [address] [place] [address] Nurse Practitioner Psychiatry 10/26/22 Leana Luna NP [address] [place] [address] Nurse Practitioner Family Practice 03/11/23
--- OUTSIDE RECORDS SUMMARY | 2025-03-01 12:49 | XMS_ITS | Clinical Summary ---
Author Organization [facility] Address [address] [place] [address] Care Team Providers Care Ergonomic Specialist Name Role Phone Javi Meeks MD Primary Care Provider [phone] Source Comments [facility] [employer] [employer],non-owned Affiliates and Associated Physician Practices is amultiple site organization consisting of ambulatory clinics and hospital sitesin [place], [place], [place] and [place]. This disclosure is being madepursuant to the Care Everywhere program and may not contain all information available regarding this patient. 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 Pldm-[id number]-[id number] spots 08/29/2015 Fibromyalgia 05/18/2015 Family History Medical [...] on file Legal Sex Female 6:02 PM CAPTURE MANAGER Gender Identity Not on file Sexual Orientation Not on file Last Filed Vital Signs Vital Sign Reading Time Taken Comments Blood Pressure 136/72 06/22/2015 8:42 AM CAPTURE MANAGER Pulse 74 06/22/2015 8:42 AM CAPTURE MANAGER Temperature 36.2 C (97.1 F) 06/22/2015 8:42 AM CAPTURE MANAGER Respiratory Rate - - Oxygen Saturation 98% 06/22/2015 8:42 AM CAPTURE MANAGER Inhaled Oxygen Concentration - - Weight 91.5 kg (201 lb 12.8 oz) 06/22/2015 8:42 AM CAPTURE MANAGER Height 162.6 cm (5' 4) 06/22/2015 8:42 AM CAPTURE MANAGER Body Mass Index 34.64 06/22/2015 8:42 AM CAPTURE MANAGER Plan of Treatment Health Maintenance Due Date [...] Antibody <0.1 0.0 - 0.9 s/co ratio [facility] Comment: Negative: < 0.8 Indeterminate: 0.8 - 0.9 Positive: > 0.9 In order to reduce the incidence of a false positive result, the CDC recommends that all s/co ratios between 1.0 and 10.9 be confirmed by a more specific supplemental or PCR testing. [facility] offers HCV Ab w/Reflex to Verification test #[id number]. Blood specimen (specimen) BLOOD SPECIMEN / Unknown 05/18/2015 1:36 PM CDT 05/18/2015 4:06 PM CDT Narrative [facility]) - 05/20/2015 7:18 AM CDT Performed at: - [facility] [address] [place], [place] [id number] Morgue Attendant: Santiago Jaime PhD, Phone: [phone] Gayla Abreu MD LAB - CHEMISTRY OR DERABLES Edited Result - Final [facility] [address] [place] [address], [facility] from Last 3 Months or Most Recently Relevant to Health Maintenance Insurance [facility] [place] [address] [facility] Care Teams Ergonomic Specialist Relationship Specialty Start Date End Date Javi Meeks MD [address] [place] [address] PCP - General 05/16/18
--- OUTSIDE RECORDS SUMMARY | 2025-03-01 12:49 | XMS_ITS | Clinical Summary ---
Author Organization [facility] Address [address] [place] [address] Care Team Providers Care Labor Expediter Name Role Phone Molly Figueroa MD Primary Care Provider Reena Solitario LEAF SORTER Unavailable [phone] Leana Luna LEAF SORTER Unavailable [phone] Allergies Active Allergy Reactions Criticality Noted [...] 0 10/09/2016 AMBER (generalized anxiety disorder) 10/09/2016 Kzad-uf-sewa spots 08/29/2015 Fibromyalgia 05/18/2015 Vitamin D deficiency [...] 04/16/2007 Surgical History Surgery Date Site/Laterality Comments [place] ARTHRD ANT INTERBODY MIN DSC LUMBAR Lumbar Vertebral Fusion - (Added by TW Conv) IA ARTHRD ANT INTERBODY MIN DSC CRV BELOW C2 Cervical Vertebral Fusion - (Added by TW Conv) IA CHOLECYSTECTOMY Cholecystectomy - (Added by TW Conv) GASTRIC BYPASS High Gastric Bypass - (Added by TW Conv) IA ARTHROSCOPY KNEE W/MENISCUS RPR MEDIAL/LATERAL Knee Arthroscopy With Lateral Meniscus Repair - (Added by TW Conv) BACK SURGERY Back Surgery - (Added by TW Conv) IA NEUROPLASTY &/TRANSPOS MEDIAN NRV CARPAL TUNNE Neuroplasty [...] on file Legal Sex Female 1:19 PM PATTERN ATTENDANT Gender Identity Not on file Sexual Orientation [...] 2024 07/27/2021, 10/27/2020, 10/06/2020 Influenza Vaccine (#1) 2025 , 07/03/2019, 04/15/2018, Additional history exists Colon [...] Most Recently Relevant to Health Maintenance Insurance [facility]/PPO Address: [address] [address] [facility]/PPO Address: [address] [place] [id number] [facility] HMO/PPO Address: [facility] [address] [place] [address] Advance Directives For more information, please contact: [phone] * Full Code (Latest Code Status on File) Date Activated Date Inactivated Comments 08/17/2021 9:30 AM 08/18/2021 4:36 AM Care Teams Labor Expediter Relationship Specialty Start Date End Date Molly Figueroa MD PCP - General Family Practice 08/29/22 Reena Solitario NP [address] [place] [address] Nurse Practitioner Psychiatry 10/26/22 Leana Luna NP [address] [place] [address] Nurse Practitioner Family Practice 03/11/23
--- OUTSIDE RECORDS SUMMARY | 2025-03-01 12:49 | XMS_ITS | Encounter Summary ---
Author Organization [facility] Address [address] [place] [address] Phone Care Team Providers Care Body Corporate Manager Name Role Phone Javi Meeks MD Primary Care Provider [phone] Jose Panda MD Primary Care Provider [phone] Unknown, Notinfile Primary Care Provider Unavail able Molly Figueroa MD Primary Care Provider Reena Solitario LEASING ASSISTANT Unavailable [phone] Leana Luna LEASING ASSISTANT Unavailable [phone] Encounter Details Date Type Department Care Team (Late st Contact Info) Description 03/26/2022 Telephone [facility] Orthopaedic Surgery [address] [place] [address] Jassi Rene MD [address] [facility] [address] [place], [place] [id number] Social History Tobacco Use Types Packs/Day Years Used Date Smoking Tobacco: Never Smokeless Tobacco: Never Alcohol Use Standard Drinks/Week Comments Never 0 (1 standard drink = 0.6 oz pur e alcohol) Comments No Sex and Gender Information Value Date Recorded Sex Assigned at Not on file Legal Sex Female 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 Gender Identity Not on file Sexual Orientation Not on file documented as of this encounter Plan of Treatment Not on file documented as of this encounter Visit Diagnoses Not on filedocumented in this encounter Care Teams Body Corporate Manager Relationship Specialty Start Date End Date Javi Meeks MD [address] [place] [address] PCP - General 10/15/16 06/03/22 Jose Panda MD [address] [place] [address] PCP - General Family Medicine 06/04/22 07/10/22 Unknown, Notinfile PCP - General 07/11/22 08/28/22 Molly Figueroa MD PCP - General Family Practice 08/29/22 Reena Solitario NP [address] [place] [address] Nurse Practitioner Psychiatry 10/26/22 Leana Luna NP [address] [place] [address] Nurse Practitioner Family Practice 03/11/23 documented as of this encounter
== END 2025-03-01 12:36 | disposition home or self-care (01) ==
PROVIDERS: PCP Family Medicine Adolescent Medicine; Visit Provider Plastic Surgery
DX: S62.641A Nondisplaced fracture of proximal phalanx of left index finger, initial encounter for closed fracture (principal); S62.643A Nondisplaced fracture of proximal phalanx of left middle finger, initial encounter for closed fracture; S62.645A Nondisplaced fracture of proximal phalanx of left ring finger, initial encounter for closed fracture; X58.XXXA Exposure to other specified factors, initial encounter
CPT/HCPCS: 73130

== ENCOUNTER 2025-03-15 09:47 | Outpatient (CLI) | payer OTHER, SELFPAY ==
--- NOTE | ~2025-03-15 | XR_ITS ---
XR hand LT min 3V 03/15/2025 10:48 Indication: Displaced fractures of the left hand Procedure: 4 views left hand Comparison: 03/01/2025 Findings: Stable alignment of mildly displaced extra-articular fractures proximal aspect of the secon d, third and fourth proximal phalanges. Osteopenia. There is polyarticular osteoarthritis. Impression: 1: Stable alignment of mildly displaced extra-articular fracture proximal aspect of the left second, third and fourth proximal phalanges. Reviewed, dictated and finalized at location A. Impression: 1: Stable alignment of mildly displaced extra-articular fracture proximal aspec t of the left second, third and fourth proximal phalanges.
--- OUTSIDE RECORDS SUMMARY | 2025-03-15 10:18 | XMS_ITS | Clinical Summary ---
Author Organization [facility] Address [address] [place] [address] Care Team Providers Care Alloy Weigher Name Role Phone Javi Meeks MD Primary Care Provider [phone] Source Comments [facility] [employer],non-owned Affiliates and Associated Physician Practices is amultiple site organization consisting of ambulatory clinics and hospital sitesin [place], [place], [place] and [place]. This disclosure is being madepursuant to the Care Everywhere program and may not contain all information available regarding this patient. Last updated 18.[facility] Active Problems Problem Noted Date Diagnosed Date Epidermal cyst 08/29/2015 Melanocytic nevus 08/29/2015 Other melanin hyperpigmentation 08/29/2015 Personal history of other malignant neoplasm of skin 08/29/2015 Other specified follicular disorders 08/29/2015 Xcbz-bt-esne spots 08/29/2015 Fibromyalgia 05/18/2015 Family History Medical [...] on file Legal Sex Female 6:02 PM TURF AND GROUNDS SUPERVISOR Gender Identity Not on file Sexual Orientation Not on file Last Filed Vital Signs Vital Sign Reading Time Taken Comments Blood Pressure 136/72 06/22/2015 8:42 AM TURF AND GROUNDS SUPERVISOR Pulse 74 06/22/2015 8:42 AM TURF AND GROUNDS SUPERVISOR Temperature 36.2 C (97.1 F) 06/22/2015 8:42 AM TURF AND GROUNDS SUPERVISOR Respiratory Rate - - Oxygen Saturation 98% 06/22/2015 8:42 AM TURF AND GROUNDS SUPERVISOR Inhaled Oxygen Concentration - - Weight 91.5 kg (201 lb 12.8 oz) 06/22/2015 8:42 AM TURF AND GROUNDS SUPERVISOR Height 162.6 cm (5' 4) 06/22/2015 8:42 AM TURF AND GROUNDS SUPERVISOR Body Mass Index 34.64 06/22/2015 8:42 AM TURF AND GROUNDS SUPERVISOR Plan of Treatment Health Maintenance Due Date [...] Antibody <0.1 0.0 - 0.9 s/co ratio [facility]) Comment: Negative: < 0.8 Indeterminate: 0.8 - 0.9 Positive: > 0.9 In order to reduce the incidence of a false positive result, the CDC recommends that all s/co ratios between 1.0 and 10.9 be confirmed by a more specific supplemental or PCR testing. [facility] offers HCV Ab w/Reflex to Verification test #[id number]. Blood specimen (specimen) BLOOD SPECIMEN / Unknown 05/18/2015 1:36 PM CDT 05/18/2015 4:06 PM CDT Narrative [facility] ([facility]) - 05/20/2015 7:18 AM CDT Performed at: - [facility] [address], [place] [id number] Proposal Manager: Santiago Jaime PhD, Phone: [phone] Gayla Abreu MD LAB - CHEMISTRY OR DERABLES Edited Result - Final [facility] ([facility]) [address] [place] [address], [facility] from Last 3 Months or Most Recently Relevant to Health Maintenance Insurance [facility] Care Teams Alloy Weigher Relationship Specialty Start Date End Date Javi Meeks MD [address] [place] [address] PCP - General 05/16/18
--- OUTSIDE RECORDS SUMMARY | 2025-03-15 10:18 | XMS_ITS | Encounter Summary ---
Author Organization [facility] Address [address] [place] [address] Phone Care Team Providers Care Tongue Carrier Name Role Phone Javi Meeks MD Primary Care Provider [phone] Jose Panda MD Primary Care Provider [phone] Unknown, Notinfile Primary Care Provider Unavail able Molly Figueroa MD Primary Care Provider Reena Solitario SENIOR ENGINEERING TEAM LEADER Unavailable [phone] Leana Luna SENIOR ENGINEERING TEAM LEADER Unavailable [phone] Encounter Details Date Type Department Care Team (Late st Contact Info) Description 03/26/2022 Telephone [facility] Orthopaedic Surgery [address] [place] [address] Jassi Rene MD [address] 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 Gender Identity Not on file Sexual Orientation Not on file documented as of this encounter Plan of Treatment Not on file documented as of this encounter Visit Diagnoses Not on filedocumented in this encounter Care Teams Tongue Carrier Relationship Specialty Start Date End Date Javi Meeks MD [address] [place] [address] PCP - General 10/15/16 06/03/22 Jose Panda MD [address] [place] [address] PCP - General Family Medicine 06/04/22 07/10/22 Unknown, Notinfile PCP - General 07/11/22 08/28/22 Molly Figueroa MD PCP - General Family Practice 08/29/22 Reena Solitario NP [address] [place] [address] Nurse Practitioner Psychiatry 10/26/22 Leana Luna NP [address] [place] [address] Nurse Practitioner Family Practice 03/11/23 documented as of this encounter
--- OUTSIDE RECORDS SUMMARY | 2025-03-15 10:18 | XMS_ITS | Patient Health Record ---
Author Organization [facility] Address [address] [place] [address] Care Team Providers Care Radiation Control Specialist Name Role Phone Reena Solitario Unavailable [phone] Reason For Referral No Information Medications Medication [...] Buprenorphine 10 mcg/hour Transdermal *[facility]* 12/06/2022 Active Cyanocobalamin 1000 MCG/ML Injection 12/06/2022 Active traZODone HCl 100 MG Oral 12/06/2022 Active traMADol HCl 50 MG Oral 12/06/2022 Active Metoprolol Tartrate 50 MG Oral 12/06/2022 Active Ozempic (0.25 or 0.5 MG/DOSE) 2 MG/3ML Subcutaneous *[facility] 12/06/2022 Active Pregabalin 150 MG Oral 12/06/2022 A ctive Metoprolol Tartrate *Pick strength-form from [facility] for eRX* 12/06/2022 Active lamoTRIgine 25 MG Oral 12/06/2022 A ctive diazePAM 5 MG Oral 12/06/2022 Activ e Ergocalciferol 1.25 MG ([address] [place]) Oral 12/06/2022 Active Ambien 5 MG Oral 12/06/2022 Active Immunizations Vaccine Route Administration Date Status Comme nts Influenza virus vaccine, quadrivalent (IIV4), split virus, 0.25 mL dosage Unknown 04/07/2018 Administered Plan Of Treatment No Information Insurance Providers Payer Name Payer Address Payer Phone Subscriber Number Group Number Insured Name Patient Relationship to Insured Coverage Start Date Coverage End Date [facility] [address] [address] [place] [address] [id number] LUZ LUEVANO Self - patient is the insured
--- OUTSIDE RECORDS SUMMARY | 2025-03-15 10:18 | XMS_ITS | Clinical Summary ---
Author Organization [facility] Address [address] [place] [address] Care Team Providers Care Sheep Killer Name Role Phone Molly Figueroa MD Primary Care Provider Reena Solitario ENGINE BUILDUP MECHANIC Unavailable [phone] Leana Luna ENGINE BUILDUP MECHANIC Unavailable [phone] Allergies Active Allergy Reactions Criticality Noted [...] 0 10/09/2016 AMBER (generalized anxiety disorder) 10/09/2016 Jlzq-iu-gkin spots 08/29/2015 Fibromyalgia 05/18/2015 Vitamin D deficiency [...] 04/16/2007 Surgical History Surgery Date Site/Laterality Comments [place] ARTHRD ANT INTERBODY MIN DSC LUMBAR Lumbar Vertebral Fusion - (Added by TW Conv) [place] ARTHRD ANT INTERBODY MIN DSC CRV BELOW C2 Cervical Vertebral Fusion - (Added by TW Conv) [place] CHOLECYSTECTOMY Cholecystectomy - (Added by TW Conv) GASTRIC BYPASS High Gastric Bypass - (Added by TW Conv) [place] ARTHROSCOPY KNEE W/MENISCUS RPR MEDIAL/LATERAL Knee Arthroscopy With Lateral Meniscus Repair - (Added by TW Conv) BACK SURGERY Back Surgery - (Added by TW Conv) [place] NEUROPLASTY &/TRANSPOS MEDIAN NRV CARPAL TUNNE Neuroplasty [...] on file Legal 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 Gender Identity Not on file Sexual Orientation [...] Most Recently Relevant to Health Maintenance Insurance [facility] Address: [address] [address] [facility] Address: [address] [place] [address] [facility] Address: [facility] [address] [place] [address] Advance Directives For more information, please contact: [phone] * Full Code (Latest Code Status on File) Date Activated Date Inactivated Comments 08/17/2021 9:30 AM 08/18/2021 4:36 AM Care Teams Sheep Killer Relationship Specialty Start Date End Date Molly Figueroa MD PCP - General Family Practice 08/29/22 Reena Solitario NP [address] [place] [address] Nurse Practitioner Psychiatry 10/26/22 Leana Luna NP [address] [place] [address] Nurse Practitioner Family Practice 03/11/23
== END 2025-03-15 09:48 | disposition home or self-care (01) ==
PROVIDERS: PCP Nurse Practitioner Family; Visit Provider Plastic Surgery
DX: S62.621D Displaced fracture of middle phalanx of left index finger, subsequent encounter for fracture with routine healing (principal); S62.615D Displaced fracture of proximal phalanx of left ring finger, subsequent encounter for fracture with routine healing; S62.612D Displaced fracture of proximal phalanx of right middle finger, subsequent encounter for fracture with routine healing; X58.XXXD Exposure to other specified factors, subsequent encounter
CPT/HCPCS: 73130

== ENCOUNTER 2025-03-22 13:33 | Outpatient (CLI) | payer OTHER, SELFPAY ==
--- NOTE | 2025-03-22 13:56 | ECHO_ITS ---
Patient Info Name: Andra Ross Age: 64 years : 1960 Gender: Female Ht: 64 in Wt: 248 lbs BSA: 2.31 m2 HR: 76 bpm BP: 130 / 87 mmHg Heart Rhythm: Sinus Rhythm Technical Quality: Fair Exam Date: 03/22/2025 2:04 PM Patient Status: O Admit Date: 03/22/2025 Exam Type: CA echo dop bubble study w con Complete two-dimentional, color flow and Doppler transthoracic echocardiogram is performed with agitated saline and with contrast to opacify the left ventricle and to improve the delineation of the left ventricle endocardial borders. Finish Mill Operator: Kim Ornelas Attending Provider: Reena Parikh Contrast/Agitated Saline Contrast/Ag. Saline: Agitated Saline Amount: 20.00 ml Existing IV Access: No New IV Access: Right Site Condition: IV removed Contrast/Ag. Saline: Definity Amount: 2.00 ml Administered By: Kim Ornelas Existing IV Access: No New IV Access: Right Site Condition: IV removed Summary 1. Definity contrast administered improved wall motion interpretation. 2. Left ventricular chamber dimension is normal. 3. Left ventricular systolic function is normal, estimated at 60-65. 4. The left ventricular diastolic function is grade I diastolic dysfunction. 5. E/e' 12 is mildly elevated. 6. Left atrial chamber dimension is mildly enlarged. 7. There is mild aortic valve sclerosis. 8. There is mild mitral valve regurgitation. 9. No pulmonary hypertension, estimated pulmonary arterial systolic pressure is 37 mmHg. Left Ventricle E/e' 12 is mildly elevated. Left ventricular chamber dimension is normal. Left ventricular systolic function is normal, estimated at 60-65. The left ventricular diastolic function is grade I diastolic dysfunction. Definity contrast administered improved wall motion interpretation. Right Ventricle Right ventricular chamber dimension is normal. Right ventricular systolic function is normal and with normal TAPSE 2.5 cm. Left Atria Left atrial chamber dimension is mildly enlarged. Right Atria Right atrial chamber dimension is normal. Atrial Septum Intact interatrial septum visualized by 2D and agitated saline imaging. Agitated saline injection with and without valsalva maneuver opacified right side cardiac chambers without shunt to left side cardiac chambers. Aortic Valve The aortic valve is trileaflet. There is mild aortic valve sclerosis. There is no aortic valve stenosis. There is no aortic valve regurgitation. Pulmonic Valve There is no pulmonic regurgitation. Mitral Valve There is no mitral valve stenosis. There is mild mitral valve regurgitation. Tricuspid Valve There is no tricuspid valve regurgitation. No pulmonary hypertension, estimated pulmonary arterial systolic pressure is 37 mmHg. Pericardium/Pleural There is no pericardial effusion. Inferior Vena Cava Normal inferior vena cava with >50% collapse upon inspiration consistent with normal right atrial pressure, 5 mmHg. Aorta The aortic root size at the sinus of Valsalva is normal. Left Ventricular Outflow Tract Name Value Normal LVOT 2D LVOT Diameter 2.1 cm LVOT Doppler LVOT Peak Velocity 102 cm/s LVOT Peak Gradient 4 mmHg LVOT Mean Gradient 2 mmHg LVOT VTI 17 cm LVOT VTI/AV VTI Ratio 0.6 LVOT Stroke Volume 56 ml LVOT CO 4.0 l/min LVOT CI 1.7 l/min/m2 Mitral Valve Name Value Normal MV Diastolic Function MV E Peak Velocity 70 cm/s MV A Peak Velocity 98 cm/s MV E/A 0.7 MV Decel Time (PW) 209 ms MV Annular TDI MV E/e' (Septal) 12.7 Tricuspid Valve Name Value Normal TV Regurgitation Doppler TR Peak Velocity 284 cm/s TR Peak Gradient 32 mmHg Estimated PAP/RSVP RA Pressure 5 mmHg <=5 PA Systolic Pressure 37 mmHg <36 RV Systolic Pressure 37 mmHg <36 TV Annular TDI TV Lateral Rhea s' Velocity 13.7 cm/s >=9.5 Aortic Valve Name Value Normal AV Doppler AV Peak Velocity 143 cm/s AV Peak Gradient 8 mmHg AV Mean Gradient 4 mmHg AV VTI 26 cm AV Area (Cont Eq VTI) 2.2 cm2 >=3.0 AV Area (Cont Eq Kahlil) 2.4 cm2 AV DI (Kahlil) 0.72 AV Regurgitation 2D LVOT Area 3.4 cm2 Ventricles Name Value Normal LV Dimensions 2D/MM IVS Diastolic Thickness (2D) 1.0 cm 0.6-1.0 LVID Diastole (2D) 4.7 cm 3.8-5.2 LVIW Diastolic Thickness (2D) 1.0 cm 0.6-0.9 LVID Systole (2D) 3.2 cm 2.2-3.5 LVOT Diameter 2.1 cm LV Mass (2D Cubed) 155.56 g 67.00-162.00 LV Mass Index (2D Cubed) 67 g/m2 43-95 Relative Wall Thickness (2D) 0.42 <=0.42 LV Fractional Shortening/Ejection Fraction 2D/MM LV Fractional Shortening (2D) 32 % 27-45 LV EF (2D Teichholz) 60 % LV Diastolic Volume (4C MOD) 79 ml LV EF (4C MOD) 75 % LV Diastolic Volume (2C MOD) 43 ml LV EF (2C MOD) 60 % LV Diastolic Volume (BP MOD) 64 ml 46-106 LV Diastolic Volume Index (BP MOD) 27 ml/m2 29-61 LV Systolic Volume (BP MOD) 19 ml 14-42 LV Systolic Volume Index (BP MOD) 8 ml/m2 8-24 LV EF (BP MOD) 70 % 54-74 LV Diastolic Length (4C) 8.1 cm LV Systolic Length (4C) 6.0 cm LV Stroke Volume (4C MOD) 59 ml Atria Name Value Normal LA Dimensions LA Volume (4C A-L) 46 ml LA Volume (BP A-L) 42 ml RA Dimensions RA Systolic Major [place] Length (4C) 5.2 cm 2.2-2.8 RA Area (4C) 16.9 cm2 <=18.0 Report Signatures
--- OUTSIDE RECORDS SUMMARY | 2025-03-22 14:42 | XMS_ITS | Encounter Summary ---
Author Organization [facility] Address [address] [place] [address] Phone Care Team Providers Care Talent Consultant Name Role Phone Javi Meeks MD Primary Care Provider [phone] Jose Panda MD Primary Care Provider [phone] Unknown, Notinfile Primary Care Provider Unavail able Molly Figueroa MD Primary Care Provider Reena Solitario ASSISTANT BUSINESS MANAGER Unavailable [phone] Leana Luna ASSISTANT BUSINESS MANAGER Unavailable [phone] Encounter Details Date Type Department Care Team (Late st Contact Info) Description 03/26/2022 Telephone [facility] Orthopaedic Surgery [address] [place] [address] Jassi Rene MD [address] [facility] [address] [place], [place] [id number] Social History Tobacco Use Types Packs/Day Years Used Date Smoking Tobacco: Never Smokeless Tobacco: Never Alcohol Use Standard Drinks/Week Comments Never 0 (1 standard drink = 0.6 oz pur e alcohol) Comments No Sex and Gender Information Value Date Recorded Sex Assigned at Not on file Legal Sex Female 1:19 PM SERVICE DEVELOPER Gender Identity Not on file Sexual Orientation Not on file documented as of this encounter Plan of Treatment Not on file documented as of this encounter Visit Diagnoses Not on filedocumented in this encounter Care Teams Talent Consultant Relationship Specialty Start Date End Date Javi Meeks MD [address] [place] [address] PCP - General 10/15/16 06/03/22 Jose Panda MD [address] [place] [address] PCP - General Family Medicine 06/04/22 07/10/22 Unknown, Notinfile PCP - General 07/11/22 08/28/22 Molly Figueroa MD PCP - General Family Practice 08/29/22 Reena Solitario NP [address] [place] [address] Nurse Practitioner Psychiatry 10/26/22 Leana Luna NP [address] [address] Nurse Practitioner Family Practice 03/11/23 documented as of this encounter
--- OUTSIDE RECORDS SUMMARY | 2025-03-22 14:42 | XMS_ITS | Clinical Summary ---
Author Organization [facility] Address [address] [place] [address] Care Team Providers Care All Source Intelligence Name Role Phone Javi Meeks MD Primary Care Provider [phone] Source Comments [facility] One Month,non-owned Affiliates and Associated Physician Practices is amultiple site organization consisting of ambulatory clinics and hospital sitesin [place], [place], [place] and [place]. This disclosure is being madepursuant to the Care Everywhere program and may not contain all information available regarding this patient. 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 Xsvz-va-vkjf spots 08/29/2015 Fibromyalgia 05/18/2015 Family History Medical [...] on file Legal Sex Female 6:02 PM TELEGRAPHIC INSTRUMENT SUPERVISOR Gender Identity Not on file Sexual Orientation Not on file Last Filed Vital Signs Vital Sign Reading Time Taken Comments Blood Pressure 136/72 06/22/2015 8:42 AM TELEGRAPHIC INSTRUMENT SUPERVISOR Pulse 74 06/22/2015 8:42 AM TELEGRAPHIC INSTRUMENT SUPERVISOR Temperature 36.2 C (97.1 F) 06/22/2015 8:42 AM TELEGRAPHIC INSTRUMENT SUPERVISOR Respiratory Rate - - Oxygen Saturation 98% 06/22/2015 8:42 AM TELEGRAPHIC INSTRUMENT SUPERVISOR Inhaled Oxygen Concentration - - Weight 91.5 kg (201 lb 12.8 oz) 06/22/2015 8:42 AM TELEGRAPHIC INSTRUMENT SUPERVISOR Height 162.6 cm (5' 4) 06/22/2015 8:42 AM TELEGRAPHIC INSTRUMENT SUPERVISOR Body Mass Index 34.64 06/22/2015 8:42 AM TELEGRAPHIC INSTRUMENT SUPERVISOR Plan of Treatment Health Maintenance Due [...] Antibody <0.1 0.0 - 0.9 s/co ratio [facility] ([facility]) Comment: Negative: < 0.8 Indeterminate: 0.8 - 0.9 Positive: > 0.9 In order to reduce the incidence of a false positive result, the CDC recommends that all s/co ratios between 1.0 and 10.9 be confirmed by a more specific supplemental or PCR testing. [facility] offers HCV Ab w/Reflex to Verification test #[id number]. Blood specimen (specimen) BLOOD SPECIMEN / Unknown 05/18/2015 1:36 PM CDT 05/18/2015 4:06 PM CDT Narrative [facility] ([facility]) - 05/20/2015 7:18 AM CDT Performed at: - [facility] [address] [place], [place] [id number] Helmet Hat Puncher: Santiago Jaime PhD, Phone: [phone] Gayla Abreu MD LAB - CHEMISTRY OR DERABLES Edited Result - Final [facility] ([facility]) [address] [place] [address], [facility] from Last 3 Months or Most Recently Relevant to Health Maintenance Insurance [facility] Care Teams All Source Intelligence Relationship Specialty Start Date End Date Javi Meeks MD [address] [place] [address] PCP - General 05/16/18
--- OUTSIDE RECORDS SUMMARY | 2025-03-22 14:42 | XMS_ITS | Clinical Summary ---
Author Organization [facility] Address [address] [place] [address] Care Team Providers Care Equipment Service Lead Name Role Phone Molly Figueroa MD Primary Care Provider Reena Solitario AVIATION ELECTRONICS TECHNICIAN Unavailable [phone] Leana Luna AVIATION ELECTRONICS TECHNICIAN Unavailable [phone] Allergies Active Allergy Reactions Criticality Noted [...] 0 10/09/2016 AMBER (generalized anxiety disorder) 10/09/2016 Jyfx-gr-qfpm spots 08/29/2015 Fibromyalgia 05/18/2015 Vitamin D deficiency [...] 04/16/2007 Surgical History Surgery Date Site/Laterality Comments [place] ARTHRD ANT INTERBODY MIN DSC LUMBAR Lumbar Vertebral Fusion - (Added by TW Conv) [place] ARTHRD ANT INTERBODY MIN DSC CRV BELOW C2 Cervical Vertebral Fusion - (Added by TW Conv) [place] CHOLECYSTECTOMY Cholecystectomy - (Added by TW Conv) GASTRIC BYPASS High Gastric Bypass - (Added by TW Conv) [place] ARTHROSCOPY KNEE W/MENISCUS RPR MEDIAL/LATERAL Knee Arthroscopy With Lateral Meniscus Repair - (Added by TW Conv) BACK SURGERY Back Surgery - (Added by TW Conv) [place] NEUROPLASTY &/TRANSPOS MEDIAN NRV CARPAL TUNNE Neuroplasty [...] on file Legal Sex Female 1:19 PM RDA Gender Identity Not on file Sexual Orientation [...] Most Recently Relevant to Health Maintenance Insurance [facility] Advance Directives For more information, please contact: [phone] * Full Code (Latest Code Status on File) Date Activated Date Inactivated Comments 08/17/2021 9:30 AM 08/18/2021 4:36 AM Care Teams Equipment Service Lead Relationship Specialty Start Date End Date Molly Figueroa MD PCP - General Family Practice 08/29/22 Reena Solitario NP [address] [place] [address] Nurse Practitioner Psychiatry 10/26/22 Leana Luna NP [address] [place] [address] Nurse Practitioner Family Practice 03/11/23
--- OUTSIDE RECORDS SUMMARY | 2025-03-22 14:42 | XMS_ITS | Patient Health Record ---
Author Organization [facility] Address [address] [place] [address] Care Team Providers Care Needle Grader Name Role Phone Reena Solitario Unavailable [phone] Reason For Referral No Information Medications Medication [...] Buprenorphine 10 mcg/hour Transdermal *[facility]* 12/06/2022 Active Cyanocobalamin 1000 MCG/ML Injection 12/06/2022 Active traZODone HCl 100 MG Oral 12/06/2022 Active traMADol HCl 50 MG Oral 12/06/2022 Active Metoprolol Tartrate 50 MG Oral 12/06/2022 Active Ozempic (0.25 or 0.5 MG/DOSE) 2 MG/3ML Subcutaneous *Pick strength-form from [facility] for eRX* 12/06/2022 Active Pregabalin 150 MG Oral 12/06/2022 A ctive Metoprolol Tartrate *Pick strength-form from [facility] for eRX* 12/06/2022 Active lamoTRIgine 25 MG Oral 12/06/2022 A ctive diazePAM 5 MG Oral 12/06/2022 Activ e Ergocalciferol 1.25 MG (88[address] [place]) Oral 12/06/2022 Active Ambien 5 MG Oral 12/06/2022 Active Immunizations Vaccine Route Administration Date Status Comme nts Influenza virus vaccine, quadrivalent (IIV4), split virus, 0.25 mL dosage Unknown 04/07/2018 Administered Plan Of Treatment No Information Insurance Providers Payer Name Payer Address Payer Phone Subscriber Number Group Number Insured Name Patient Relationship to Insured Coverage Start Date Coverage End Date [facility] [address] [address] [place] [address] [phone] [id number] LUZ LUEVANO Self - patient is the insured
[2025-03-22] MEDS: PERFLUTREN LIPID MICROSPHERES 1.5 ML VIAL DILUTED TO 10 ML TOTAL VOLUME IV PUSH (15:30)
--- NOTE | 2025-03-22 15:59 | IVDEFINITY ---
Prior to administration of IV Definity the patient was educated on the risks and benefits of the imaging enhancing agent including potential adverse side effects. The patient verbalized understanding. Allergies were verified. No exclusion criteria were identified and at least one of the following inclusion criteria were met: 1) physician request, 2) patient technically difficult to image (per the [place] [employer] Echocardi[employer] guidelines of two or more segments not discernable within the apical view), or 3) questionable left ventricular function. ?
== END 2025-03-22 13:34 | disposition home or self-care (01) ==
PROVIDERS: PCP Nurse Practitioner Family; Visit Provider Nurse Practitioner Family
DX: G45.9 Transient cerebral ischemic attack, unspecified (principal); R93.1 Abnormal findings on diagnostic imaging of heart and coronary circulation
CPT/HCPCS: 96375; C8929; Q9957

== ENCOUNTER 2025-04-12 14:25 | Outpatient (CLI) | payer OTHER, SELFPAY ==
--- NOTE | ~2025-04-12 | XR_ITS ---
EXAMINATION: XR hand LT min 3V, 04/12/2025 14:50 CDT HISTORY: S62.619A - Displaced fracture of proximal phalanx of unsp... COMPARISON: No comparisons available. Findings: Slightly displaced angulated fractures of the proximal phalanges of the third and fourth digits. Moderate osteopenia. Moderate degenerative changes. Soft tissues unremarkable. Impression: Fractures detailed above Reviewed, dictated and finalized at location A. Impression: Fractures detailed above
--- OUTSIDE RECORDS SUMMARY | 2025-04-12 14:34 | XMS_ITS | Encounter Summary ---
Author Organization [facility] Address [address] [place] [address] Phone Care Team Providers Care Senior C Web Developer Name Role Phone Javi Meeks MD Primary Care Provider [phone] Jose Panda MD Primary Care Provider [phone] Unknown, Notinfile Primary Care Provider Unavail able Molly Figueroa MD Primary Care Provider Reena Solitario RECEIVING TELLER Unavailable [phone] Leana Luna RECEIVING TELLER Unavailable [phone] Encounter Details Date Type Department Care Team (Late st Contact Info) Description 03/26/2022 Telephone [facility] Medicine Orthopaedic Surgery [address] [place] [address] Jassi Rene MD [address] [facility] [address] [place], [place] [id number] Social History Tobacco Use Types Packs/Day Years Used Date Smoking Tobacco: Never Smokeless Tobacco: Never Alcohol Use Standard Drinks/Week Comments Never 0 (1 standard drink = 0.6 oz pur e alcohol) Comments No Sex and Gender Information Value Date Recorded Sex Assigned at Not on file Legal Sex Female 1:19 PM PRINTING EQUIPMENT MECHANIC Gender Identity Not on file Sexual Orientation Not on file documented as of this encounter Plan of Treatment Not on file documented as of this encounter Visit Diagnoses Not on filedocumented in this encounter Care Teams Senior C Web Developer Relationship Specialty Start Date End Date Javi Meeks MD [address] [place] [address] PCP - General 10/15/16 06/03/22 Jose Panda MD [address] [place] [address] PCP - General Family Medicine 06/04/22 07/10/22 Unknown, Notinfile PCP - General 07/11/22 08/28/22 Molly Figueroa MD PCP - General Family Practice 08/29/22 Reena Solitario NP [address] [place] [address] Nurse Practitioner Psychiatry 10/26/22 Leana Luna NP [address] [place] [address] Nurse Practitioner Family Practice 03/11/23 documented as of this encounter
--- OUTSIDE RECORDS SUMMARY | 2025-04-12 14:34 | XMS_ITS | Clinical Summary ---
Author Organization [facility] Address [address] [place] [address] Care Team Providers Care Bricklayer Tender Name Role Phone Javi Meeks MD Primary Care Provider [phone] Source Comments [facility] [employer],non-owned Affiliates and Associated Physician Practices is amultiple site organization consisting of ambulatory clinics and hospital sitesin [place], [place], [place] and [place]. This disclosure is being madepursuant to the Care Everywhere program and may not contain all information available regarding this patient. 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 [id number] spots 08/29/2015 Fibromyalgia 05/18/2015 Family History Medical [...] on file Legal Sex Female 6:02 PM SECRETARIAL TEACHER Gender Identity Not on file Sexual Orientation Not on file Last Filed Vital Signs Vital Sign Reading Time Taken Comments Blood Pressure 136/72 06/22/2015 8:42 AM SECRETARIAL TEACHER Pulse 74 06/22/2015 8:42 AM SECRETARIAL TEACHER Temperature 36.2 C (97.1 F) 06/22/2015 8:42 AM SECRETARIAL TEACHER Respiratory Rate - - Oxygen Saturation 98% 06/22/2015 8:42 AM SECRETARIAL TEACHER Inhaled Oxygen Concentration - - Weight 91.5 kg (201 lb 12.8 oz) 06/22/2015 8:42 AM SECRETARIAL TEACHER Height 162.6 cm (5' 4) 06/22/2015 8:42 AM SECRETARIAL TEACHER Body Mass Index 34.64 06/22/2015 8:42 AM SECRETARIAL TEACHER Plan of Treatment Health Maintenance Due Date [...] 11/27/2011 ZOSTER VACCINE (1 of 2) 11/27/2011 DEPRESSION SCREENING 08/05/2024 COVID-19 VACCINE (4 - season) 2025 07/27/2021, 10/27/2020, 10/06/2020 INFLUENZA VACCINE (#1) 2025 , 07/03/2019, 04/15/2018, [...] Antibody <0.1 0.0 - 0.9 s/co ratio [facility] ([facility]) Comment: Negative: < 0.8 Indeterminate: 0.8 - 0.9 Positive: > 0.9 In order to reduce the incidence of a false positive result, the CDC recommends that all s/co ratios between 1.0 and 10.9 be confirmed by a more specific supplemental or PCR testing. [facility] offers HCV Ab w/Reflex to Verification test #[id number]. Blood specimen (specimen) BLOOD SPECIMEN / Unknown 05/18/2015 1:36 PM CDT 05/18/2015 4:06 PM CDT Narrative [facility] ([facility]) - 05/20/2015 7:18 AM CDT Performed at: 01 - [facility] [address] [place], [place] [id number] Emergency Generator Mechanic: Santiago Jaime PhD, Phone: [phone] us Gayla Abreu MD LAB - CHEMISTRY OR DERABLES Edited Result - Final [facility]) [address] [place] [address] from Last 3 Months or Most Recently Relevant to Health Maintenance Insurance [facility] Care Teams Bricklayer Tender Relationship Specialty Start Date End Date Javi Meeks MD [address] [place] [address] PCP - General 05/16/18
--- OUTSIDE RECORDS SUMMARY | 2025-04-12 14:34 | XMS_ITS | Clinical Summary ---
Author Organization [facility] Address [address] [place] [address] Care Team Providers Care Door Serviceman Name Role Phone Molly Figueroa MD Primary Care Provider Reena Solitario CNC LATHE MACHINE OPERATOR Unavailable [phone] Leana Luna CNC LATHE MACHINE OPERATOR Unavailable [phone] Allergies Active Allergy Reactions Criticality Noted [...] 0 10/09/2016 AMBER (generalized anxiety disorder) 10/09/2016 Alqa-io-yytc spots 08/29/2015 Fibromyalgia 05/18/2015 Vitamin D deficiency [...] 04/16/2007 Surgical History Surgery Date Site/Laterality Comments PA ARTHRD ANT INTERBODY MIN DSC LUMBAR Lumbar Vertebral Fusion - (Added by TW Conv) PA ARTHRD ANT INTERBODY MIN DSC CRV BELOW C2 Cervical Vertebral Fusion - (Added by TW Conv) PA CHOLECYSTECTOMY Cholecystectomy - (Added by TW Conv) GASTRIC BYPASS High Gastric Bypass - (Added by TW Conv) PA ARTHROSCOPY KNEE W/MENISCUS RPR MEDIAL/LATERAL Knee Arthroscopy With Lateral Meniscus Repair - (Added by TW Conv) BACK SURGERY Back Surgery - (Added by TW Conv) PA NEUROPLASTY &/TRANSPOS MEDIAN NRV CARPAL TUNNE Neuroplasty [...] on file Legal Sex Female 1:19 PM WOOD FLOOR LAYER Gender Identity Not on file Sexual Orientation [...] Most Recently Relevant to Health Maintenance Insurance [facility] HMO/PPO Address: [address] [address] [place] [address] [facility] Advance Directives For more information, please contact: [phone] * Full Code (Latest Code Status on File) Date Activated Date Inactivated Comments 08/17/2021 9:30 AM 08/18/2021 4:36 AM Care Teams Door Serviceman Relationship Specialty Start Date End Date Molly Figueroa MD PCP - General Family Practice 08/29/22 Reena Solitario NP [address] [place] [address] [place] [address] Nurse Practitioner Psychiatry 10/26/22 Leana Luna NP [facility] [place] [address] Nurse Practitioner Family Practice 03/11/23
== END 2025-04-12 14:26 | disposition home or self-care (01) ==
PROVIDERS: PCP Nurse Practitioner Family; Visit Provider Plastic Surgery
DX: S62.613A Displaced fracture of proximal phalanx of left middle finger, initial encounter for closed fracture (principal); S62.615A Displaced fracture of proximal phalanx of left ring finger, initial encounter for closed fracture; X58.XXXA Exposure to other specified factors, initial encounter; M19.042 Primary osteoarthritis, left hand; M85.842 Other specified disorders of bone density and structure, left hand
CPT/HCPCS: 73130

== ENCOUNTER 2025-04-19 16:28 | Outpatient (CLI) | payer OTHER, SELFPAY ==
[2025-04-19 17:02] LABS: Hematocrit 37.6 % (37.0-47.0); Hemoglobin 11.4 g/dL (12.0-15.0); Immature Granulocyte Percent A 0.5 % (0-0.5); Lymphocytes Absolute Auto 2.43 K/mm3 (0.9-3.2); Mean Corpuscular HGB Conc 30.3 g/dl (32-36); Mean Corpuscular Hemoglobin 26.3 pg (26-34); Mean Corpuscular Volume 86.8 fl (80-100); Nucleated Red Blood Cells Absolute Auto 0.000 K/mm3 (0.0-0.012); Nucleated Red Blood Cells Perc 0.0 % (0.0-0.2); Platelet Count Result 119 k/mm3 (150-375); Red Blood Count 4.33 M/mm3 (4.2-5.4); White Blood Count 10.3 K/mm3 (4.5-10.0)
[2025-04-19 17:18] LABS: Alanine Aminotransferase 20 U/L (6-35); Albumin Level 3.9 g/dL (3.5-5.1); Alkaline Phosphatase 89 U/L (38-126); Anion Gap 7 mmol/L (4-12); Aspartate Amino Transferase 37 U/L (14-36); Bilirubin,Total 0.5 mg/dL (0.2-1.3); Blood Urea Nitrogen 15 mg/dL (7-17); CRP < 0.5 mg/dL (<1.0); Calcium 8.9 mg/dL (8.4-10.2); Carbon Dioxide 23 mmol/L (22-30); Chloride 105 mmol/L (98-107); Estimated Glomerular Filt Rate > 60; Glucose 124 mg/dL (65-110); Potassium 4.4 mmol/L (3.4-5.0); Sodium 135 mmol/L (137-145); Total Protein 7.4 g/dL (6.3-8.2)
[2025-04-19 17:55] LABS: Hepatitis B Surface Antigen Negative (Negative)
--- OUTSIDE RECORDS SUMMARY | 2025-04-19 18:56 | XMS_ITS | Clinical Summary ---
Author Organization [facility] Address [address] [place] [address] Care Team Providers Care Cafeteria Team Leader Name Role Phone Javi Meeks MD Primary Care Provider [phone] Source Comments [facility] [employer],non-owned Affiliates and Associated Physician Practices is amultiple site organization consisting of ambulatory clinics and hospital sitesin [place], [place], [place] and [place]. This disclosure is being madepursuant to the Care Everywhere program and may not contain all information available regarding this patient. 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 Ysqy-jb-drfl spots 08/29/2015 Fibromyalgia 05/18/2015 Family History Medical [...] on file Legal Sex Female 6:02 PM PBX MANAGER Gender Identity Not on file Sexual Orientation Not on file Last Filed Vital Signs Vital Sign Reading Time Taken Comments Blood Pressure 136/72 06/22/2015 8:42 AM PBX MANAGER Pulse 74 06/22/2015 8:42 AM PBX MANAGER Temperature 36.2 C (97.1 F) 06/22/2015 8:42 AM PBX MANAGER Respiratory Rate - - Oxygen Saturation 98% 06/22/2015 8:42 AM PBX MANAGER Inhaled Oxygen Concentration - - Weight 91.5 kg (201 lb 12.8 oz) 06/22/2015 8:42 AM PBX MANAGER Height 162.6 cm (5' 4) 06/22/2015 8:42 AM PBX MANAGER Body Mass Index 34.64 06/22/2015 8:42 AM PBX MANAGER Plan of Treatment Health Maintenance Due [...] Antibody <0.1 0.0 - 0.9 s/co ratio [facility] Comment: Negative: < 0.8 Indeterminate: 0.8 - 0.9 Positive: > 0.9 In order to reduce the incidence of a false positive result, the CDC recommends that all s/co ratios between 1.0 and 10.9 be confirmed by a more specific supplemental or PCR testing. [facility] offers HCV Ab w/Reflex to Verification test #[id number]. Blood specimen (specimen) BLOOD SPECIMEN / Unknown 05/18/2015 1:36 PM CDT 05/18/2015 4:06 PM CDT Narrative [facility] ([facility]) - 05/20/2015 7:18 AM CDT Performed at: 01 - [facility] [address] [place], [place] [id number] Talent Development Specialist: Santiago Jaime PhD, Phone: [phone] us Gayla Abreu MD LAB - CHEMISTRY OR DERABLES Edited Result - Final [facility]) [address] [place] [address] from Last 3 Months or Most Recently Relevant to Health Maintenance Insurance [facility] Care Teams Cafeteria Team Leader Relationship Specialty Start Date End Date Javi Meeks MD [address] [place] [address] PCP - General 05/16/18
--- OUTSIDE RECORDS SUMMARY | 2025-04-19 18:56 | XMS_ITS | Encounter Summary ---
Author Organization [facility] Address [address] [place] [address] Phone Care Team Providers Care Rn Pool Name Role Phone Javi Meeks MD Primary Care Provider [phone] Jose Panda MD Primary Care Provider [phone] Unknown, Notinfile Primary Care Provider Unavail able Molly Figueroa MD Primary Care Provider Reena Solitario ITALIAN LECTURER Unavailable [phone] Leana Luna ITALIAN LECTURER Unavailable [phone] Encounter Details Date Type Department Care Team (Late st Contact Info) Description 03/26/2022 Telephone [facility] Medicine Orthopaedic Surgery [address] [place] [address] Jassi Rene MD [address] [facility] [address] [place], [place] [id number] Social History Tobacco Use Types Packs/Day Years Used Date Smoking Tobacco: Never Smokeless Tobacco: Never Alcohol Use Standard Drinks/Week Comments Never 0 (1 standard drink = 0.6 oz pur e alcohol) Comments No Sex and Gender Information Value Date Recorded Sex Assigned at Not on file Legal Sex Female 1:19 PM QUALITY CONTROL MICROBIOLOGY SUPERVISOR Gender Identity Not on file Sexual Orientation Not on file documented as of this encounter Plan of Treatment Not on file documented as of this encounter Visit Diagnoses Not on filedocumented in this encounter Care Teams Rn Pool Relationship Specialty Start Date End Date Javi Meeks MD [address] [place] [address] PCP - General 10/15/16 06/03/22 Jose Panda MD [address] [place] [address] PCP - General Family Medicine 06/04/22 07/10/22 Unknown, Notinfile PCP - General 07/11/22 08/28/22 Molly Figueroa MD PCP - General Family Practice 08/29/22 Reena Solitario NP [address] [place] [address] Nurse Practitioner Psychiatry 10/26/22 Leana Luna NP [address] [place] [address] Nurse Practitioner Family Practice 03/11/23 documented as of this encounter
--- OUTSIDE RECORDS SUMMARY | 2025-04-19 18:56 | XMS_ITS | Clinical Summary ---
Author Organization [facility] Address [address] [place] [id number] Care Team Providers Care Reimbursement Consultant Name Role Phone Molly Figueroa MD Primary Care Provider Reena Solitario FLOATING OPERATOR Unavailable [phone] Leana Luna FLOATING OPERATOR Unavailable [phone] Allergies Active Allergy Reactions Criticality Noted [...] with breakfast 90 tablet 1 3 Active Additional Information Patient not taking.Reported on 04/14/[address] (CYMBALTA) 60 mg capsuleIndicatio ns:AMBER (generalized anxiety disorder) Take 1 capsule (60 mg total) by mouth 2 (two) times a day 180 capsule 1 3 Active zolpidem (AMBIEN) 5 mg tabletIndication s:Sleep-Onset Insomnia Take 1 tablet (5 mg total) by mouth nightly as needed for sleep 10 tabs needs to last 30 days 10 tablet 3 Active mupirocin (BACTROBAN) 2 % ointmentIndicati ons:Rash and nonspecific skin eruption Apply topically 3 (three) times a day To sores on face and torso for 2-3 weeks until healed 22 g 1 3 Active Additional Information Patient not taking.Reported on 04/14/2025 metoprolol tartrate (LOPRESSOR) 50 mg immediate release tabletIndication s:Hypertension, essential Take 1 tablet (50 mg total) by mouth 2 (two) times a day 180 tablet 1 3 Active methocarbamoL (ROBAXIN) 500 mg tabletIndication s:Chronic pain syndrome,Failed back syndrome,Fibromy algia Take 1-2 tablets (500-1,000 mg total) by mouth 3 (three) times a day as needed for muscle spasms 540 tablet 3 Active Additional Information Patient not taking.Reported on 04/14/2025 traZODone (DESYREL) 100 mg tablet Take 3 tablets (300 mg total) by mouth nightly 270 tablet 1 3 Active buprenorphine (BUTRANS) 10 mcg/hourIndicati ons:Lumbar post-laminectomy syndrome,Chronic midline low back pain without sciatica,Fibromy algia Place 1 patch on the skin every 7 days 4 patch 3 Active Additional Information Patient not taking.Reported on 04/14/2025 semaglutide 0.25 mg or 0.5 mg (2 mg/3 mL) pen injector injectionIndicat ions:Prediabetes Inject 0.5 mg under the skin every 7 days 9 mL 1 3 Active Additional Information Patient not taking.Reported on 04/14/2025 fluticasone propionate (FLONASE) 50 mcg/actuation nasal spray Administer 1 spray into each nostril daily Active spironolactone (ALDACTONE) 25 mg tablet by other route 5 Active folic acid (FOLVITE) 1 mg tablet Take 1 tablet (1 mg total) by mouth 4 Active ibuprofen 200 mg tab/cap Take by mouth every 6 (six) hours as needed for pain Active multivit-mineral -iron-lutein tablet Take by mouth Active ascorbic acid-vitamin E-biotin 7.5-7.5-1,250 mg-unit-mcg tablet,chewable Take by mouth Active guaiFENesin-pseu doephedrine (MUCINEX D) 600-60 mg per 12 hr tablet Take 1 tablet by mouth every 12 (twelve) hours Active trolamine salicylate 10 % cream Apply topically as needed for muscle/joint pain Active semaglutide (Wegovy) 2.4 mg/0.75 mL auto-injector Inject 2.4 mg under the skin every 7 days Active Active Problems Problem Noted Date Diagnosed Date Stenosis of right carotid artery 04/16/2025 Assessment & Plan (04/16/2025 12:02 PM CDT): Moderate to severe right ICA stenosis on CTA. Carotid duplex pending. Has had a couple episodes of dysarthria, workup has been negative for CVA. May represent amaurosis. Continue risk factor modification recommend 81 mg ASA and statin therapy. Follow up in the office after her carotid duplex. 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 Carotid duplex pending as well. We will follow up in the office to discuss further and a week or 2. Moderate episode of recurrent major depressive d [...] 0 10/09/2016 AMBER (generalized anxiety disorder) 10/09/2016 Orbn-bx-ewxo spots 08/29/2015 Fibromyalgia 05/18/2015 Vitamin D deficiency 03/10/2015 Hypertension, essential 03/10/2015 Assessment & Plan (04/16/2025 12:01 PM CDT): Stable continue metoprolol Spondylolisthesis of lumbar region 09/09/2013 Encounters Date Type Department Care Team Description 04/14/2025 9:15 AM CDT Office Visit [facility] at [address] [place] [id number] Tyree Perez MD Stenosis of right carotid artery (Primary Dx); Carotid body tumor (HCC); Hypertension, essential 04/14/2025 Orders Only [facility] at [address] [place] [phone] Tyree Perez MD Carotid stenosis, right (Primary Dx) 02/20/2025 3:50 PM CDT - 02/20/2025 11:59 PM CDT Hospital Encounter [facility] [address] [place] [address] Discharge Disposition: Discharge to home or self care 02/20/2025 3:45 PM CDT - 02/20/2025 11:59 PM CDT Hospital Encounter [facility] [address] [place] [address] Discharge Disposition: Discharge to home or self care from Last 3 Months Immunizations Immunization Administration Dates Next Due Influenza, [...] LUMBAR Lumbar Vertebral Fusion - (Added by Conv) IA ARTHRD ANT INTERBODY MIN DSC CRV BELOW C2 Cervical Vertebral Fusion - (Added by Conv) IA CHOLECYSTECTOMY Cholecystectomy - (Added by Conv) GASTRIC BYPASS High Gastric Bypass - (Added by Conv) IA ARTHROSCOPY KNEE W/MENISCUS RPR MEDIAL/LATERAL Knee Arthroscopy With Lateral Meniscus Repair - (Added by Conv) BACK SURGERY Back Surgery - (Added by Conv) IA NEUROPLASTY &/TRANSPOS MEDIAN NRV CARPAL TUNNE Neuroplasty Decompression Median Nerve At Carpal Tunnel - (Added by Conv) LAPRASCOPIC SUPRACERVICAL HYSTERECTOMY Supracervical Hysterectomy Laparoscopic - (Added by Conv) FACET BLOCK CERVICAL THORACIC 1 LEVEL LEFT 03/22/2021 Bilateral HYSTERECTOMY At age 41, partial SPINE SURGERY 7 surgeries beginnin g approx. 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 ago with concommitent BARIATRIC SURGERY Completed approx. 2009 Medical History Medical History Date Comments Personal history of other diseases of the respiratory system History of asthma - (Added by Conv) Personal history of other me ntal and behavioral disorders History of depression - (Added by Conv) Personal history of other diseases of the musculoskeletal system and connective tissue History of fibromyalgia - (Added by Conv) Hypertension Fibromyalgia Arthritis Sinusitis Depression Insomnia Anemia Until March 2022, n oted via blood results Anxiety Dx. over 10 yrs ago. Autoimmune disease Fibro myalgia Infection Upper resp. Infectio n, possible pneumonia. Family History Medical History Relation Name Comments Diabetes Brother Antonio Hewitt Vision loss Brother Antonio Hewitt Arthritis Father Jesus E. Scherff Family his tory of arthritis - (Added by Conv) Cancer Father Jesus E. Scherff brain tumo r Coronary artery disease Father Jesus E. Scherff Depression Father Jesus E. Scherff Diabetes Father Jesus E. Scherff Family his tory of diabetes mellitus - (Added by Conv) Hyperlipidemia Father Jesus E. Scherff Hypertension Father Jesus E. Scherff Family his tory of hypertension - (Added by Conv) Lung cancer Father Jesus E. Scherff Obesity Father Jesus E. Scherff Rashes / Skin problems Father Jesus E. Scherff Vision loss Father Jesus E. 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 Gender Identity Not on file Sexual Orientation Not on file Obstetrics History Last Filed Vital Signs Vital Sign Reading Time Taken Comments Blood Pressure 101/70 04/14/2025 9:20 AM CDT Pulse 76 04/14/2025 9:20 AM CDT Temperature 37.8 C (100.1 F) 01/12/2022 9:39 AM CDT Respiratory Rate 16 10/17/2022 3:35 PM CDT Oxygen Saturation 96% 04/14/2025 9:20 AM CDT Inhaled Oxygen Concentration - - Weight 110.7 kg (244 lb) 04/14/2025 9:20 AM CDT Height 163.8 cm (5' 4.5) 04/14/2025 9:20 AM CDT Body Mass Index 41.24 04/14/2025 9:20 AM CDT Plan of Treatment Health Maintenance Due Date Last Done Comments Breast Cancer Screening-Mammogram 1961 Hepatitis C Screening 1960 Hepatitis B Screening 11/27/1979 Regular Well Visit/Exam 18-64 11/27/1979 Pneumococcal vaccine <65 (1 of 2 - PCV) 1980 DTaP/Tdap/Td Vaccine (2 - Td or Tdap) 04/16/2017 04/16/2007, 04/02/1995 Depression Screening 10/27/2023 10/26/2022, 10/26/2022, 08/29/2022, Additional history exists Covid-19 Vaccine (4 - 2024-2 6 season) 2025 07/27/2021, 10/27/2020, 10/06/2020 Influenza Vaccine (#1) 2025 , 07/03/2019, 04/15/2018, Additional history exists Colon Cancer Screening-Colonoscopy 08/15/2027 08/15/2022 Colon Cancer Screening-CT Colonography Discontinued 08/15/2022 Colon Cancer Screening-DNA Stool Discontinued 08/15/19 Colon Cancer Screening-FIT Discontinued 08/15/2022 Colon Cancer Screening-Sigmoidoscopy Discontinued 08/15/2022 Zoster Vaccine Completed 04/07/2024, 01/22/2024 Procedures Procedure Name Priority Date/Time Associated Diagnosis Comments NEURO CT OUTSIDE REFERENCE Routine 02/20/2025 3:[address] OUTSIDE REFERENCE Routine 02/20/2025 3:45 PM CDT HM COLONOSCOPY Routine 08/15/2022 from Last 3 Months or Most Recently Relevant to Health Maintenance Results * Neuro CT Outside Reference (02/20/2025 3:50 PM CDT) Narrative [id number]_MHE - 04/14/2025 10:31 AM CDT This order has been auto-finalized and does not contain a result. us Provider Transcribed Order IMG CT PROCEDURES Fin al Result RAD_[id number]_MHE * Neuro CT Outside Reference (02/20/2025 3:45 PM CDT) Narrative KAMILAH_MHB_MHE - 04/14/2025 10:31 AM CDT This order has been auto-finalized and does not contain a result. us Provider Transcribed Order IMG CT PROCEDURES Fin al Result UOMAR_[id number]_MHE * HM COLONOSCOPY (08/15/2022) Historical Provider HEALTH MAINTENANCE Final Result from Last 3 Months or Most Recently Relevant to Health Maintenance Insurance [facility] [employer] Advance Directives For more information, please contact: [phone] * Full Code (Latest Code Status on File) Date Activated Date Inactivated Comments 08/17/2021 9:30 AM 08/18/2021 4:36 AM Care Teams Reimbursement Consultant Relationship Specialty Start Date End Date Molly Figueroa MD PCP - General Family Practice 08/29/22 Reena Solitario NP [address] [place] [address] Nurse Practitioner Psychiatry 10/26/22 Leana Luna NP [address] [place] [address] Nurse Practitioner Family Practice 03/11/23
--- OUTSIDE RECORDS SUMMARY | 2025-04-19 18:56 | XMS_ITS | Patient Health Record ---
Author Organization [facility] [employer] Address [address] [place] [address] Care Team Providers Care Gas Engine Repairer Name Role Phone Reena Solitario Unavailable [phone] Reason For Referral No Information Medications Medication SIG (Take, Route, Frequency, Duration) Notes Start Date End Date Status Methocarbamol 500 MG Tablet Oral 12/06/2022 Active DULoxetine HCl 60 MG Capsule Delayed Release Particles Oral 12/06/2022 Active busPIRone HCl 10 MG Tablet Oral 12/06/2022 Active Penicillin V Potassium 500 MG Tablet Oral 12/06/2022 Active Zolpidem Tartrate 10 MG Tablet Oral 12/06/2022 Active oxyCODONE HCl 5 MG Tablet Oral 12/06/2022 Active ProAir HFA 108 (90 Base) MCG/ACT Aerosol Solution Inhalation 12/06/2022 Active Buprenorphine 10 mcg/hour Patch Weekly Transdermal *Pick strength-form from IDx for eRX* 12/06/2022 Active Cyanocobalamin 1000 MCG/ML Solution Injection 12/06/2022 Active traZODone HCl 100 MG Tablet Oral 12/06/2022 Active traMADol HCl 50 MG Tablet Oral 12/06/2022 Active Metoprolol Tartrate 50 MG Tablet Oral 12/06/2022 Active Ozempic (0.25 or 0.5 MG/DOSE) 2 MG/3ML Solution Pen-injector Subcutaneous *Pick strength-form from IDx for eRX* 12/06/2022 Active Pregabalin 150 MG Capsule Oral 12/06/2022 Active Metoprolol Tartrate *Pick strength-form from [employer] for eRX* 12/06/2022 Active lamoTRIgine 25 MG Tablet Oral 12/06/2022 Active diazePAM 5 MG Tablet Oral 12/06/2022 Active Ergocalciferol 1.25 MG (27065 UT) Capsule Oral 12/06/2022 Active Ambien 5 MG Tablet Oral 12/06/2022 Active Immunizations Vaccine Route Administration Date Status Comme nts Influenza virus vaccine, quadrivalent (IIV4), split virus, 0.25 mL dosage Unknown 04/07/2018 Administered Social History Social History Additional Details Category Social Info Options Details Migrated Social History Migrated Social History Alcohol Intake: None 07/17/2018,Tobacco Years: Never smoker 06/02/2018 Plan Of Treatment No Information Insurance Providers Payer Name Payer Address Payer Phone Subscriber Number Group Number Insured Name Patient Relationship to Insured Coverage Start Date Coverage End Date r [address] [address] [place] [address] [id number] LUZ LUEVANO Self - patient is the insured
[2025-04-21 07:09] LABS: Hep B Core Ab, Total Negative (Negative)
== END 2025-04-19 16:29 | disposition home or self-care (01) ==
LOC: ANHLAB 16:31
PROVIDERS: PCP Nurse Practitioner Family; Visit Provider Nurse Practitioner
DX: M45.0 Ankylosing spondylitis of multiple sites in spine (principal)
CPT/HCPCS: 36415; 80053; 85025; 86140; 86480; 86704; 86803; 87340